=== PATIENT | female | born 1960 | race Caucasian/White ===

== ENCOUNTER 2024-10-21 18:09 | Outpatient (REF) | payer MEDICARE, OTHER, SELFPAY ==
--- OUTSIDE RECORDS SUMMARY | 2024-10-21 19:09 | XMS_ITS | Encounter Summary ---
Author Organization [facility] Address [address] [facility] [address] [place] [address] Phone Care Team Providers Care Combine Driver Name Role Phone Ramirez Wilhelm DO Unavailable Estefany Jackson BUILDING STONECUTTER Unavailable Belen Olvera MD Unavailable [phone] Laurie Lopez BUILDING STONECUTTER Unavailable [phone] Fide Atkinson NP Unavailable Summer Marrufo MD Unavailable [phone] Carlyle Ayon MD Unavailable Camron Richey MD Unavailable [phone] Laura Nicholas RDCS Unavailable [email or web address] Marci Contreras BUILDING STONECUTTER Unavailable [phone] Ramirez Wilhelm DO Primary Care Provider +[phone] Ramirez Wilhelm DO Unavailable Ramirez Wilhelm DO Primary Care Provider + Reason for Referral * MRI/CAT Scan - Closed Specialty Diagnoses / Procedures Referred By Ham donovan Referred To Contact Radiology Diagnoses LLQ pain Procedures MRI Pelvis (GI/) Sheri Ray PA 6 [facility] [place] [address] [place] [address] [facility] Main [address] Referral ID Status Reason Start Date Expiration Date Visits Re quested Visits Authorized [id number] Closed 05/13/2021 05/13/2022 1 1 Encounter Details Date Type Department Care Team (Latest Contact Info) Description 05/13/2021 Transcribe Orders Virtual Department 30 [place] [address] Sheri Ray PA [address] [place] [address] [place] [address] LLQ pain (Primary Dx) Social History Tobacco Use Types Packs/Day Years Used Date Smoking Tobacco: Never Smokeless Tobacco: Never Alcohol Use Standard Drinks/Week Comments Yes 2 (1 standard drink = 0.6 oz pur e alcohol) weekly Sex and Gender Information Value Date Recorded Sex Assigned at Not on file Gender Identity Not on file Sexual Orientation Not on file documented as of this encounter Plan of Treatment Upcoming Encounters Date Type Department Care Team (Late st Contact Info) Description 01/28/2025 1:45 PM EDT Office Visit [facility] [address] [place] [address] Jimy Morales MD [address] [place] [address] [email or web address] documented as of this encounter Results * MRI PELVIS WITH AND WITHOUT CONTRAST (05/26/2021 11:34 AM EDT) Anatomical Region Laterality Modality Pelvis Magnetic Resonan ce 05/26/2021 11:3 8 AM EDT Impressions 05/26/2021 12:05 PM EDT 1.1.5 cm simple right ovarian cyst. 2.Moderate left L5-S1 facet arthropathy and bone marrow edema. Narrative 05/26/2021 12:05 PM EDT COMPARISON: Pelvic ultrasound 03/28/2021. TECHNIQUE: Exam performed on a 1.5 Yenifer high-field MRI scanner. ??Large [id number] axial T1 through the bony pelvis, small field of view axial T2 and STIR, coronal T2 and sagittal T2 sequences were obtained. ??Axial T1 with fat suppression, coronal T1 with fat suppression and T2, followed by post-gadolinium axial, sagittal and coronal T1 with fat suppression sequences were obtained. MRI PELVIS FINDINGS: Vasculature: Normal. Genitourinary: Nondistended bladder. Uterus, endometrium and left ovary are normal. No adnexal masses. Incidental 1.5 cm simple right ovarian cyst. Gastrointestinal tract: Imaged intestinal tract is normal. Peritoneum/retroperitoneum: ??No lymphadenopathy, ascites or fluid collections. Musculoskeletal: No destructive or suspicious bone lesions. Moderate left L5-S1 facet arthropathy and bone marrow edema. Procedure Note Bill Romo MD - 05/26/2021 COMPARISON: Pelvic ultrasound 03/28/2021. TECHNIQUE: Exam performed on a 1.5 Yenifer high-field MRI scanner. [id number] axial T1 through the bony pelvis, small field of view axialT2 and STIR, coronal T2 and sagittal T2 sequences were obtained. Axial T1with fat suppression, coronal T1 with fat suppression and T2, followed bypost-gadolinium axial, sagittal and coronal T1 with fat suppressionsequences were obtained. MRI PELVIS FINDINGS: Vasculature: Normal. Genitourinary: Nondistended bladder. Uterus, endometrium and left ovaryare normal. No adnexal masses. Incidental 1.5 cm simple right ovariancyst. Gastrointestinal tract: Imaged intestinal tract is normal. Peritoneum/retroperitoneum: No lymphadenopathy, ascites or fluidcollections. Musculoskeletal: No destructive or suspicious bone lesions. Moderate leftL5-S1 facet arthropathy and bone marrow edema. IMPRESSION: 1.1.5 cm simple right ovarian cyst. 2.Moderate left L5-S1 facet arthropathy and bone marrow edema. Sheri RODRIGUEZ MR PELVIS documented in this encounter Visit Diagnoses Diagnosis LLQ pain- Primary Abdominal pain, left lower quadrant LLQ pain Abdominal pain, left lower quadrant documented in this encounter Care Teams Combine Driver Relationship Specialty Start Date End Date Ramirez Wilhelm DO PCP - General 05/07/17 10/13/24 Choco Ramirez LeDO 179 [facility] [place] [address] PCP - General Internal Medicine 10/14/24 Ramirez Wilhelm DO Historical LMR Provider 05/07/17 Estefany Jackson NP [address] [place] [address] Historical LMR Provider 05/07/17 2 Belen Olvera MD [address] [address] Historical LMR Provider 05/07/17 Laurie Lopez NP [address] [place] [phone] Historical LMR Provider 05/07/17 2 Fide Atkinson NP 21 [place] [address] [email or web address] Historical LMR Provider 05/07/17 2 Summer Marrufo MD 15 [facility], 2nd [place] [address] Historical LMR Provider 05/07/17 Carlyle Ayon MD [address] [place] [address] 202 [place] [address] Historical LMR Provider 05/07/17 07/30/21 Camron Richey MD [address] [place] [address] [address] [place] [address] Historical LMR Provider 05/07/17 07/30/21 Laura Nicholas, [facility] Historical LMR Provider 05/07/17 07/30/21 Marci Contreras NP [address] [place] [address] Historical LMR Provider 05/07/17 2 Ramirez Wilhelm DO [address] [place] [address] [place] [address] Insurance Assigned Provider 05/29/20 10/28/22 documented as of this encounter Additional Source Comments The information contained in this document represents components of the legal health record. It is not the complete legal health record.[facility]
--- OUTSIDE RECORDS SUMMARY | 2024-10-21 19:09 | XMS_ITS | Encounter Summary ---
Author Organization [facility] Address 399 [facility] [address] [place] [address] Phone Care Team Providers Care Coding Assistant Name Role Phone Heathersharmaine Ramirez Le DO Unavailable Estefany Jackson CLEAN ROOM TECHNICIAN Unavailable Belen Olvera MD Unavailable Laurie Lopez CLEAN ROOM TECHNICIAN Unavailable Fide Atkinson CLEAN ROOM TECHNICIAN Unavailable Summer Marrufo MD Unavailable Carlyle Ayon MD Unavailable Camron Richey MD Unavailable [phone] Laura Nicholas RDCS Unavailable [email or web address] Marci Contreras CLEAN ROOM TECHNICIAN Unavailable [phone] Ramirez Wilhelm DO Primary Care Provider [phone] Ramirez Wilhelm DO Unavailable Ramirez Wilhelm DO Primary Care Provider [phone] Encounter Details Date Type Department Care Team (Latest Contact Info) Description 01/19/2021 Transcribe Orders Virtual Department 30 [place] [address] Sheri Ray PA [address] [place] [address] [place] [address] Ventral hernia without obstruction or gangrene (Primary Dx) Social History Tobacco Use Types [...] Description 01/28/2025 1:45 PM EDT Office Visit [facility] 22 [facility] 301 [place] [address] Jimy Morales MD 22 [facility], [facility] 301 [place] [address] [email or web address] documented as of this encounter Results * US ABDOMINAL WALL (02/03/2021 12:41 PM EDT) Anatomical Region Laterality Modality Abdomen Ultrasound 02/03/2021 1:05 PM EDT Impressions 02/03/2021 1:09 PM EDT Unremarkable targeted ultrasound at the patient's area of concern. Narrative 02/03/2021 1:09 PM EDT PROCEDURE: ??Focused ultrasound of the abdomen was performed to assess the patient's area of concern, in the left lower quadrant. TECHNIQUE: Limited ultrasound evaluation of the abdomen focused on the was performed to assess the left lower quadrant, at the patient's area of concern. COMPARISON: Abdominopelvic CT from 04/14/2020 FINDINGS: Unremarkable targeted ultrasound at the patient's area of concern. No focal lesions or masses identified. Procedure Note Tio Kline MD - 02/03/2021 PROCEDURE: Focused ultrasound of the abdomen was performed to assess thepatient's area of concern, in the left lower quadrant. TECHNIQUE: Limited ultrasound evaluation of the abdomen focused on the wasperformed to assess the left lower quadrant, at the patient's area ofconcern. COMPARISON: Abdominopelvic CT from 04/14/2020 FINDINGS: Unremarkable targeted ultrasound at the patient's area of concern. Nofocal lesions or masses identified. IMPRESSION: Unremarkable targeted ultrasound at the patient's area of concern. Sheri Rayo Flor GALLARDO IMG US ABDOMEN documented in this encounter Visit Diagnoses Diagnosis Ventral hernia without obstruction or gangrene- Primary Unspecified ventral hernia without mention of obstruction or gangrene Ventral hernia without obstruction or gangrene Unspecified ventral hernia without mention of obstruction or gangrene documented in this encounter Additional Health Concerns Infection Onset Date Last Indicated Resolved Time CoV-Risk 02/28/2021 02/28/2021 03/10/2021 1:41 AM EDT documented as of this encounter Care Teams Coding Assistant Relationship Specialty Start Date End Date Ramirez Wilhelm DO PCP - General 05/07/17 10/13/24 Ramirez Wilhelm DO [address] [facility] [place] [address] PCP - General Internal Medicine 10/14/24 Ramirez Wilhelm DO Historical LMR Provider 05/07/17 Estefany Jackson NP [address] [place] [address] [address] [place] [address] Historical LMR Provider 05/07/17 2 Belen Olvera MD [address] [place] [address] [address] [place] [address] Historical LMR Provider 05/07/17 Laurie Lopez CLEAN ROOM TECHNICIAN [address] [facility] [place] [address] Historical LMR Provider 05/07/17 2 Fide Atkinson NP 21 [place] [address] [email or web address] Historical LMR Provider 05/07/17 2 Summer Marrufo MD 15 [facility], 2nd [place] [address] Historical LMR Provider 05/07/17 Carlyle Ayon MD [address] [address] Historical LMR Provider 05/07/17 07/30/21 Camron Richey MD [address] [address] Historical LMR Provider 05/07/17 07/30/21 Laura Nicholas RDCS Historical LMR Provider 05/07/17 07/30/21 Marci Contreras NP [address] [place] [address] Historical LMR Provider 05/07/17 2 Ramirez Wilhelm DO 179 [facility] [place] [address] Insurance Assigned Provider 05/29/20 10/28/22 documented as of this encounter Additional Source Comments The information contained in this document represents components of the legal health record. It is not the complete legal health record.[facility]
--- OUTSIDE RECORDS SUMMARY | 2024-10-21 19:09 | XMS_ITS | Encounter Summary ---
Author Organization [facility] Address [address] [facility] [address] [place] [address] Phone Care Team Providers Care Safety Sealer Name Role Phone Heathersharmaine Ramirez Le DO Unavailable Estefany Jackson FLOW MANAGER Unavailable Belen Olvera MD Unavailable Laurie Lopez FLOW MANAGER Unavailable Fide Atkinson FLOW MANAGER Unavailable Summer Marrufo MD Unavailable Carlyle Ayon MD Unavailable Camron Richey MD Unavailable [phone] Laura Nicholas RDCS Unavailable [email or web address] Marci Contreras FLOW MANAGER Unavailable [phone] Ramirez Wilhelm DO Primary Care Provider [phone] Ramirez Wilhelm DO Unavailable Ramirez Wilhelm DO Primary Care Provider [phone] Encounter Details Date Type Department Care Team (Latest Contact Info) Description 12/17/2020 Transcribe Orders Virtual Department 30 [place] [address] Jorge Quiroz MD 10 [place], [place] [phone] Pre-procedure lab exam (Primary Dx) Social History Tobacco Use Types [...] Description 01/28/2025 1:45 PM EDT Office Visit [facility] [address] [place] [address] 301 [place] [address] Jimy Morales MD [address] [place] [address] [email or web address] documented as of this encounter Results * COVID-19 PCR Order (12/22/2020 2:10 PM EDT) COVID-19 Comment [id number] [facility] COVID Testing Status In-house testing being performed [facility] 12/22/2020 2:10 PM EDT 12/22/2020 3:56 PM EDT Jorge Quiroz MD BODY FLUIDS AND STOO LS ORDERABLES [facility] 30 [place] [address] documented in this encounter Visit Diagnoses Diagnosis Pre-procedure lab exam- Primary Pre-procedural laboratory examination documented in this encounter Additional Health Concerns Infection Onset Date Last Indicated Resolved Time CoV-Risk 02/28/2021 02/28/2021 03/10/2021 1:41 AM EDT documented as of this encounter Care Teams Safety Sealer Relationship Specialty Start Date End Date Ramirez Wilhelm DO PCP - General 05/07/17 10/13/24 Ramirez Wilhelm DO [address] [place] [address] [place] [address] PCP - General Internal Medicine 10/14/24 Ramirez Wilhelm DO Historical LMR Provider 05/07/17 Estefany Jackson NP [address] [place] [address] 340 [place] [address] Historical LMR Provider 05/07/17 2 Beeln Olvera MD [address] [place] [address] 102 [place] [address] Historical LMR Provider 05/07/17 Laurie Lopez NP [address] [place] [address] [place] [address] Historical LMR Provider 05/07/17 2 Fide Atkinson NP 21 [place] [address] [email or web address] Historical LMR Provider 05/07/17 2 Summer Marrufo MD 15 [facility], 2nd [place] [address] Historical LMR Provider 05/07/17 Carlyle Ayon MD [address] [place] [address] 202 [place] [address] Historical LMR Provider 05/07/17 07/30/21 Camron Richey MD 22 [facility] 102 [place] [address] Historical LMR Provider 05/07/17 07/30/21 Laura Nicholas RDCS Historical LMR Provider 05/07/17 07/30/21 Marci Contreras NP [address] [place] [address] Historical LMR Provider 05/07/17 2 Ramirez Wilhelm DO [address] [place] [address] [place] [address] [email or web address] Insurance Assigned Provider 05/29/20 10/28/22 documented as of this encounter Additional Source Comments The information contained in this document represents components of the legal health record. It is not the complete legal health record.[facility]
--- OUTSIDE RECORDS SUMMARY | 2024-10-21 19:09 | XMS_ITS | Encounter Summary ---
Author Organization [facility] Address 399 [facility] [address] [place] [address] Phone Care Team Providers Care Vascular Technologist Sonographer Name Role Phone Choco Ramirez Le DO Unavailable Estefany Jackson CURTAIN MENDER Unavailable [phone] Belen Olvera MD Unavailable [phone] Laurie Lopez CURTAIN MENDER Unavailable [phone] Fide Atkinson NP Unavailable [phone] Summer Marrufo MD Unavailable [phone] Carlyle Ayon MD Unavailable Camron Richey MD Unavailable [phone] Laura Nicholas RDCS Unavailable [email or web address] Marci Contreras CURTAIN MENDER Unavailable [phone] Ramirez Wilhelm DO Primary Care Provider [phone] Bigsharmaine, Ramirez Le DO Unavailable Ramirez Wilhelm DO Unavailable + Bigsharmaine, Ramirez Le DO Primary Care Provider + Reason for Referral * MRI/CAT Scan - Closed Specialty Diagnoses / Procedures Referred By Ham donovan Referred To Contact Radiology Diagnoses Abdominal pain, unspecified abdominal location Procedures CT Abdomen/Pelvis Sheri Ray PA 6 [facility] [place] [address] [facility] Main [place] [address] [place] [address] Referral ID Status Reason Start Date Expiration Date Visits Re quested Visits Authorized [id number] Closed 04/06/2020 05/06/2020 1 1 Encounter Details Date Type Department Care Team (Latest Contact Info) Description 04/07/2020 Transcribe Orders Virtual Department 30 [place] [address] Sheri Ray PA [address] [place] [address] [place] [address] Abdominal pain, unspecified abdominal location (Primary Dx) Social History Tobacco Use Types Packs/Day Years Used Date Smoking Tobacco: Never Assessed Sex and Gender Information Value Date Recorded Sex Assigned at Not on file Gender Identity Not on file Sexual Orientation Not on file documented as of this encounter Plan of Treatment Upcoming Encounters Date Type Department Care Team (Late st Contact Info) Description 01/28/2025 1:45 PM EDT Office Visit [facility] [address] [place] [address] Jimy Morales MD [address] [place] [address] [email or web address] documented as of this encounter Results * CT ABDOMEN/PELVIS WITH CONTRAST (04/14/2020 4:20 PM EDT) Anatomical Region Laterality Modality Abdomen, Pelvis Computed Tomogra phy 04/14/2020 4:33 PM EDT Impressions 04/14/2020 4:40 PM EDT Stable non-obstructing small left intrarenal calculus. No evidence of pyelonephritis, abscess, or other acute intra-abdominal or retroperitoneal pathology. TOTAL CTDIvol: mGy POS - [id number] Narrative 04/14/2020 4:40 PM EDT COMPARISON: 01/18/[address] and 04/19/[address] TECHNIQUE: Helical scanning was performed from the dome of the liver through the inferior pubic rami following intravenous administration of contrast material. ??Sagittal and coronal reformats generated. Automated exposure control utilized. FINDINGS: There is a stable 3 mm calculus in the lower pole of the left kidney. No additional urinary calculi identified. No renal mass, abscess, cyst, hydronephrosis, or perinephric stranding identified. Bladder is collapsed, limiting evaluation. Liver is stable in appearance without focal mass lesions, dominant cysts, bile duct dilatation, or perihepatic ascites having developed in the interim. There are small chronic cysts in the right and left hepatic lobes. Spleen and adrenal glands are unremarkable in appearance. Small chronic splenule. No pancreatic mass, duct dilatation, or peripancreatic inflammatory changes are noted. No evidence of small bowel obstruction. Appendix unremarkable in appearance. No paracolic inflammatory changes are present. No free fluid collections are demonstrated in the dependent portion of the pelvis. No bowel containing abdominal wall hernia. No evidence of aortoiliac aneurysm. No pathologically enlarged mesenteric, para-aortic, iliac chain, or inguinal lymph nodes are identified. 455 no acute airspace infiltrate or pleural effusion demonstrated at the lung bases. No traumatic or destructive skeletal lesions are apparent. Procedure Note Robel Rodney MD - 04/14/2020 COMPARISON: 01/18/[address] and 04/19/[address] TECHNIQUE: Helical scanning was performed from the dome of the liverthrough the inferior pubic rami following intravenous administration ofcontrast material. Sagittal and coronal reformats generated. Automatedexposure control utilized. FINDINGS: There is a stable 3 mm calculus in the lower pole of the left kidney. Noadditional urinary calculi identified. No renal mass, abscess, cyst,hydronephrosis, or perinephric stranding identified. Bladder is collapsed,limiting evaluation. Liver is stable in appearance without focal mass lesions, dominant cysts,bile duct dilatation, or perihepatic ascites having developed in theinterim. There are small chronic cysts in the right and left hepaticlobes. Spleen and adrenal glands are unremarkable in appearance. Small chronicsplenule. No pancreatic mass, duct dilatation, or peripancreaticinflammatory changes are noted. No evidence of small bowel obstruction. Appendix unremarkable inappearance. No paracolic inflammatory changes are present. No free fluidcollections are demonstrated in the dependent portion of the pelvis. Nobowel containing abdominal wall hernia. No evidence of aortoiliac aneurysm. No pathologically enlarged mesenteric,para-aortic, iliac chain, or inguinal lymph nodes are identified. 455 no acute airspace infiltrate or pleural effusion demonstrated at thelung bases. No traumatic or destructive skeletal lesions are apparent. IMPRESSION: Stable non-obstructing small left intrarenal calculus. No evidence ofpyelonephritis, abscess, or other acute intra-abdominal or retroperitonealpathology. TOTAL CTDIvol: mGy POS - [id number] Sheri GALLARDO IMQuinton CT ABD/PELVIS documented in this encounter Visit Diagnoses Diagnosis Abdominal pain, unspecified abdominal location- Primary Abdominal pain, unspecified abdominal location documented in this encounter Additional Health Concerns Infection Onset Date Last Indicated Resolved Time CoV-Risk 02/28/2021 02/28/2021 03/10/2021 1:41 AM EDT documented as of this encounter Care Teams Vascular Technologist Sonographer Relationship Specialty Start Date End Date Ramirez Wilhelm DO [email or web address] PCP - General 05/07/17 10/13/24 Ramirez Wilhelm DO 179 [facility] [address] [email or web address] PCP - General Internal Medicine 10/14/24 Ramirez Wilhelm DO [email or web address] Historical LMR Provider 05/07/17 Estefany Jackson NP [address] [address] Historical LMR Provider 05/07/17 2 Belen Olvera MD [address] [address] Historical LMR Provider 05/07/17 Laurie Lopez NP [address]455 [place] [address] Historical LMR Provider 05/07/17 2 Fide Atkinson NP [address] [place] [address] [email or web address] Historical LMR Provider 05/07/17 2 Summer Marrufo MD 15 [facility], 2nd [place] [address] Historical LMR Provider 05/07/17 Carlyle Ayon MD [address] [place] [address] Historical LMR Provider 05/07/17 07/30/21 Camron Richey MD [address] [address] Historical LMR Provider 05/07/17 07/30/21 Laura Nicholas, [place] Historical LMR Provider 05/07/17 07/30/21 Marci Contreras NP [address] [place] [address] Historical LMR Provider 05/07/17 2 HeatherRamirez schmid DO [address] [place] [address] Insurance Assigned Provider 11/23/18 05/01/20 Ramirez Wilhelm DO 179 [place] [address] Insurance Assigned Provider 05/29/20 10/28/22 documented as of this encounter Additional Source Comments The information contained in this document represents components of the legal health record. It is not the complete legal health record.[facility]
--- OUTSIDE RECORDS SUMMARY | 2024-10-21 19:09 | XMS_ITS | Encounter Summary ---
Author Organization [facility] Address [address] [facility] [address] [place] [phone] Phone Care Team Providers Care City Superintendent Name Role Phone Ramirez Wilhelm DO Unavailable Estefany Jackson SUPERVISOR TYPE BAR AND SEGMENT Unavailable [phone] Belen Olvera MD Unavailable [phone] Laurie Lopez SUPERVISOR TYPE BAR AND SEGMENT Unavailable [phone] Fide Atkinson NP Unavailable [phone] Summer Marrufo MD Unavailable [phone] Carlyle Ayon MD Unavailable Camron Richey MD Unavailable [phone] Laura Nicholas RDCS Unavailable [email or web address] Marci Contreras SUPERVISOR TYPE BAR AND SEGMENT Unavailable [phone] Ramirez Wilhelm DO Primary Care Provider +[phone] Ramirez Wilhelm DO Unavailable Ramirez Wilhelm DO Primary Care Provider [phone] Encounter Details Date Type Department Care Team (Late st Contact Info) Description 04/01/2021 Procedure Pass [facility] - [address] [place] [address] Social History Tobacco Use Types Packs/Day Years [...] Upcoming Encounters Date Type Department Care Team ([facility] Contact Info) Description 01/28/2025 1:45 PM EDT Office Visit [facility] [address] [place] [address] [address] [place] [address] Jimy Morales MD [address] [place] [address] [address] [place] [address] documented as of this encounter Visit Diagnoses Not on filedocumented in this encounter Care Teams City Superintendent Relationship Specialty Start Date End Date Ramirez Wilhelm DO PCP - General 05/07/17 10/13/24 Ramirez Wilhelm DO [address] [place] [address] [place] [address] PCP - General Internal Medicine 10/14/24 Ramirez Wilhelm DO Historical LMR Provider 05/07/17 Estefany Jackson NP [address] [place] [phone] Historical LMR Provider 05/07/17 2 Belen Olvera MD [address] [place] [address] [address] [place] [address] Historical LMR Provider 05/07/17 Laurie Lopez SUPERVISOR TYPE BAR AND SEGMENT [address] [place] [phone] Historical LMR Provider 05/07/17 2 Fide Atkinson NP [address] [place] [address] [email or web address] Historical LMR Provider 05/07/17 2 Summer Marrufo MD [address] [facility], [address]nd [place] [address] Historical LMR Provider 05/07/17 Carlyle Ayon MD [address] [place] [address] Historical LMR Provider 05/07/17 07/30/21 Camron Richey MD [address] [facility] [place] [address] [place] [address] Historical LMR Provider 05/07/17 07/30/21 Laura Nicholas, [place] Historical LMR Provider 05/07/17 07/30/21 Marci Contreras NP [address] [place] [address] Historical LMR Provider 05/07/17 2 Ramirez Wilhelm DO [address] [place] [address] [place] [address] Insurance Assigned Provider 11/7/20 4/8/23 documented as of this encounter Additional Source Comments The information contained in this document represents components of the legal health record. It is not the complete legal health record.[facility]
--- OUTSIDE RECORDS SUMMARY | 2024-10-21 19:09 | XMS_ITS | Data Portability ---
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) MDM MODERATE MUST MEET 2 OUT OF 3 ELEMENTS: PROBLEMS, DATA OR RISK ELEMENT 1: PROBLEMS ADDRESSED 1 OR MORE CHRONIC ILLNESS WITH EXACERBATION OR 2 OR MORE STABLE CHRONIC ILLNESSES OR 1 UNDIAGNOSED NEW PROBLEM OR 1 ACUTE ILLNESS W/SYMPTOMS OR 1 ACUTE COMPLICATED INJURY ELEMENT 2: DATA MUST MEET 1 OF 3 CATEGORIES CATEGORY 1: REVIEW OF PRIOR EXTERNAL NOTES, REVIEW OF RESULTS, ORDERING OF EACH TEST, ASSESSMENT REQUIRING INDEPENDENT HISTORIAN OR CATEGORY 2: INDEPENDENT INTERPRETATION OF TESTS BY ANOTHER PHYSICIAN OR SPECIALIST OR CATEGORY 3: DISCUSSION OF MGT OR TEST INTERPRETATION W/EXTERNAL PHYSICIAN OR SPECIALIST ELEMENT 3: RISK RISK OF COMPLICATIONS AND/OR MORBIDITY OR MORTALITY OF PATIENT MANAGEMENT PROVIDER MUST THOROUGHLY DOCUMENT EACH ELEMENT THAT IS COVERED Not available 04/02/2023 12:31:44 09/03/2023 09/03/2023 Patient agreed and verbally consents to this audio and video Telehealth appt via a secure platform [email or web address] Not available 09/03/2023 10:30:08 Plan of Treatment Reminders Order Date Submit Date Provider Last Modified By Organization Details Last Modified Time Details Appointments FOLLOW UP 15 2024 02:30P M SAMI LUTZ Not available Not available Not available Lab urinalysi s complete, reflex culture 2024 025 [facility], [address] [facility], [place], [address], 10/21/2024 14:43:44 vitamin D, 25-hydrox y, total, serum 2022 023 [facility], [address] [facility], [address], [place], [address], 04/02/2023 12:36:13 lipid panel, blood 2022 023 [facility], [address], [address], [place], [address], 04/02/2023 12:36:13 CMP, serum or plasma 2022 023 [facility], [address] [place] [address], [address], [place], [address], 04/02/2023 12:36:13 CBC w/ auto diff 2022 023 [facility], [address] [facility] [address], [address], [place], [address], 04/02/2023 12:36:[address] referral [address] [facility], [address] [place] [address], [address], 09/05/2023 10:20:49 Procedures None recorded. Surgeries None recorded. Imaging XR, kidney + ureter + bladder 2024 025 [facility] ([place]), [address] [place] [address] Loren Hess, [place], [address], 10/21/2024 15:33:29 XR, elbow, 3 or more view 2024 025 [email or web address] [facility] ([place]oren)[address] [place], [address], 10/21/2024 15:33:29 CT, heart, w/o contrast, w/ coronary calcium score 2022 023 [facility], [address] [place], [address], 04/09/2023 09:34:15 XR, ribs, bilateral 2021 022 [email or web address] Not available 03/13/2022 08:52:51 Medication Orders prednison e 10 mg tablet 2023 024 [facility], [address] [place], [address], 09/03/2023 10:34:08 Cipro 500 mg tablet 2023 024 [facility], [address] [place], [address], 09/03/2023 10:34:18 losartan 25 mg tablet 2022 023 [facility], [address] [place], [address], 04/02/2023 12:35:51 tramadol 50 mg tablet 2021 022 [facility], [address] [place], [address], 02/27/2022 15:23:24 oxycodone 5 mg tablet 2021 022 [facility] [address] [place], [address], 04/02/2023 12:02:19 Patient TargetsNo targets recorded. 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 [facility] [address] [place] [address] Dr, [place] Pimentel, [address], 04/02/2023 12:23:27 06/22/20 23 06/22/2023 CT, heart , w/o contr ast, w/ coron gianluca calci um score No observ ation record ed. [facility] [address] [place], [address], 06/22/2023 13:36:04 Result Notes None recorded. Problems Name Problem SNOMED Code Status Onset Date Resolution Date Notes Provider Name and Address Organization Details Recorded Time Edema of lower extremit y 533689101 Active 2017 Not Available [facility] 2 10:11:50 Epigastr ic pain 76915579 Active 2017 Not Available [facility] 2 10:11:50 Fracture of fourth lumbar vertebra 878625564 Active 2018 Not Available [facility] 2 10:11:50 Rib pain 053010309 Active 2021 SAMI LUTZ [address] [place], [address], [facility] 2 14:50:37 Vitamin D deficien 71646558 Active 2022 Ramirez Wilhelm DO [address] [place], [address], [facility] 3 12:31:54 Chronic cough 68249357 Active 2022 Ramirez Wilhelm DO [address] [place] [address], [address], [facility] 3 12:33:44 COVID-19 263210434 Active 2022 Ramirez Wilhelm DO [address] [place] [address], [address], [facility] 3 13:01:56 Cough 37647041 Active 2022 Ramirez Wilhelm DO [address] [place] [address], [address], [facility] 3 15:15:32 Hearing loss 62279156 Active 2022 Ramirez Wilhelm DO [address] [place] [address], [address], [facility] 3 21:20:45 Pain in throat 499264525 Active 2023 SAMI LUTZ [address] [place] [address], [address], [facility] 4 10:29:39 Acute pharyngi tis 967264100 Active 2023 SAMI LUTZ [address] [place] [address], [address], [facility] 4 10:29:58 Pain of breast 77208623 Active 2023 Ramirez Wilhelm DO [address] [place] [address], [address], [facility] 4 23:00:54 Pain of right breast 1538537455 Active 2023 Ramirez Wilhelm DO [address] [place] [address], [address], [facility] 4 13:37:45 Sleep apnea 42259654 Active 2023 Ramirez Wilhelm DO [address] [place], [address], [facility] 4 21:52:43 Acute urinary tract infectio n 842521891 Active 2023 SAMI LUTZ [address] [place], [address], [facility] 4 12:31:24 Dysuria 85227114 Active 2024 SAMI LUTZ [address] [place], [address], [facility] 5 14:41:17 Cystitis 96092043 Active 2024 SAMI LUTZ [address] [place], [address], [facility] 5 14:45:36 Pain of left elbow joint 04093055095 214238 Active 2024 SAMI LUTZ [address] [place], [address], [facility] 5 14:49:41 Essentia l hyperten thai 31456390 Active 2017 Not Available [facility] 2 10:11:50 Hypercho lesterol emia 35512179 Active 2017 Not Available [facility] 2 10:11:50 Polyp 936873897 Active 2017 Endometri al polyp Not Available [facility] 2 10:11:50 Cyst of ovary 75726567 Active 2017 Not Available [facility] 2 10:11:50 History of calculus of kidney 618225005 Active 2017 Not Available [facility] 2 10:11:50 Family history of malignan t neoplasm 539908012 Active 2017 cancer of the ovaries and breast cancer Not Available [facility] 2 10:11:50 Problem Notes None recorded. Procedures Surgical History None recorded. Imaging Results Imaging Date Name Status LastModified by Organiz ation Details LastModified Time 05/15/2022 MAMMO, screening, digital, bilateral completed [facility] [address] [place], [address], 04/02/2023 12:23:27 06/22/2023 CT, heart, w/o contrast, w/ coronary calcium score completed [facility] [address] [place], [address], 06/22/2023 13:36:04 Procedure Notes None recorded. Medical Equipment None Reported. Allergies Allergen ID Allergen Name Allergen Category Reaction Reaction Severity Criticality Documentation Date Start Date Code Code System Note Provider Name and Address Organization Details Recorded Time 1492 Bactrim medicatio n Not available Not available Not available 12/19/2017 51639 9 RxNorm Susan álvarez [facility] 8 15:04:07 1493 erythromy kelli medicatio n Not available Not available Not available 12/19/2017 4053 RxNorm Susan álvarez [facility] 8 15:04:27 Medications Name Sig Start Date Stop Date Status Note LastModified by Organization Details LastModified Time amoxicillin 500 mg capsule TAKE 1 CAPSULE EVERY 8 HOURS BY ORAL ROUTE FOR 10 DAYS. active Not Available Not Available No t Available Anti-Diarrh eal (loperamide ) 2 mg tablet TAKE 1 TABLET BY MOUTH TWICE A DAY FOR 15 DAYS 09/15 completed Not Available Not Available Not Available atorvastati n 40 mg tablet TAKE 1 TABLET BY MOUTH EVERY DAY 2024 active Not Available Not Available Not Avai lable prednisone 10 mg tablet PLEASE SEE ATTACHED FOR DETAILED DIRECTION S active Not Available Not Available No t Available cefuroxime axetil 250 mg tablet Take 1 tablet every 12 hours by oral route for 10 days. 12/28 completed Not Available Not Available Not Available azithromyci n 250 mg tablet TAKE 2 TABLETS BY MOUTH TODAY, THEN TAKE 1 TABLET DAILY FOR 4 DAYS DIRECTED active Not Available Not Available No t Available metoprolol succinate ER 50 mg tablet,exte nded release 24 hr TAKE 1 TABLET BY MOUTH EVERY DAY active Not Available Not Available No t Available atenolol 100 mg tablet 12/21 completed Not Available Not Available Not Available Patanol 0.1 % eye drops INSTILL 1 DROP INTO AFFECTED EYE(S) BY OPHTHALMI C ROUTE 2 TIMES PER DAY AT AN INTERVAL OF 6 TO 8 HOURS 04/17 completed Not Available Not Available Not Available hydrocodone 5 mg-acetamin ophen 325 mg tablet Take 1 tablet every 6 hours by oral route for 7 days. 02/17 completed Not Available Not Available Not Available fluticasone propionate 0.05 % topical cream APPLY TWICE A DAY TO AFFECTED AREAS FOR TWO WEEKS DIRECTED active Not Available Not Available No t Available fluorouraci l 5 % topical cream PLEASE SEE ATTACHED FOR DETAILED DIRECTION S active Not Available Not Available No t Available ciprofloxac in 250 mg tablet TAKE 1 TABLET BY MOUTH TWICE A DAY FOR 5 DAYS active Not Available Not Available No t Available amlodipine 5 mg tablet take 1 tablet by mouth once a day 01/06 completed Not Available Not Available Not Available tretinoin 0.05 % topical cream APPLY A PEA SIZED AMOUNT TO ENTIRE FACE 2-3 NIGHTS A WEEK active Not Available Not Available No t Available ciprofloxac in 500 mg tablet TAKE 1 TABLET BY MOUTH EVERY 12 HOURS FOR 7 DAYS active Not Available Not Available No t Available tramadol 50 mg tablet Take 1 tablet every 6 hours by oral route as needed for 15 days. 02/27 completed Not Available Not Available Not Available ketorolac 0.5 % eye drops PLACE 1 DROP INTO OPERATIVE EYE 3 TIMES A DAY START 2 DAYS PRIOR TO SURGERY AND TAPER DIRECTED 11/19 completed Not Available Not Available Not Available oxycodone-a cetaminophe n 5 mg-325 mg tablet 12/21 completed Not Available Not Available Not Available lorazepam 0.5 mg tablet TAKE 1 TABLET BY MOUTH THREE TIMES A DAY NEEDED FOR 10 DAYS active Not Available Not Available No t Available oxycodone-a cetaminophe n 10 mg-325 mg tablet active Not Available Not Available No t Available tamsulosin 0.4 mg capsule TAKE 1 CAPSULE BY MOUTH EVERY DAY 09/15 completed Not Available Not Available Not Available losartan 25 mg tablet TAKE 1 TABLET BY MOUTH EVERY DAY active Not Available Not Available No t Available nitrofurant oin macrocrysta l 25 mg capsule 12/21 completed Not Available Not Available Not Available lisinopril 5 mg tablet TAKE 1 TAB BY MOUTH DAILY. CALL OFFICE FOR FURTHER REFILLS active Not Available Not Available No t Available levofloxaci n 500 mg tablet Take 1 tablet every 24 hours by oral route for 7 days. active Not Available Not Available No t Available methylpredn isolone 4 mg tablets in a dose pack Take 1 dose pk by oral route as directed for 6 days. active Not Available Not Available No t Available albuterol sulfate HFA 90 mcg/actuati on aerosol inhaler INHALE 2 PUFFS EVERY 4 HOURS NEEDED FOR SHORTNESS OF BREATH/CO UGH/WHEEZ E. active Not Available Not Available No t Available fluticasone propionate 50 mcg/actuati on nasal spray,suspe nsion SPRAY 1 SPRAY INTO EACH NOSTRIL TWICE A DAY FOR 10 DAYS active Not Available Not Available No t Available doxycycline hyclate 100 mg tablet TAKE 1 TABLET BY MOUTH TWICE A DAY FOR 7 DAYS. active Not Available Not Available No t Available atenolol 50 mg tablet 12/21 completed Not Available Not Available Not Available naproxen 500 mg tablet 03/31 completed Not Available Not Available Not Available amoxicillin 875 mg-potassiu m clavulanate 125 mg tablet Take 1 tablet every 12 hours by oral route for 10 days. active Not Available Not Available No t Available oxycodone 5 mg tablet TAKE 1 TABLET BY MOUTH EVERY 4 HOURS NEEDED FOR 7 DAYS 04/02 completed Not Available Not Available Not Available escitalopra m 20 mg tablet TAKE 1 TABLET BY MOUTH EVERY DAY active Not Available Not Available No t Available nitrofurant oin monohydrate /macrocryst als 100 mg capsule TAKE 1 CAPSULE BY MOUTH EVERY 12 HOURS FOR 7 DAYS active Not Available Not Available No t Available chlorhexidi ne gluconate 0.12 % mouthwash active Not Available Not Available No t Available Aspir-81 take 1 tablet by mouth once a day active Not Available Not Available No t Available Paxlovid 300 mg (150 mg x 2)-100 mg tablets in a dose pack Take 3 tablets twice a day by oral route for 5 days. active Not Available Not Available No t Available Vitals Date Recorded Body weight Heart rate Oxygen saturation Oxygen saturation in Arterial blood by Pulse oximetry Systolic blood pressure Diastolic blood pressure Provider Name and Address Organization Details Last Updated DateTime 3 64231.6 6 g 69 /min 98 % 98 % 122 mm[Hg] 80 mm[Hg] Yuridia Vargas [facility] 3 12:04:54 Date Recorded Body height Body mass index (BMI) Body weight Systolic blood pressure Diastolic blood pressure Provider Name and Address Organization Details Last Updated DateTime 10/21/2024 167.64 cm 27.1 kg/m2 59366.52 g 124 mm[Hg] 80 mm[Hg] Becky Mcclendon [facility] 5 14:36:22 Social History Question Answer Notes LastModified by Organizat ion Details LastModified Time Tobacco Smoking Status Never Smoker Not Available [facility] 05/25/2020 03:36:23 What Was The Date Of Your Most Recent Tobacco Screening? 10/04/2021 [email or web address] Information not available 04/02/2023 Sex: Unknown Functional Status None recorded. Mental Status None recorded. Family History Nothing Reported. Medical History No medical history recorded. Gynecological HistoryNo gynecological history recorded. Obstetrics History GPAL:G 0 P 0 0 0 0 Immunizations Vaccine Type Date Status Note Provider Nam e and Address Organization Details Recorded Time COVID-19, mRNA, LNP-S, PF, 100 mcg/0.5mL dose or 50 mcg/0.25mL dose 07/27/2021 kian álvarez [facility] 07/29/2021 10:12:54 COVID-19, mRNA, LNP-S, PF, 100 mcg/0.5mL dose or 50 mcg/0.25mL dose 08/06/2020 completed Laurita álvarez [facility] 11/19/2020 10:01:47 COVID-19, mRNA, LNP-S, PF, 100 mcg/0.5mL dose or 50 mcg/0.25mL dose 09/08/2020 completed Laurita álvarez [facility] 11/19/2020 10:01:59 Past Encounters Encounter ID Performer Location Encounter Start Date Encounter Closed Date Diagnosis/Indication Diagnosis SNOMED-CT Code Diagnosis ICD10 Code Diagnosis Note [id number] Clarissa Martin NP, S [facility] [address] [facility],[place] [address] 12/21/2017 10:13:21 12/21/2017 10:56:56 Acute pelvic pain 437217758 R10.2 has had endometria l polyp and ovarian cyst in past Essential hypertension 26732384 I10 stable Hypercholesterolemia 136 64925 E78.00 follow History of calculus of kidney 286011088 Z87.442 f/u after results, pt. defers pain medication s Ganglion cyst 63305528 M 67.40 no necessary interventi on [id number] Clarissa Martin NP, [facility] [address] [facility],[place] [address] 12/24/2017 14:09:12 12/24/2017 17:26:36 Sensation of irritation of eye proper 440462915 H57.8 Hypercholesterolemia 136 71237 E78.00 risk ratio, 3.7, increased from 2.8 2014, restart regular exercise program to raise HDL History of calculus of kidney 211622049 Z87.442 f/u after results, pt. defers pain medication s [id number] Ramirez Wilhelm [facility] [address] [facility],[place] [address] 03/29/2018 09:52:46 03/29/2018 11:04:40 Essential hypertension 15438819 I10 bp good and will have to change amlodipine bc of swelling change to lisinopril 5 Edema of l ower extremity 091201143 R60.0 stop amlodipine as discussed Epigastric pain 48459729 R10.13 will need US and if neg will get UGI [id number] [facility] [address] [facility],[place] [address] 04/17/2018 15:25:27 04/17/2018 16:17:34 Left lower quadrant pain 366960713 R10.32 high suspicion of diverticul itis will treat empiricall y while we set up cat scan if sx worsen, spikes fever - go to ED - pt understood Essential hypertension 79664856 I10 stable [id number] Ramirez Wilhelm [facility] [address] [facility],[place] [address] 01/06/2019 15:01:55 01/06/2019 16:04:45 Fracture of transverse process of lumbar vertebra 510246268 S32.009A will need tx with pain medication at this time [id number] Ramirez Wilhelm DO [facility] [address] [facility], [place] [address] 02/17/2019 11:05:45 02/17/2019 11:59:00 Essential hypertension 75835149 I10 bp good and will have to change amlodipine bc of swelling change to lisinopril 5 Fracture o f fourth lumbar vertebra 179705452 S32.049A will be seeing ortho weds she needs a MRI etc as i think she has a second injury [id number] Ramirez Wilhelm DO [facility] [address] [facility], [place] [address] 09/23/2019 15:18:39 09/23/2019 16:04:34 Right upper quadrant pain 956479456 R10.11 consider gall bladder [id number] SAMI LUTZ [facility] [address] [place] [address], [place] [address] 12/29/2019 14:26:22 12/29/2019 16:13:31 Tachycardia 5335996 R00.0 will check her thyroid and see if it's related to that if she continues to have episodes will do holter and stress test again [id number] SAMI LUTZ [facility] [address] [place] [address], [place] [address] 03/31/2020 10:17:50 03/31/2020 11:09:08 Dysuria 86323809 R30.9 urine normal Abdominal pain 22612856 R10.[address] and see if anything is detected that would explain the pain like a kidney stone stuck at the juction of the ureter and bladder [id number] SAMI LUTZ [facility] [address] [facility], [place] [address] 06/14/2020 09:39:26 06/15/2020 08:11:50 Abdominal pain 26548996 R10.9 will start with abdomen US and pelvis may need CT as well Diarrhea 55622843 R19.7 will give script for imodium keep hydrated [id number] SAMI LUTZ [facility] [address] [facility], [address] [facility] [place] [address] 09/15/2020 13:54:05 09/15/2020 16:19:43 Bradycardia 87024042 R00.1 will start with event monitor and if necessary with fu with echo and US carotid for cardiac work up Dizziness 711794645 R42 will start with event monitor and fu with echo and US carotid if needed to see if related to cardiac etiology ie rick arrythmia or CAD Pain in right knee 69881 66036 59206 M25.561 having pain in the right knee will fu with XRs and possible cortisone shot Multiple b enign melanocytic nevi 820909356 D22.9 needs new referral to derm for yearly check up [id number] SAMI LUTZ [facility] [address] [facility], [address] [facility] [place] [address] 11/19/2020 09:51:58 11/19/2020 11:22:36 Pre-surgery evaluation 962101028 Z01.818 The patient was seen in the office today for pre-op evaluation . All medical conditions on patient's problem list were addressed and are currently stable, no interventi on needed at this time. Based on history and physical performed, the patient is cleared for surgery. Essential hypertension 28514739 I10 BP excellent, well controlled by medication [id number] SAMI LUTZ [facility] [address] [facility], [address] [place] [facility] [place] [address] 01/19/2021 10:23:31 01/19/2021 11:09:19 Hernia of anterior abdominal wall 983844036 K43.9 [place] [id number] SAMI LUTZ [facility] [address] [facility],[place] [address] [address] [facility] [place] [address] 04/22/2021 11:43:43 04/22/2021 15:25:37 Cyst of left ovary 2284129681 6831581 N83.292 [place] fu with animal [facility] [place] [id number] Ramirez Wilhelm DO [facility] [address] [facility],[place] [address] 10/04/2021 13:57:59 10/04/2021 14:38:45 Acute tear of medial meniscus of right knee 4594332354 8418265 S83.241A severe pain even 2 month s since injury we will refer to ortho Essential hypertension 70575767 I10 bp good and will have to change amlodipine bc of swelling change to lisinopril 5 [id number] SAMI LUTZ [facility] [address] [facility] [address],[place] [address] 02/27/2022 11:27:40 02/27/2022 15:22:47 Rib pain 237065785 R07.81 will fu with XR ribs and start on tramadol [id number] Ramirez Wilhelm DO [facility] [address] [facility] [address],[place] [address] 04/02/2023 11:49:52 04/02/2023 13:27:07 Essential hypertension 45215130 I10 bp good and will have to change amlodipine bc of swelling change to losart due to cough Hypercholesterolemia 136 58484 E78.00 Vitamin D deficiency 347 50131 E55.9 Chronic cough 58267416 R 05.3 she is on lisinopril will stop and take losartan 50mg [id number] SAMI LUTZ [facility] [address] [facility],[place] [address] 09/03/2023 10:00:42 09/03/2023 11:19:22 Pain in throat 737715337 R07.0 h/x of abscess Acute pharyngitis 487101 003 J02.8 start proactive steroid and abx Hearing loss 42142071 H9 0.6 will set up with new audio [id number] Ramirez Wilhelm DO [facility] [address] [facility],[place] [address] 02/19/2024 08:37:05 02/20/2024 16:29:41 Depression screening 780834180 Z13.31 Pain of breast 07889962 N64.4 given discomfort and VERY strong family hx of breast cancer in 2 siblings we are going to need an mri of the breast [id number] SAMI LUTZ [facility] [address] [facility],[place] [address] 10/21/2024 14:26:59 10/21/2024 15:33:29 Dysuria 14468156 R30.9 elevated leuksrecom mended KUB and send out urine Cystitis 85525809 N30.00 ? infection vs inflammati on Pain of le ft elbow joint 5268076697 3340552 M25.522 having pain for 4 to 5 mos Health Concerns Section Related Observation LastModified by Organization Detai ls LastModified Time None Recorded Concern Status LastModified by Organization Details LastModified Time None Recorded Advance Directives Directive None Recorded Payers Encounter Date Sequence Insurance Name Policy Number Policy Hawkins Covered Member ID Hawkins Member ID Guarantor Name 02/27/2022 1 [employer] IN[employer]ITY [employer]AN (PPO) [id number] Erika A Chalo-Ava y [id number] Joi Grimm 04/02/2023 1 [employer] - [employer] INDEMNITY PLAN (PPO) [id number] 8 Erika A Chalo-Beccale y [id number] Joi Grimm 09/03/2023 1 [employer] INDEMNITY PLAN (PPO) [id number] 8 Erika A Chalo-Dawle y [id number] Joi Grimm 02/18/2024 1 [employer] - [employer]IC INDEMNITY PLAN (PPO) [id number] 8 Erika A Isabel-Dawle y [id number] Joi Grimm 10/21/2024 1 [place] [employer] Joi Madsen [id number] 2 Joi Grimm 10/21/2024 2 [employer] - PHCS (PPO) [id number] 8 Joi De y [id number] Joi Grimm Notes Date Note Type Note Provider Name a nd Address Organization Details Recorded Time 02/27/2022 text/html c/o fall on the ribs tele-med phone callpatient consents to phone the patient reports that she fell walking up a hill, she trippedhill was steep landed on her side, ribs, no head injury or LOCreports that she was taking IBU for the pain without significant relief and the pain continueshaving issues with taking deep breathes as it caused pain would like to r/o any rib fx and/or complication for rib fracturewill start on tramadol for pain, d/c IBU dt stomach issues SAMI LUTZ [address] [place], [address], [facility] 02/27/2022 15:30:28 04/02/2023 text/html here for rechk since episode of dizziness and light headedness relates that the episode has resolvedno assoc cp no sob Ramirez Wilhelm DO [address] [place], [address], [facility] 04/02/2023 12:36:47 09/03/2023 text/html c/o sore throat The patient is participating in this appointment via telemedicine communication with a phone call/video calling service (QBE)The patient consents to use of these platforms in place of an in-person appointment due to either sick symptoms the patient is presenting with or current office closure due to COVID exposure in order to keep our office staff and patients safe the patient has been having enlarged tonsilshas a h/x of peritonsilar abscess the patient reports she has swollen LN's as wellthe patient reports the patient denies fever feels ill, just run down having pain with swallowing and drinkingear pain on left side, most likely radicular pain will start something to prevent worsening infection SAMI LUTZ [address] [place], [address], [facility] 09/03/2023 10:36:25 02/18/2024 text/html here for chk of her left breast pain relates that ir has been painful for several weeks and seems to be worsenote she has 2 sisters with a hx of breast cancer both youngerlast mammo was in april oflasst year and was olkgiven the discomfort this certainly warrants further eval Ramirez Wilhelm DO [address] [place], [address], [facility] 02/19/2024 23:02:47 10/21/2024 text/html c/o dysuria the patient reports that she has noticed ongoing issues with feeling of incomplete voidingthe patient reports that she has some pelvicthe patient reports frequency only leuks on urine recommended f/u with send out urine and KUB having left elbow pain x 4 moswhen she leans on it?bone spur or tendinitis SAMI LUTZ [address] [facility], [place], [address], [facility] 10/21/2024 14:59:09 OBGyn Episode No OBEpisode recorded.
--- OUTSIDE RECORDS SUMMARY | 2024-10-21 19:09 | XMS_ITS | Continuity of Care Document ---
Author Organization [facility] Address [address] [facility] [place] [address] [place] [address] Assessment No assessment recorded. Plan of Treatment Reminders Order Date Submit Date Provider Last Modified By Organization Details Last Modified Time Details Appointments FOLLOW UP 15 2024 02:30P M SAMI LUTZ Not available Not available Not available Lab urinalysi s complete, reflex culture 2024 025 [facility], [address] [place] [address], [place], [address], 10/21/2024 14:43:44 Referral None recorded. Procedures None recorded. Surgeries None recorded. Imaging XR, kidney + ureter + bladder [address] [facility] ([address] [place], [address], 10/21/2024 15:33:29 XR, elbow, 3 or more view [address] [facility] [address] [place], [address], 10/21/2024 15:33:29 Medication Orders None recorded. Patient TargetsNo targets recorded. Patient InstructionsNo instructions recorded. Reason for Referral None Reported. Problems Name Problem SNOMED Code Status Onset Date Resolution Date Notes Provider Name and Address Organization Details Recorded Time Edema of lower extremit y 156470640 Active 2017 Not Available [facility] 10:11:50 Epigastr ic pain 46950808 Active 2017 Not Available [facility] 2 10:11:50 Fracture of fourth lumbar vertebra 199518838 Active 2018 Not Available [facility] 2 10:11:50 Rib pain 779998804 Active 2021 SAMI LUTZ [address] [place] [address], [address], [facility] 2 14:50:37 Vitamin D deficien 57429977 Active 2022 Ramirez Wilhelm, DO [address] [place] [address], [address], [facility] 3 12:31:54 Chronic cough 95673963 Active 2022 Ramirez Wilhelm DO [address] [place] [address], [address], [facility] 3 12:33:44 COVID-19 764739888 Active 2022 Ramirez Wilhelm, DO [address] [place] [address], [address], [facility] 3 13:01:56 Cough 44804003 Active 2022 Ramirez Wilhelm, DO [address] [place] [address], [address], [facility] 3 15:15:32 Hearing loss 76129352 Active 2022 Ramirez Wilhelm DO [address] [place] [address], [address], [facility] 3 21:20:45 Pain in throat 601817142 Active 2023 SAMI LUTZ [address] [place] [address], [address], [facility] 4 10:29:39 Acute pharyngi tis 171340201 Active 2023 SAMI LUTZ [address] [place] [address], [address], [facility] 4 10:29:58 Pain of breast 00160103 Active 2023 Ramirez Wilhelm, DO [address] [place] [address], [address], [facility] 4 23:00:54 Pain of right breast 9057673508 Active 2023 Ramirez Wilhelm DO [address] [place] [address], [address], [facility] 4 13:37:45 Sleep apnea 13093129 Active 2023 Ramirez Wilhelm DO [address] [place] [address], [address], [facility] 4 21:52:43 Acute urinary tract infectio n 178110475 Active 2023 SAMI LUTZ [address] [place] [address], [address], [facility] 4 12:31:24 Dysuria 63968933 Active 2024 SAMI LUTZ [address] [place] [address], [address], [facility] 5 14:41:17 Cystitis 00353151 Active 2024 SAMI LUTZ [address] [place] [address], [address], [facility] 5 14:45:36 Pain of left elbow joint 82571609464 321896 Active 2024 SAMI LUTZ [address] [place] [address], [address], [facility] 5 14:49:41 Essentia l hyperten thai 23136860 Active 2017 Not Available [facility] 2 10:11:50 Hypercho lesterol emia 36017472 Active 2017 Not Available [facility] 2 10:11:50 Polyp 270850913 Active 2017 Endometri al polyp Not Available [facility] 2 10:11:50 Cyst of ovary 50527531 Active 2017 Not Available [facility] 2 10:11:50 History of calculus of kidney 402951492 Active 2017 Not Available [facility] 2 10:11:50 Family history of malignan t neoplasm 807656512 Active 2017 cancer of the ovaries and breast cancer Not Available [facility] 2 10:11:50 Problem Notes None recorded. Medical Equipment None Reported. Allergies Allergen ID Allergen Name Allergen Category Reaction Reaction Severity Criticality Documentation Date Start Date Code Code System Note Provider Name and Address Organization Details Recorded Time 1492 Bactrim medicatio n Not available Not available Not available 12/19/2017 62249 9 RxNorm Susan álvarez [facility] 8 15:04:07 1493 erythromy kelli medicatio n Not available Not available Not available 12/19/2017 4053 RxNorm Susan álvarez [facility] 8 15:04:27 Medications Name Sig [...] No t Available Vitals Date Recorded Body height Body mass index (BMI) Body weight Systolic blood pressure Diastolic blood pressure Provider Name and Address Organization Details Last Updated DateTime 10/21/2024 167.64 cm 27.1 kg/m2 80545.52 g 124 mm[Hg] 80 mm[Hg] Becky Mcclendon [facility] 14:36:22 Social History Question Answer Notes LastModified by Organizat ion Details LastModified Time Tobacco Smoking Status Never Smoker Not Available [facility] 05/25/2020 03:36:23 What Was The Date Of [...] mcg/0.5mL dose or 50 mcg/0.25mL dose 07/27/2021 completed Nancy á[facility]varez [facility] 07/29/2021 10:12:54 COVID-19, mRNA, LNP-S, PF, 100 mcg/0.5mL dose or 50 mcg/0.25mL dose 08/06/2020 completed Laurita álvarez [facility] 11/19/2020 10:01:47 COVID-19, mRNA, LNP-S, PF, 100 mcg/0.5mL dose or 50 mcg/0.25mL dose 09/08/2020 completed Laurita álvarez [facility] 11/19/2020 10:01:59 Past Encounters Encounter ID Performer Location Encounter Start Date Encounter Closed Date Diagnosis/Indication Diagnosis SNOMED-CT Code Diagnosis ICD10 Code Diagnosis Note [id number] SAMI LUTZ [facility] [address] [facility],[place] [address] 10/21/2024 14:26:59 10/21/2024 15:33:29 Dysuria 89183625 R30.9 elevated leuksrecom mended KUB and send out urine Cystitis 24254690 N30.00 ? infection vs inflammati on Pain of le ft elbow joint 4577531224 5347211 M25.522 having pain for 4 to 5 mos Health Concerns Section Related Observation LastModified by Organization Detai ls LastModified Time None Recorded Concern Status LastModified by Organization Details LastModified Time None Recorded Payers Encounter Date Sequence Insurance Name Policy Number Policy Hawkins Covered Member ID Hawkins Member ID Guarantor Name 10/21/2024 1 [place]ARE [place]: [facility] [employer] Joi Madsen [id number] 2 Joi IsabelEllen 10/21/2024 2 [facility] (PPO) [id number] Joi hernandez [id number] Joi Grimm Notes Date Note Type Note Provider Name a nd Address Organization Details Recorded Time 10/21/2024 text/html c/o dysuria the patient reports that she has noticed ongoing issues with feeling of incomplete voidingthe patient reports that she has some pelvicthe patient reports frequency only leuks on urine recommended f/u with send out urine and KUB having left elbow pain x 4 moswhen she leans on it?bone spur or tendinitis SAMI LUTZ [address] [place] [address], [place], [address], [facility] 10/21/2024 14:59:09 OBGyn Episode No OBEpisode recorded.
--- OUTSIDE RECORDS SUMMARY | 2024-10-21 19:09 | XMS_ITS | Encounter Summary ---
Author Organization [facility] Address [address] [facility] [address] [place] [address] Phone Care Team Providers Care Machine Puller And Laster Name Role Phone Ramirez Wilhelm DO Unavailable Estefany Jackson DESKTOP SUPPORT MANAGER Unavailable [phone] Belen Olvera MD Unavailable [phone] Laurie Lopez DESKTOP SUPPORT MANAGER Unavailable [phone] Fide Atkinson NP Unavailable [phone] Summer Marrufo MD Unavailable [phone] Carlyle Ayon MD Unavailable Camron Richey MD Unavailable [phone] Laura Nicholas RDCS Unavailable [email or web address] Marci Contreras DESKTOP SUPPORT MANAGER Unavailable [phone] Ramirez Wilhelm DO Primary Care Provider +[phone] Ramirez Wilhelm DO Unavailable + Ramirez Wilhelm DO Unavailable + Ramirez Wilhelm DO Primary Care Provider + Encounter Details Date Type Department Care Team (Late st Contact Info) Description 03/22/2020 Procedure Pass [facility] - [address] [place] [address] Social History Tobacco Use Types Packs/Day Years Used Date Smoking Tobacco: Never Assessed Sex and Gender Information Value Date Recorded Sex Assigned at Not on file Gender Identity Not on file Sexual Orientation Not on file documented as of this encounter Plan of Treatment Upcoming Encounters Date Type Department Care Team (Late st Contact Info) Description 01/28/2025 1:45 PM EDT Office Visit [facility] [address] [place] [address] [address] [place] [address] Jimy Morales MD [address] [facility], [facility] [address] [place] [address] documented as of this encounter Visit Diagnoses Not on filedocumented in this encounter Additional Health Concerns Infection Onset Date Last Indicated Resolved Time CoV-Risk 02/28/2021 02/28/2021 03/10/2021 1:41 AM EDT documented as of this encounter Care Teams Machine Puller And Laster Relationship Specialty Start Date End Date Ramirez Wilhelm DO PCP - General 05/07/17 10/13/24 Ramirez Wilhelm DO [address] [facility] [place] [address] [place] [address] PCP - General Internal Medicine 10/14/24 Ramirez Wilhelm DO Historical LMR Provider 05/07/17 Estefany Jackson NP [address] [place] [address] [address] [place] [address] Historical LMR Provider 05/07/17 2 Belen Olvera MD [address] [facility], [address] [place] [address] Historical LMR Provider 05/07/17 Laurie Lopez NP [address] [place] [address] Historical LMR Provider 05/07/17 2 Fide Atkinson NP [address] [place] [address] [email or web address] Historical LMR Provider 05/07/17 2 Summer Marrufo MD [address] [facility], [address] [place] [address] Historical LMR Provider 05/07/17 Carlyle Ayon MD [address] [address] Historical LMR Provider 05/07/17 07/30/21 Camron Richey MD [address] [address] Historical LMR Provider 05/07/17 07/30/21 Laura Nicholas, [place] Historical LMR Provider 05/07/17 07/30/21 Marci Contreras NP [address] [place] [address] Historical LMR Provider 05/07/17 2 Ramirez Wilhelm DO [address] [place] [address] [place] [address] Insurance Assigned Provider 11/23/18 05/01/20 Ramirez Wilhelm DO [address] [place] [address] Insurance Assigned Provider 05/29/20 10/28/22 documented as of this encounter Additional Source Comments The information contained in this document represents components of the legal health record. It is not the complete legal health record.[facility]
--- OUTSIDE RECORDS SUMMARY | 2024-10-21 19:09 | XMS_ITS | Encounter Summary ---
Author Organization [facility] Address [address] [facility] [address] [place] [address] Phone Care Team Providers Care Nursing Informatics Analyst Name Role Phone Ramirez Wilhelm DO Unavailable Estefany Jackson RESIDENTIAL BUILDER Unavailable Belen Olvera MD Unavailable Laurie Lopez RESIDENTIAL BUILDER Unavailable Fide Atkinson NP Unavailable Summer Marrufo MD Unavailable Carlyle Ayon MD Unavailable Camron Richey MD Unavailable [phone] Laura Nicholas RDCS Unavailable [email or web address] Marci Contreras RESIDENTIAL BUILDER Unavailable [phone] Ramirez Wilhelm DO Primary Care Provider +[phone] Ramirez Wilhelm DO Unavailable Ramirez Wilhelm DO Unavailable + Ramirez Wilhelm DO Primary Care Provider + Encounter Details Date Type Department Care Team (Late st Contact Info) Description 03/22/2020 Ancillary Orders Virtual Department [address] [place] [address] Ramirez Wilhelm DO [address] [facility] [place] [address] [place] [address] Breast screening Social History Tobacco Use Types Packs/Day Years Used Date Smoking Tobacco: Never Assessed Sex and Gender Information Value Date Recorded Sex Assigned at Not on file Gender Identity Not on file Sexual Orientation Not on file documented as of this encounter Plan of Treatment Upcoming Encounters Date Type Department Care Team (Late st Contact Info) Description 01/28/2025 1:45 PM EDT Office Visit [facility] [address] [place] [address] [address] [place] [address] Jimy Morales MD [address] [facility], [address] [place] [address] [email or web address] documented as of this encounter Results * BI MAMMOGRAM SCREENING WITH TOMOSYNTHESIS WITH CAD (BILATERAL) (05/07/2020 8:55 AM EDT) Anatomical Region Laterality Modality Breast Left, Breast Right, Breast Bilateral Bila teral Mammography 05/07/2020 10:3 1 AM EDT Impressions 05/07/2020 10:36 AM EDT No findings suspicious for malignancy are identified. In the absence of a worrisome palpable abnormality, annual screening mammography is recommended. BI-RADS CATEGORY 1 - NEGATIVE DENSITY: ??The breast tissue is heterogeneously dense, which may obscure small masses Narrative 05/07/2020 10:36 AM EDT COMPARISON: 02/27/2014 through 11/07/2018 Bilateral 3-D tomosynthesis with 2-D reconstructions in the CC and MLO projection. ??Computer-aided detection system also utilized. No new mass, asymmetry, architectural distortion or suspicious calcifications have become apparent on either side. Ramirez Wilhelm DO IMG MG EXAMS documented in this encounter Visit Diagnoses Diagnosis Breast screening Breast screening, unspecified Breast screening Breast screening, unspecified documented in this encounter Additional Health Concerns Infection Onset Date Last Indicated Resolved Time CoV-Risk 02/28/2021 02/28/2021 03/10/2021 1:41 AM EDT documented as of this encounter Care Teams Nursing Informatics Analyst Relationship Specialty Start Date End Date Ramirez Wilhelm DO PCP - General 05/07/17 10/13/24 Ramirez Wilhelm DO [address] [employer] [place] [address] PCP - General Internal Medicine 10/14/24 Ramirez Wilhelm DO Historical LMR Provider 05/07/17 Estefany Jackson NP [address] [address] Historical LMR Provider 05/07/17 2 Belen Olvera MD [address] [address] [email or web address] Historical LMR Provider 05/07/17 Laurie Lopez RESIDENTIAL BUILDER [address] [place] [address] Historical LMR Provider 05/07/17 2 Fide Atkinson NP [address] [place] [address] [email or web address] Historical LMR Provider 05/07/17 2 Summer Marrufo MD [address] [facility], 2nd [place] [address] Historical LMR Provider 05/07/17 Carlyle Ayon MD [address] [place] [address] [address] [place] [address] Historical LMR Provider 05/07/17 07/30/21 Camron Richey MD [address] [place] [address] [address] [place] [address] Historical LMR Provider 05/07/17 07/30/21 Laura Nicholas, [facility] Historical LMR Provider 05/07/17 07/30/21 Marci Contreras NP [address] [place] [address] Historical LMR Provider 05/07/17 2 Ramirez Wilhelm DO [address] [place] [address] Insurance Assigned Provider 11/23/18 05/01/20 Ramirez Wilhelm DO [address] [place] [address] Insurance Assigned Provider 05/29/20 10/28/22 documented as of this encounter Additional Source Comments The information contained in this document represents components of the legal health record. It is not the complete legal health record.[facility]
--- OUTSIDE RECORDS SUMMARY | 2024-10-21 19:09 | XMS_ITS | Encounter Summary ---
Author Organization [facility] Address [address] [facility] [address] [place] [address] Phone Care Team Providers Care Data Processing Mechanic Name Role Phone Ramirez Wilhelm DO Unavailable Estefany Jackson HANDSTITCHING MACHINE ARMHOLE FELLER Unavailable [phone] Belen Olvera MD Unavailable [phone] Laurie Lopez HANDSTITCHING MACHINE ARMHOLE FELLER Unavailable [phone] Fide Atkinson NP Unavailable [phone] Summer Marrufo MD Unavailable [phone] Carlyle Ayon MD Unavailable Camron Richey MD Unavailable [phone] Laura Nicholas RDCS Unavailable [email or web address] Marci Contreras HANDSTITCHING MACHINE ARMHOLE FELLER Unavailable [phone] Ramirez Wilhelm DO Primary Care Provider +[phone] Ramirez Wilhelm DO Unavailable Ramirez Wilhelm DO Unavailable + Ramirez Wilhelm DO Primary Care Provider + Encounter Details Date Type Department Care Team (Late st Contact Info) Description 04/07/2020 Procedure Pass [facility], Ct Scan - [address] [address] Social History Tobacco Use Types Packs/Day Years Used Date Smoking Tobacco: Never Assessed Sex and Gender Information Value Date Recorded Sex Assigned at Not on file Gender Identity Not on file Sexual Orientation Not on file documented as of this encounter Plan of Treatment Upcoming Encounters Date Type Department Care Team (Late st Contact Info) Description 01/28/2025 1:45 PM EDT Office Visit [facility] [address] [place] [address] 301 [place] [address] Jimy Morales MD [address] [facility], [facility] 301 [place] [address] documented as of this encounter Visit Diagnoses Not on filedocumented in this encounter Additional Health Concerns Infection Onset Date Last Indicated Resolved Time CoV-Risk 02/28/2021 02/28/2021 03/10/2021 1:41 AM EDT documented as of this encounter Care Teams Data Processing Mechanic Relationship Specialty Start Date End Date Ramirez Wilhelm DO PCP - General 05/07/17 10/13/24 Ramirez Wilhelm DO 179 [facility] [place] [address] [place] [address] PCP - General Internal Medicine 10/14/24 Ramirez Wilhelm DO Historical LMR Provider 05/07/17 Estefany Jackson NP [address] [place] [address] 340 [place] [address] Historical LMR Provider 05/07/17 2 Belen Olvera MD [address] [facility], [address] [place] [address] Historical LMR Provider 05/07/17 Laurie Lopez NP [address] [place] [address] Historical LMR Provider 05/07/17 2 Fide Atkinson NP 21 [place] [address] [email or web address] Historical LMR Provider 05/07/17 2 Summer Marrufo MD [address] [facility], [address] [place] [address] Historical LMR Provider 05/07/17 Carlyle Ayon MD [address] [address] Historical LMR Provider 05/07/17 07/30/21 Camron Richey MD [address] [address] Historical LMR Provider 05/07/17 07/30/21 Laura Nicholas, [place] Historical LMR Provider 05/07/17 07/30/21 Marci Contreras NP [address] [place] [address] Historical LMR Provider 05/07/17 2 Ramirez Wilhelm DO [address] [place] [address] [place] [address] Insurance Assigned Provider 11/23/18 05/01/20 Ramirez Wilhelm DO [address] [place] [address] Insurance Assigned Provider 05/29/20 10/28/22 documented as of this encounter Additional Source Comments The information contained in this document represents components of the legal health record. It is not the complete legal health record.[facility]
--- OUTSIDE RECORDS SUMMARY | 2024-10-21 19:09 | XMS_ITS | Encounter Summary ---
Author Organization [facility] Address [address] [facility] [address] [place] [address] Phone Care Team Providers Care Panel Instrument Repairer Name Role Phone Choco Ramirez Le DO Unavailable Estefany Jackson PARACHUTE REPAIRER Unavailable Belen Olvera MD Unavailable Laurie Lopez PARACHUTE REPAIRER Unavailable Fide Atkinson NP Unavailable Summer Marrufo MD Unavailable Carlyle Ayon MD Unavailable Camron Richey MD Unavailable [phone] Laura Nicholas RDCS Unavailable [email or web address] Marci Contreras PARACHUTE REPAIRER Unavailable [phone] Ramirez Wilhelm DO Primary Care Provider +[phone] Ramirez Wilhelm DO Unavailable Ramirez Wilhelm DO Primary Care Provider +[phone] Encounter Details Date Type Department Care Team (Latest Contact Info) Description 06/15/2020 Transcribe Orders Virtual Department 30 [place] [address] Sheri Ray PA 6 [facility] [place] [address] [place] [address] Abdominal pain, unspecified abdominal location (Primary Dx) [...] Description 01/28/2025 1:45 PM EDT Office Visit [facility] [address] [place] [address] 301 [place] [address] Jimy Morales MD 22 [facility], [facility] 301 [place] [address] [email or web address] documented as of this encounter Results * US PELVIS TRANSABDOMINAL PLUS TRANSVAGINAL (07/06/2020 9:32 AM EST) Anatomical Region Laterality Modality Pelvis, Uterus/Adnexa Ultrasound 07/06/2020 10:0 5 AM EST Impressions 07/06/2020 10:09 AM EST Mildly thickened endometrium. This could be on the basis of hyperplasia but RETREAD SUPERVISOR follow-up recommended. Small cyst in the right adnexa. Narrative 07/06/2020 10:09 AM EST HISTORY: ??Cramping pain. Patient is postmenopausal. EXAM: ??Transabdominal and transvaginal pelvic ultrasounds. COMPARISON: CT pelvis 04/14/2020. FINDINGS: Uterus: ??Uterus is normal in size and echogenicity. The uterus is anteverted. It measures 7.3 cm x 4.0 cm x 2.0 cm. Endometrial stripe is mildly thickened measuring 6 mm in maximal diameter. Ovaries: ??The left ovary appears normal. It measures 2.0 cm x 1.6 cm x 1.5 cm. Normal blood flow demonstrated to the ovary. The right ovary is not clearly visualized. There is a 1.8 cm x 1.5 cm x 1.3 cm simple appearing cyst in the expected region of the right adnexa. Other: ??No evidence of free fluid. Procedure Note Azam Guzman MD - 07/06/2020 HISTORY: Cramping pain. Patient is postmenopausal. EXAM: Transabdominal and transvaginal pelvic ultrasounds. COMPARISON: CT pelvis 04/14/2020. FINDINGS: Uterus: Uterus is normal in size and echogenicity. The uterus isanteverted. It measures 7.3 cm x 4.0 cm x 2.0 cm. Endometrial stripe ismildly thickened measuring 6 mm in maximal diameter. Ovaries: The left ovary appears normal. It measures 2.0 cm x 1.6 cm x 1.5cm. Normal blood flow demonstrated to the ovary. The right ovary is notclearly visualized. There is a 1.8 cm x 1.5 cm x 1.3 cm simple appearingcyst in the expected region of the right adnexa. Other: No evidence of free fluid. IMPRESSION: Mildly thickened endometrium. This could be on the basis of hyperplasiabut RETREAD SUPERVISOR follow-up recommended. Small cyst in the right adnexa. Sheri GALLARDO IMG US PELVIS * US Abdomen Complete (07/06/2020 9:29 AM EST) Anatomical Region Laterality Modality Abdomen Ultrasound 07/06/2020 10:0 0 AM EST Impressions 07/06/2020 10:05 AM EST Borderline diameter common bile duct which can be correlated with any signs of obstruction. No evidence of cholelithiasis, cholecystitis or biliary ductal dilatation. No other significant abnormalities on abdominal ultrasound. Narrative 07/06/2020 10:05 AM EST HISTORY: ??Cramping pain. COMPARISON: CT pelvis 04/14/2020 FINDINGS: Biliary: The gallbladder appears normal. No pericholecystic fluid or sonographic Clemons's sign. Proximal common duct is borderline 6-7 mm in diameter. Liver: At least 3 sub-centimeter cysts are demonstrated within the liver, 2 in the left lobe and one in the right lobe at the dome. Liver otherwise appears normal. Normal blood flow demonstrated within the vein. Portal vein. Spleen: ??No abnormalities demonstrated. Pancreas: No abnormalities demonstrated. Kidneys: No abnormalities of the right kidney. 3 mm echogenic focus near the cortical medullary junction of the left kidney near the junction of the interpolar region and lower pole. Left kidney otherwise appears normal. Abdominal aorta/IVC: No abnormalities demonstrated. Procedure Note Azam Guzman MD - 07/06/2020 HISTORY: Cramping pain. COMPARISON: CT pelvis 04/14/2020 FINDINGS: Biliary: The gallbladder appears normal. No pericholecystic fluid orsonographic Clemons's sign. Proximal common duct is borderline 6-7 mm indiameter. Liver: At least 3 sub-centimeter cysts are demonstrated within the liver,2 in the left lobe and one in the right lobe at the dome. Liver otherwiseappears normal. Normal blood flow demonstrated within the vein. Portalvein. Spleen: No abnormalities demonstrated. Pancreas: No abnormalities demonstrated. Kidneys: No abnormalities of the right kidney. 3 mm echogenic focus nearthe cortical medullary junction of the left kidney near the junction ofthe interpolar region and lower pole. Left kidney otherwise appearsnormal. Abdominal aorta/IVC: No abnormalities demonstrated. IMPRESSION: Borderline diameter common bile duct which can be correlated with anysigns of obstruction. No evidence of cholelithiasis, cholecystitis orbiliary ductal dilatation. No other significant abnormalities on abdominalultrasound. Sheri RODRIGUEZ US ABDOMEN documented in this encounter Visit Diagnoses Diagnosis Abdominal pain, unspecified abdominal location- Primary Abdominal pain, unspecified abdominal location Abdominal pain, unspecified abdominal location documented in this encounter Additional Health Concerns Infection Onset Date Last Indicated Resolved Time CoV-Risk 02/28/2021 02/28/2021 03/10/2021 1:41 AM EDT documented as of this encounter Care Teams Panel Instrument Repairer Relationship Specialty Start Date End Date Ramirez Wilhelm DO [email or web address] PCP - General 05/07/17 10/13/24 Ramirez Wilhelm DO 179 [place] [address] PCP - General Internal Medicine 10/14/24 Ramirez Wilhelm DO Historical LMR Provider 05/07/17 Estefany Jackson NP [address] [place] [address] Historical LMR Provider 05/07/17 2 Belen Olvera MD [address] [place] [email or web address] Historical LMR Provider 05/07/17 Laurie Lopez NP [address] [place] [phone] Historical LMR Provider 05/07/17 2 Fide Atkinson NP [address] [place] [address] [email or web address] Historical LMR Provider 05/07/17 2 Summer Marrufo MD 15 [facility], 2nd [place] [address] Historical LMR Provider 05/07/17 Carlyle Ayon MD [address] [place] [address] Historical LMR Provider 05/07/17 07/30/21 Camron Richey MD [address] [place], [place] [address], [place] [address] Historical LMR Provider 05/07/17 07/30/21 Laura Nicholas RDCS Historical LMR Provider 05/07/17 07/30/21 Marci Contreras NP [address] [place] [address] Historical LMR Provider 05/07/17 2 Ramirez Wilhelm DO [address] [place] [address] [place] [address] [email or web address] Insurance Assigned Provider 05/29/20 10/28/22 documented as of this encounter Additional Source Comments The information contained in this document represents components of the legal health record. It is not the complete legal health record.[facility]
--- OUTSIDE RECORDS SUMMARY | 2024-10-21 19:09 | XMS_ITS | Encounter Summary ---
Author Organization [facility] Address [address] [facility] [address] [place] [address] Phone Care Team Providers Care Medical Insurance Collector Name Role Phone Ramirez Wilhelm DO Unavailable Estefany Jackson FREELANCE COPYWRITER Unavailable [phone] Belen Olvera MD Unavailable [phone] Laurie Lopez FREELANCE COPYWRITER Unavailable [phone] Fide Atkinson NP Unavailable [phone] Summer Marrufo MD Unavailable [phone] Carlyle Ayon MD Unavailable Camron Richey MD Unavailable [phone] Laura Nicholas RDCS Unavailable [email or web address] Marci Contreras FREELANCE COPYWRITER Unavailable [phone] Ramirez Wilhelm DO Primary Care Provider [phone] Ramirez Wilhelm DO Unavailable Ramirez Wilhelm DO Primary Care Provider +[phone] Encounter Details Date Type Department Care Team (Late st Contact Info) Description 05/13/2021 Procedure Pass [facility], [address] [place] [address] Social History Tobacco Use Types Packs/Day Years [...] Upcoming Encounters Date Type Department Care Team ([facility] st Contact Info) Description 01/28/2025 1:45 PM EDT Office Visit [facility] [address] [place] [address] 301 [place] [address] Jimy Morales MD [address] [place] [address] documented as of this encounter Visit Diagnoses Not on filedocumented in this encounter Care Teams Medical Insurance Collector Relationship Specialty Start Date End Date Ramirez Wilhelm DO PCP - General 05/07/17 10/13/24 Ramirez Wilhelm DO [address] [place] [address] [place] [address] PCP - General Internal Medicine 10/14/24 Ramirez Wilhelm DO Historical LMR Provider 05/07/17 Estefany Jackson NP [address] [place] [address] Historical LMR Provider 05/07/17 2 Belen Olvera MD [address] [place] [address] 102 [place] [address] [email or web address] Historical LMR Provider 05/07/17 Laurie Lopez FREELANCE COPYWRITER [address] [place] [address] Historical LMR Provider 05/07/17 2 Fide Atkinson NP 21 [place] [address] [email or web address] Historical LMR Provider 05/07/17 2 Summer Marrufo MD 15 [facility], 2nd [place] [address] Historical LMR Provider 05/07/17 Carlyle Ayon MD [address] [place] [address] Historical LMR Provider 05/07/17 07/30/21 Camron Richey MD 22 [facility] 102 [place] [address] Historical LMR Provider 05/07/17 07/30/21 Laura Nicholas, [place] Historical LMR Provider 05/07/17 07/30/21 Marci Contreras NP [address] [place] [address] Historical LMR Provider 05/07/17 2 Ramirez Wilhelm DO [address] [place] [address] [place] [address] Insurance Assigned Provider 05/29/20 10/28/22 documented as of this encounter Additional Source Comments The information contained in this document represents components of the legal health record. It is not the complete legal health record.[facility]
--- OUTSIDE RECORDS SUMMARY | 2024-10-21 19:09 | XMS_ITS | Encounter Summary ---
Author Organization [facility] Address [address] [facility] [address] [facility] [address] [place] [address] Phone Care Team Providers Care Scheduling Analyst Name Role Phone HeatherRamirez schmid Unavailable Belen Olvera MD Unavailable [phone] Ramirez Wilhelm DO Primary Care Provider [phone] Ramirez Wilhelm DO Primary Care Provider [phone] Encounter Details Date Type Department Care Team (Late st Contact Info) Description 03/27/2023 Procedure Pass [facility] - [address] [place] [address] Social History Tobacco Use Types Packs/Day Years Used Date Smoking Tobacco: Never Smokeless Tobacco: Never Alcohol Use Standard Drinks/Week Comments Yes 2 (1 standard drink = 0.6 oz pur e alcohol) weekly Education Answer Date Recorded Are you interested in more education? Not on guera e 11/17/2022 Are you concerned about learning? Not on file 11/17/2022 No 11/17/2022 No 11/17/2022 Digital Access Answer Date Recorded No 12/13/2022 No 12/13/2022 Reliable internet access at home? Not on file 12/13/2022 Device with a working camera? Not on file Sex and Gender Information Value Date Recorded Sex Assigned at Not on file Gender Identity Not on file Sexual Orientation Not on file documented as of this encounter Plan of Treatment Upcoming Encounters Date Type Department Care Team (Late st Contact Info) Description 01/28/2025 1:45 PM EDT Office Visit [facility] [address] [facility] 301 [place] [address] Jimy Morales MD 22 [facility], [facility] 301 [place] [address] documented as of this encounter Visit Diagnoses Not on filedocumented in this encounter Care Teams Scheduling Analyst Relationship Specialty Start Date End Date Ramirez Wilhelm DO PCP - General 05/07/17 10/13/24 Ramirez Wilhelm DO [address] [place] [address] [place] [address] PCP - General Internal Medicine 10/14/24 Ramirez Wilhelm DO Historical LMR Provider 05/07/17 Belen Olvera MD [address] [place] [address], [address] [place] [address] Historical LMR Provider 05/07/17 documented as of this encounter Additional Source Comments The information contained in this document represents components of the legal health record. It is not the complete legal health record.[facility]
--- OUTSIDE RECORDS SUMMARY | 2024-10-21 19:09 | XMS_ITS | Encounter Summary ---
Author Organization [facility] Address [address] [facility] [address] [place] [address] Phone Care Team Providers Care Fisher Pound Net Or Trap Name Role Phone Ramirez Wilhelm DO Unavailable Estefany Jackson GATE WATCH Unavailable [phone] Belen Olvera MD Unavailable Laruie Lopez GATE WATCH Unavailable Fide Atkinson GATE WATCH Unavailable Summer Marrufo MD Unavailable Carlyle Ayon MD Unavailable Camron Richey MD Unavailable [phone] Laura Nicholas RDCS Unavailable [email or web address] Marci Contreras GATE WATCH Unavailable [phone] Ramirez Wilhelm DO Primary Care Provider [phone] Ramirez Wilhelm DO Unavailable Ramirez Wilhelm DO Primary Care Provider [phone] Encounter Details Date Type Department Care Team (Late st Contact Info) Description 04/01/2021 Transcribe Orders Virtual Department [address] [place] [address] Ramirez Wilhelm DO 179 [place] [address] Social History Tobacco Use Types Packs/Day Years [...] Description 01/28/2025 1:45 PM EDT Office Visit [facility] [address] [place] [address] 301 [place] [address] Jimy Morales MD 22 [facility] 301 [place] [address] documented as of this encounter Visit Diagnoses Not on filedocumented in this encounter Care Teams Fisher Pound Net Or Trap Relationship Specialty Start Date End Date Ramirez Wilhelm DO PCP - General 05/07/17 10/13/24 Ramirez Wilhelm DO 179 [place] [address] PCP - General Internal Medicine 10/14/24 Ramirez Wilhelm DO Historical LMR Provider 05/07/17 Estefany Jackson NP [address] [place] [address] 340 [place] [address] Historical LMR Provider 05/07/17 2 Belen Olvera MD [address] [place] [address] 102 [place] [address] [email or web address] Historical LMR Provider 05/07/17 Laurie Lopez NP [address] [place] [address] Historical LMR Provider 05/07/17 2 Fide Atkinson NP 21 [place] [address] [email or web address] Historical LMR Provider 05/07/17 2 Summer Marrufo MD 15 [facility], 2nd [place] [address] Historical LMR Provider 05/07/17 Carlyle Ayon MD [address] [place] [address] Historical LMR Provider 05/07/17 07/30/21 Camron Richey MD [address] [address] Historical LMR Provider 05/07/17 07/30/21 Laura Nicholas, [place] Historical LMR Provider 05/07/17 07/30/21 Marci Contreras NP [address] [place] [address] Historical LMR Provider 05/07/17 2 Ramirez Wilhelm DO [address] [place] [address] [place] [address] [email or web address] Insurance Assigned Provider 05/29/20 10/28/22 documented as of this encounter Additional Source Comments The information contained in this document represents components of the legal health record. It is not the complete legal health record.[facility]
--- OUTSIDE RECORDS SUMMARY | 2024-10-21 19:10 | XMS_ITS | Encounter Summary ---
Author Organization [facility] Address [address] [facility] [address] [place] [address] Phone Care Team Providers Care Business Education Teacher Name Role Phone Ramirez Wilhelm DO Unavailable Estefany Jackson SOLAR ENERGY SYSTEMS ENGINEER Unavailable [phone] Belen Olvera MD Unavailable [phone] Laurie Lopez SOLAR ENERGY SYSTEMS ENGINEER Unavailable [phone] Fide Atkinson NP Unavailable [phone] Summer Marrufo MD Unavailable [phone] Carlyle Ayon MD Unavailable Camron Richey MD Unavailable [phone] Laura Nicholas RDCS Unavailable [email or web address] Marci Contreras SOLAR ENERGY SYSTEMS ENGINEER Unavailable [phone] Ramirez Wilhelm DO Primary Care Provider [phone] Ramirez Wilhelm DO Unavailable Ramirez Wilhelm DO Primary Care Provider +[phone] Encounter Details Date Type Department Care Team (Late st Contact Info) Description 11/01/2020 Procedure Pass [facility] 30 [place], [place] [id number] Social History Tobacco Use Types Packs/Day Years [...] Upcoming Encounters Date Type Department Care Team ([facility] st Contact Info) Description 01/28/2025 1:45 PM EDT Office Visit [facility] [address] [place] [address] 301 [place] [address] Jimy Morales MD 22 [facility] 301 [place] [address] documented as of this encounter Visit Diagnoses Not on filedocumented in this encounter Additional Health Concerns Infection Onset Date Last Indicated Resolved Time CoV-Risk 02/28/2021 02/28/2021 03/10/2021 1:41 AM EDT documented as of this encounter Care Teams Business Education Teacher Relationship Specialty Start Date End Date Ramirez Wilhelm DO PCP - General 05/07/17 10/13/24 Ramirez Wilhelm DO 179 [facility] [place] [address] PCP - General Internal Medicine 10/14/24 Ramirez Wilhelm DO Historical LMR Provider 05/07/17 Estefany Jackson NP [address] [place] [address] Historical LMR Provider 05/07/17 2 Belen Olvera MD 22 [facility] 102 [place] [address] Historical LMR Provider 05/07/17 Laurie Lopez NP [address] [place] [address] Historical LMR Provider 05/07/17 2 Fide Atkinson NP 21 [place] [address] [email or web address] Historical LMR Provider 05/07/17 2 Summer Marrufo MD 15 [facility] [address] Historical LMR Provider 05/07/17 Carlyle Ayon MD 40 [facility] 202 [place] [address] Historical LMR Provider 05/07/17 07/30/21 Camron Richey MD 22 [facility] 102 [place] [address] Historical LMR Provider 05/07/17 07/30/21 Laura Nicholas, [place] Historical LMR Provider 05/07/17 07/30/21 Marci Contreras NP [address] [place] [address] Historical LMR Provider 05/07/17 2 Ramirez Wilhelm DO 179 [facility] [place] [address] ([email or web address]) [email or web address] Insurance Assigned Provider 05/29/20 10/28/22 documented as of this encounter Additional Source Comments The information contained in this document represents components of the legal health record. It is not the complete legal health record.[facility]
--- OUTSIDE RECORDS SUMMARY | 2024-10-21 19:10 | XMS_ITS | Data Portability ---
Author Organization [place] [facility], , [facility] Address [address] [place] [address] Assessment Encounter Date Assessment Date Assessment LastModified by Organization Details LastModified Time 05/18/2015 05/18/2015 Pt. will try weaning a little sore so not to increase ankle pain. [email or web address] Not available 05/18/2015 15:19:35 05/21/2015 05/21/2015 Pt. did well in treatment and will follow up next week. slooze Not available 05/23/2015 19:42:35 05/28/2015 05/28/2015 Pt. tolerated treatment well and will follow up next week. slooze Not available 05/28/2015 08:59:42 Plan of Treatment Reminders Order Date Submit Date Provider Last Modified By Organization Details Last Modified Time Details Appointments None record ed. Lab None record ed. Referral None record ed. Procedures None record ed. Surgeries None record ed. Imaging None record ed. Medication Orders None record ed. Patient TargetsNo targets recorded. Patient InstructionsNo instructions recorded. Reason for Referral None Reported. Results Created Date Observation Date Name Description Value Unit Range Abnormal Flag Note LastModifiedBy Organization Detail LastModifiedTime 04/02/2004/03/2023 CBC WBC 9.29 K/? ? ?L 3.98-1 0.04 Not Available [address], [address], 04/03/2023 10:01:20 04/02/20 23 04/03/2023 CBC RBC 5.01 M/? ? ?L 3.93-5 .22 Not Available [address], [address], 04/03/2023 10:01:20 04/02/20 23 04/03/2023 CBC HGB 14.3 g/dL 11.2-1 5.7 Not Available [address], [address], 04/03/2023 10:01:20 04/02/20 23 04/03/2023 CBC HCT 46.7 % 34.1-4 4.9 high Not Available [address], [address], 04/03/2023 10:01:20 04/02/20 23 04/03/2023 CBC MCV 93.2 fL 79.4-9 4.8 Not Available [address], [address], 04/03/2023 10:01:20 04/02/20 23 04/03/2023 CBC MCH 28.5 pg 25.6-3 2.2 Not Available [address], [address], 04/03/2023 10:01:20 04/02/20 23 04/03/2023 CBC MCHC 30.6 g/dL 32.2-3 5.5 low Not Available [address], [address], 04/03/2023 10:01:20 04/02/20 23 04/03/2023 CBC plt 260 K/? ? ?L 182-36 9 Not Available [address], [address], 04/03/2023 10:01:20 04/02/20 23 04/03/2023 CBC MPV 10.9 fL 9.4-12 .3 Not Available [address], [address], 04/03/2023 10:01:20 04/02/20 23 04/03/2023 CBC neut% 60.5 % 34.0-7 1.1 Not Available [address], [address], 04/03/2023 10:01:20 04/02/20 23 04/03/2023 CBC neut# 5.63 1.56-6 .13 Not Available [address], [address], 04/03/2023 10:01:20 04/02/20 23 04/03/2023 CBC lymph % 27.8 % 19.3-5 1.7 Not Available [address], [address], 04/03/2023 10:01:20 04/02/20 23 04/03/2023 CBC lymph # 2.58 K/? ? ?L 1.18-3 .74 Not Available [address], [address], 04/03/2023 10:01:20 04/02/20 23 04/03/2023 CBC mono% 8.3 % 4.7-12 .5 Not Available [address], [address], 04/03/2023 10:01:20 04/02/20 23 04/03/2023 CBC mono# 0.77 0.24-0 .56 high Not Available [address], [address], 04/03/2023 10:01:20 04/02/20 23 04/03/2023 CBC eo% 2.3 % 0.7-5. 8 Not Available [address], [address], 04/03/2023 10:01:20 04/02/20 23 04/03/2023 CBC eo# 0.21 0.04-0 .36 Not Available [address], [address], 04/03/2023 10:01:20 04/02/20 23 04/03/2023 CBC baso% 0.8 % 0.1-1. 2 Not Available [address], [address], 04/03/2023 10:01:20 04/02/20 23 04/03/2023 CBC baso# 0.07 0.00-0 .08 Not Available [address], [address], 04/03/2023 10:01:20 04/02/2004/03/2023 CBC RDW-CV 13.3 % 11.7-1 4.4 Not Available [address], [address], 04/03/2023 10:01:20 04/02/2004/03/2023 CBC Ig% 0.300 % 0.000- 1.500 Ig % >0.5 Indic ates possi ble Left Shift Not Available [address], [address], 04/03/2023 10:01:20 04/02/2004/03/2023 CBC Ig# 0.030 0.000- 0.093 Not Available [address], [address], 04/03/2023 10:01:20 04/02/2004/03/2023 CBC NRBC% 0.0 % 0.0-0. 2 Not Available [address], [address], 04/03/2023 10:01:20 04/02/2004/03/2023 CBC NRBC# 0.000 0.000- 0.012 Not Available [address], [address], 04/03/2023 10:01:20 04/02/2004/03/2023 COMP. METAB OLIC PANEL glucose 88 mg/dL 70-100 Not Available [address], [address], 04/03/2023 14:56:22 04/02/20 23 04/03/2023 COMP. METAB OLIC PANEL BUN 10 mg/dL 7-18 Not Available [address], [address], 04/03/2023 14:56:22 04/02/20 23 04/03/2023 COMP. METAB OLIC PANEL creatinine 0.9 mg/dL 0.8-1. 3 Not Available [address], [address], 04/03/2023 14:56:22 04/02/20 23 04/03/2023 COMP. METAB OLIC PANEL B/C 11.1 ratio Not Available [address], [address], 04/03/2023 14:56:22 04/02/20 23 04/03/2023 COMP. METAB OLIC PANEL GFR >=60ML /MIN mL/mi n normal >=60m L/min - Brigida l or midly reduc ed <60mL /min- Decre ased kidne y funct ion <15mL /min - Kidne y failu re [facility] calcu lates estim ated Glome rular Filtr ation Rate (eGFR ) using the Chron ic Kidne y Disea se Epide miolo gy Colla borat ion (CKD- EPI) Equat ion (Rocío r et. al 2020) as recom miladys d by the Natio nal Kidne y Found ation . eGFR is based on age, serum creat inine , and sex. CKD-E PI does not calcu late eGFR by race, does not apply to child eloise (age <18 years ), and shoul d not be used in pregn neel. Not Available [address], [address], 04/03/2023 14:56:22 04/02/20 23 04/03/2023 COMP. METAB OLIC PANEL sodium 141 mmol/ L 136-14 5 Not Available [address], [address], 04/03/2023 14:56:22 04/02/20 23 04/03/2023 COMP. METAB OLIC PANEL potassium 4.1 mmol/ L 3.5-5. 1 Not Available [address], [address], 04/03/2023 14:56:22 04/02/20 23 04/03/2023 COMP. METAB OLIC PANEL chloride 102 mmol/ L 96-107 Not Available [address], [address], 04/03/2023 14:56:22 04/02/20 23 04/03/2023 COMP. METAB OLIC PANEL anion gap 12.8 5.0-15 .0 Not Available [address], [address], 04/03/2023 14:56:22 04/02/20 23 04/03/2023 COMP. METAB OLIC PANEL CO2 26 mmol/ L 21-32 Not Available [address], [address], 04/03/2023 14:56:22 04/02/20 23 04/03/2023 COMP. METAB OLIC PANEL calcium 9.6 mg/dL 8.5-10 .3 Not Available [address], [address], 04/03/2023 14:56:22 04/02/20 23 04/03/2023 COMP. METAB OLIC PANEL total protein 7.6 g/dL 6.4-8. 2 Not Available [address], [address], 04/03/2023 14:56:22 04/02/2004/03/2023 COMP. METAB OLIC PANEL albumin 4.1 g/dL 3.4-5. 0 Not Available [address], [address], 04/03/2023 14:56:22 04/02/20 23 04/03/2023 COMP. METAB OLIC PANEL globulin 3.5 g/dL Not Available [address], [address], 04/03/2023 14:56:22 04/02/20 23 04/03/2023 COMP. METAB OLIC PANEL A/G 1.2 ratio 0.8-2. 0 Not Available [address], [address], 04/03/2023 14:56:22 04/02/20 23 04/03/2023 COMP. METAB OLIC PANEL total bilirubin 0.60 mg/dL 0.00-1 .00 Not Available [address], [address], 04/03/2023 14:56:22 04/02/20 23 04/03/2023 COMP. METAB OLIC PANEL AST 19 U/L 0-37 Not Available [address], [address], 04/03/2023 14:56:22 04/02/20 23 04/03/2023 COMP. METAB OLIC PANEL ALT 30 U/L 6-63 Not Available [address], [address], 04/03/2023 14:56:22 04/02/20 23 04/03/2023 COMP. METAB OLIC PANEL alk. phos. 68 U/L 50-136 Not Available [address], [address], 04/03/2023 14:56:22 04/02/20 23 04/03/2023 LIPID PANEL cholesterol 254 mg/dL <200 mg/dl Poppy able 200-2 39 mg/dl Borde rline High >240 mg/dl High Not Available [address], [address], 04/03/2023 14:56:23 04/02/20 23 04/03/2023 LIPID PANEL triglyceride s 227 mg/dL <150 mg/dL Brigida l 150-1 99 mg/dL Borde rline High 200-4 99 mg/dL High >500 mg/dL Very High Not Available [address], [address], 04/03/2023 14:56:23 04/02/2004/03/2023 LIPID PANEL direct HDL 61 mg/dL <40 mg/dl - Major Risk for CHD >60 mg/dl - Negat aleksandr Risk for CHD Not Available [address], [address], 04/03/2023 14:56:23 04/02/2004/03/2023 LDL - CALCU LATED LDL - calculated 147.6 RISK CATEG ORY LDL GOAL _ CHD or CHD Risk Equiv alent s <100 mg/dl (10-y ear risk >20%) 2+ Risk Facto rs <130 mg/dl (10-y ear risk <= 20%) 0-1 Risk Facto r? <160 mg/dl ? Almos t all peopl e with 0-1 risk facto r have a 10 year risk <10%, thus 10 year risk asses ment in peopl e with 0-1 risk facto r is not neces dia. Not Available [address], [address], 04/03/2023 14:56:24 04/02/2004/04/2023 VITAM IN D 25-HY DROXY TOTAL vitamin D 25-hydroxy EIA 43.6 NG/mL 20.0-9 9.9 Thera py is based on measu remen t of total 25-OH D, with level s less than 20 ng/mL indic ative of Vitam in D defic iency . Level s betwe en 20ng/ mL and 30 ng/mL sugge st insuf ficie ncy. Optim al Level s are great er than 30 ng/mL . Not Available [address], [address], 04/04/2023 12:33:22 Result Notes None recorded. Problems Name Problem SNOMED Code Status Onset Date Resolution Date Notes Provider Name and Address Organization Details Recorded Time Blood chemistry outside reference range 971225018 Completed 200806/11/2013 Not Available [facility] 3 02:03:30 Amenorrhea 92576869 Active 2008 Not Available [facility] 3 03:15:02 Dysmenorrh ea 951280425 Completed 200806/11/2013 Not Available [facility] 3 02:03:02 Malaise and fatigue 710713098 Completed 200806/11/2013 Not Available [facility] 3 02:00:21 Problem Notes None recorded. Procedures Surgical History Date Name Laterality Status Provider Name and Address Organization Details Recorded Time 1 Richie - EGD completed Jorge Quiroz MD [address] [place] [address], [phone], [facility] 12/24/2020 13:44:52 6 Jillian - Colonoscopy completed Butch Walsh [address] [place] [address], [phone], [facility] 03/31/2016 13:27:13 Imaging Results None recorded. Procedure Notes None recorded. Medical Equipment None Reported. Allergies Allergen ID Allergen Name Allergen Category Reaction Reaction Severity Criticality Documentation Date Start Date Code Code System Note Provider Name and Address Organization Details Recorded Time [id number] erythromy kelli medicatio n Not available Not available Not available 12/23/2020 4053 RxNorm Gregorio Overton RN null, [facility] 15:14:52 713959 Bactrim medicatio n rash Not available Not available 12/23/2020 93412 9 RxDanial Overton RN [facility], [facility] 15:15:08 Medications Name Sig Start Date Stop Date Status Note LastModified by Organization Details LastModified Time aspirin 81 mg chewable tablet Chew 1 tablet every day by oral route. active Not Available Not Available No t Available Lipitor active Not Available Not Avail able Not Available lisinopril active Not Available Not Av ailable Not Available metoprolol succinate active Not Available Not Available No t Available escitalopram oxalate active Not Available Not Available Not Available Vitals None Recorded Social History None recorded. Functional Status None recorded. Mental Status None recorded. Family History Nothing Reported. Medical History No medical history recorded. Gynecological HistoryNo gynecological history recorded. Obstetrics History GPAL:G 0 P 0 0 0 0 Past Encounters Encounter ID Performer Location Encounter Start Date Encounter Closed Date Diagnosis/Indication Diagnosis SNOMED-CT Code Diagnosis ICD10 Code Diagnosis Note [id number] LAB - [address] [address] 10/02/2008 11:37:58 10/02/2008 11:38:04 [id number] [facility], [address] [address] 04/28/2015 08:53:50 04/28/2015 14:19:45 Ankle pain 995950694 M25.144 [id number] [facility], [address] [address] 05/10/2015 14:47:32 05/11/2015 11:26:42 Ankle pain 895850172 M25.535 [id number] [facility], [address] [address] 05/13/2015 14:57:15 05/13/2015 16:53:48 Ankle pain 037120325 M25.514 [id number] [facility], [address] [address] 05/18/2015 14:58:38 05/18/2015 15:59:09 Ankle pain 053699322 M25.273 [id number] Joi Stephenson, PT Physical Therapy, [address] [address] 05/21/2015 09:17:28 05/21/2015 12:22:52 Ankle pain 045562736 M25.147 [id number] [facility], [address] [address] 05/28/2015 08:18:00 05/28/2015 11:26:41 Ankle pain 871429178 M25.248 [id number] Butch Walsh [facility], [address] [place] [address] 03/31/2016 11:56:13 03/31/2016 14:42:54 [id number] Alexa Park RN [facility], [address] [address] 12/24/2020 12:34:49 12/24/2020 15:08:55 Health Concerns Section Related Observation LastModified by Organization Detai ls LastModified Time None Recorded Concern Status LastModified by Organization Details LastModified Time None Recorded Advance Directives Directive None Recorded Payers Encounter Date Sequence Insurance Name Policy Number Policy Hawkins Covered Member ID Hawkins Member ID Guarantor Name 05/18/2015 1 [place] [id number] Joi Dawley [id number] Joi Dawley 05/21/2015 1 [place] [id number] Joi Dawley [id number] Joi Dawley 05/28/2015 1 [place] [id number] Joi Dawley [id number] Joi Dawley 03/31/2016 1 [place] [id number] Joi Dawley [id number] Joi Dawley 12/24/2020 1 [place] [id number] Joi Dawley [id number] Joi Dawley OBGyn Episode No OBEpisode recorded.
--- OUTSIDE RECORDS SUMMARY | 2024-10-21 19:10 | XMS_ITS | Encounter Summary ---
Author Organization [facility] Address [address] [facility] [address] [place] [address] Phone Care Team Providers Care Adjunct Trainer Name Role Phone Ramirez Wilhelm DO Unavailable Estefany Jackson SUPERVISOR RIDES Unavailable [phone] Belen Olvera MD Unavailable [phone] Laurie Lopez SUPERVISOR RIDES Unavailable Fide Atkinson NP Unavailable Summer Marrufo MD Unavailable Carlyle Ayon MD Unavailable Camron Richey MD Unavailable [phone] Laura Nicholas RDCS Unavailable [email or web address] Marci Contreras SUPERVISOR RIDES Unavailable [phone] Ramirez Wilhelm DO Primary Care Provider [phone] Ramirez Wilhelm DO Unavailable Ramirez Wilhelm DO Primary Care Provider + Reason for Referral * Outpatient Procedure - Closed Specialty Diagnoses / Procedures Referred By Ham t Referred To Contact Diagnoses Palpitations Procedures Adult Echo TTE Sheri Ray PA [address] [facility] [place] [address] [place] [address] Referral ID Status Reason Start Date Expiration Date Visits Re quested Visits Authorized Closed 11/01/2020 11/01/2021 1 1 Encounter Details Date Type Department Care Team (Latest Contact Info) Description 11/01/2020 Transcribe Orders Virtual Department [address] [place] [address] Sheri Ray PA [address] [facility] [place] [address] [place] [address] Palpitations (Primary Dx) Social History Tobacco Use Types [...] Description 01/28/2025 1:45 PM EDT Office Visit [facility] [address] [place] [address] Jimy Morales MD [address] [place] [address] [email or web address] documented as of this encounter Results * TTE COMPREHENSIVE (12/02/2020 9:52 AM EDT) Body Surface Area 1.9 m2 Height 166 cm Weight 83 kg Systolic BP 130 mmHg Diastolic BP 80 mmHg Left Atrium Dimension Anterior-Posterior 27 15 - 40 mm Aortic Valve Peak Velocity 191.0 cm/s Aortic Valve Peak Gradient 15 mmHg Aortic Valve Mean Gradient 6 mmHg Aortic Valve Time Velocity Integral 395 mm Aortic Sinus Diameter 31 mm Ascending Aorta Diameter 28 mm Inferior Vena Cava Diameter 12 0.0 - 21 mm Interventricular Septum Thickness 12 mm Left Ventricle Internal Diameter End Diastole 41 37 - 52 mm Left Ventricle Internal Diameter End Systole 27 22 - 35 mm Left Ventricular Outflow Tract Diameter 17.0 mm LVOT VTI REST 243 mm Left Ventricular Outflow Tract Velocity 1.2 m/s Left Ventricular Outflow Tract Gradient at Rest 6 mmHg Left Ventricular Posterior Wall Thickness 10 mm Ejection Fraction 64 50 - 75 Percent Mitral Valve A Wave Speed 79.3 cm/s Mitral Valve E Wave Speed 83.1 cm/s Right Ventricle Basal Diameter 28.7 25 - 41 mm Tricuspid Valve Peak Velocity 2.1 m/s Raw LV EF% 57 % Left Atrial Volume 40 mL Left Atrial Volume Index 21.05 mL/m2 Right Ventricle Peak Systolic Pressure 21 mmHg Right Ventricle TAPSE 14.0 mm Right Atrium Pressure Estimated 3 mmHg Right Ventricle to Right Atrium Pressure Gradient 18 mmHg Right Ventricle Pulse Doppler S Wave 10.7 cm/s Aortic Valve Sinus Index 1 16 19 - 27 mm Ascending Aorta Diameter 15 mm Aortic Sinus Index 16 mm Ascending Aorta Index 15 mm Anatomical Region Laterality Modality Heart Ultrasound Narrative 12/02/2020 10:11 AM EDT Image quality for the study was limited. ??The patient was imaged during normal sinus rhythm the left ventricular ejection fraction 65% with no regional wall motion abnormalities. ??There is no evidence of aortic valve disease. ??The PA pressure is normal there is trace mitral regurgitation there is no evidence of pericardial effusion there is no prior echo available for comparison. Left Ventricle The left ventricular cavity size and wall thickness are normal. Left ventricular systolic function is normal. There are no segmental left ventricular wall motion abnormalities noted. The estimated ejection fraction is 64% (Normal 50-75%). The left ventricular ejection fraction was measured by the single dimension method. Left ventricular diastolic function appears within normal limits for age. There is no evidence of left ventricular thrombus. Right Ventricle The right ventricular size is normal. The right ventricular systolic function is normal. Left Atrium The left atrium is normal in size. The left atrial anterior-posterior dimension measures 27 mm (normal 15-40 mm). The LA volume is 40 mL. The LA volume index is 21.05 mL/m2 (normal indexed value is 16-34 mL/m2). The pulmonary venous flow profiles are normal. Right Atrium The right atrium is normal in size. The IVC is normal in size (2.1cm or less). The IVC measures 12 mm (normal <=21 mm). The IVC demonstrates normal collapse with inspiration which is consistent with normal RA pressure. Mitral Valve The mitral valve appears normal. The E/A ratio is 1.0. The Med E' Nazario is 6.4 cm/s and the Lat E' Nazario is 7 cm/s. The E/E' AVG is 12.4. There is no evidence of mitral stenosis. There is trace mitral regurgitation detected by spectral and color Doppler. Tricuspid Valve The tricuspid valve appears normal. There is no evidence of tricuspid stenosis. There is evidence of trace to mild tricuspid regurgitation by color and spectral Doppler. Normal pulmonary pressure. The RV systolic pressure was estimated from the peak TV regurgitant velocity. The estimated RV systolic pressure is 21 mmHg assuming a right atrial pressure of 3 mmHg. The calculated peak RV-RA pressure gradient is 18 mmHg. Aortic Valve The aortic valve appears normal. The aortic valve is tricuspid. There is no evidence of valvular aortic stenosis. The peak aortic valve gradient is 15 mmHg. The mean aortic gradient is 6 mmHg. There is evidence of mild to moderate aortic regurgitation by color and spectral Doppler. The visualized portions of the thoracic aorta appear normal. Pulmonic Valve Pulmonary valve was not well visualized. The pulmonary valve appears normal. There is no evidence of pulmonic stenosis. There is evidence of trace pulmonary regurgitation by color and spectral Doppler. Pericardium There is no evidence of pericardial effusion. Interatrial Septum The interatrial septum appears normal. General Findings The image quality was fair (3). Technique(s) used in the evaluation: Color flow Doppler and Spectral Doppler. The predominant rhythm during the study was sinus. Comparison Findings No prior studies for comparison. Sheri GALLARDO CV ECHO ORDERABLES documented in this encounter Visit Diagnoses Diagnosis Palpitations- Primary Palpitations documented in this encounter Additional Health Concerns Infection Onset Date Last Indicated Resolved Time CoV-Risk 02/28/2021 02/28/2021 03/10/2021 1:41 AM EDT documented as of this encounter Care Teams Adjunct Trainer Relationship Specialty Start Date End Date Ramirez Wilhelm DO PCP - General 05/07/17 10/13/24 Ramirez Wilhelm DO [address] [place] [address] PCP - General Internal Medicine 10/14/24 Ramirez Wilhelm DO Historical LMR Provider 05/07/17 Estefany Jackson NP [address] [facility] [address] [place] [address] Historical LMR Provider 05/07/17 2 Belen Olvera MD [address] [address] Historical LMR Provider 05/07/17 aLurie Lopez NP [address] [place] [phone] Historical LMR Provider 05/07/17 2 Fide Atkinson NP [address] [place] [address] [email or web address] Historical LMR Provider 05/07/17 2 Summer Marrufo MD 15 [facility], 2nd [place] [address] Historical LMR Provider 05/07/17 Carlyle Ayon MD [address] [place] [address] Historical LMR Provider 05/07/17 07/30/21 Camron Richey MD [address] [place] [address] Historical LMR Provider 05/07/17 07/30/21 Laura Nicholas RDCS [email or web address] Historical LMR Provider 05/07/17 07/30/21 Marci Contreras NP [address] [place] [address] Historical LMR Provider 05/07/17 2 Ramirez Wilhelm DO [address] [place] [address] [email or web address] Insurance Assigned Provider 05/29/20 10/28/22 documented as of this encounter Additional Source Comments The information contained in this document represents components of the legal health record. It is not the complete legal health record.[facility]
--- OUTSIDE RECORDS SUMMARY | 2024-10-21 19:10 | XMS_ITS | Encounter Summary ---
Author Organization [facility] Address [address] [facility] [address] [place] [address] Phone Care Team Providers Care Gang Leader Name Role Phone Ramirez Wilhelm DO Unavailable Belen Olvera MD Unavailable [phone] Ramirez Wilhelm DO Primary Care Provider Ramirez Wilhelm DO Primary Care Provider [phone] Encounter Details Date Type Department Care Team (Late st Contact Info) Description 04/14/2024 Transcribe Orders Virtual Department [address] [place] [address] Ramirez Wilhelm DO [address] [facility] [address] [place] [address] [email or web address] Encounter for screening mammogram for malignant neoplasm of breast (Primary Dx) Social History Tobacco Use Types [...] Description 01/28/2025 1:45 PM EDT Office Visit [facility] [address] [place] [address] [address] [place] [address] Jimy Morales MD 22 [facility] [address] [place] [address] documented as of this encounter Visit Diagnoses Diagnosis Encounter for screening mammogram for malignant neoplasm of breast- Primary documented in this encounter Care Teams Gang Leader Relationship Specialty Start Date End Date Ramirez Wilhelm DO PCP - General 05/07/17 10/13/24 Ramirez Wilhelm DO [address] [facility] [address] [place] [address] PCP - General Internal Medicine 10/14/24 Ramirez Wilhelm DO Historical LMR Provider 05/07/17 Belen Olvera MD [address] [facility] [address] [place] [address] Historical LMR Provider 05/07/17 documented as of this encounter Additional Source Comments The information contained in this document represents components of the legal health record. It is not the complete legal health record.[facility]
--- OUTSIDE RECORDS SUMMARY | 2024-10-21 19:10 | XMS_ITS | Encounter Summary ---
Author Organization [facility] Address [address] [facility] [address] [place] [address] Phone Care Team Providers Care Live Truck Operator Name Role Phone Choco Ramirez Le DO Unavailable Belen Olvera MD Unavailable [phone] Ramirez Wilhelm DO Primary Care Provider [phone] Ramirez Wilhelm DO Primary Care Provider [phone] Encounter Details Date Type Department Care Team (Late st Contact Info) Description 03/27/2023 Transcribe Orders Virtual Department [address] [place] [address] Ramirez Wilhelm DO 179 [facility] [address] [place] [address] [email or web address] Breast screening (Primary Dx) Social History Tobacco Use Types [...] with a working camera? Not on file 05 / Sex and Gender Information Value Date Recorded Sex Assigned at Not on file Gender Identity Not on file Sexual Orientation Not on file documented as of this encounter Plan of Treatment Upcoming Encounters Date Type Department Care Team (Late st Contact Info) Description 01/28/2025 1:45 PM EDT Office Visit [facility] [address] [place] [address] 301 [place] [address] Jimy Morales MD 22 [facility], [address] [place] [address] [email or web address] documented as of this encounter Results * BI MAMMOGRAM SCREENING WITH TOMOSYNTHESIS WITH CAD (BILATERAL) (05/16/2023 8:55 AM EDT) Anatomical Region Laterality Modality Breast Left, Breast Right, Breast Bilateral Bila teral Mammography 05/17/2023 12:1 3 PM EDT Impressions 05/17/2023 12:22 PM EDT No specific mammographic evidence of malignancy in either breast. Annual screening mammography is recommended. BI-RADS CATEGORY: ??2 - Benign finding. The patient will be notified of the results and recommendations. Narrative 05/17/2023 12:22 PM EDT BI MAMMOGRAM SCREENING WITH TOMOSYNTHESIS WITH CAD (BILATERAL) Additional patient information: Screening. COMPARISON: Comparison is made with relevant prior imaging. Breast composition: The breast tissue is heterogeneously dense, which could obscure a lesion on mammography. FINDINGS: Previous surgical biopsy in both breasts. There is no change mammographically from previous exams. No abnormal masses, suspicious calcifications, or other significant findings are identified mammographically in either breast. Procedure Note Mireya Guerrero MD, PhD - 05/17/2023 BI MAMMOGRAM SCREENING WITH TOMOSYNTHESIS WITH CAD (BILATERAL) Additional patient information: Screening. COMPARISON: Comparison is made with relevant prior imaging. Breast composition: The breast tissue is heterogeneously dense, whichcould obscure a lesion on mammography. FINDINGS: Previous surgical biopsy in both breasts. There is no changemammographically from previous exams. No abnormal masses, suspicious calcifications, or other significantfindings are identified mammographically in either breast. IMPRESSION: No specific mammographic evidence of malignancy in either breast. Annual screening mammography is recommended. BI-RADS CATEGORY: 2 - Benign finding. The patient will be notified of the results and recommendations. Ramirez Wilhelm DO IMG MG EXAMS documented in this encounter Visit Diagnoses Diagnosis Breast screening- Primary Breast screening, unspecified Breast screening Breast screening, unspecified documented in this encounter Care Teams Live Truck Operator Relationship Specialty Start Date End Date Ramirez Wilhelm DO PCP - General 05/07/17 10/13/24 Ramirez Wilhelm DO 179 [facility] [place] [address] PCP - General Internal Medicine 10/14/24 Ramirez Wilhelm DO Historical LMR Provider 05/07/17 Belen Olvera MD [address] [place] [address] 102 [place] [address] Historical LMR Provider 05/07/17 documented as of this encounter Additional Source Comments The information contained in this document represents components of the legal health record. It is not the complete legal health record.[facility]
--- OUTSIDE RECORDS SUMMARY | 2024-10-21 19:10 | XMS_ITS | Encounter Summary ---
Author Organization [facility] Address [address] [facility] [address] [place] [address] Phone Care Team Providers Care Metal Mover Name Role Phone Ramirez Wilhelm DO Unavailable Estefany Jackson SPECIAL AGENT IN CHARGE Unavailable [phone] Belen Olvera MD Unavailable [phone] Laurie Lopez SPECIAL AGENT IN CHARGE Unavailable [phone] Fide Atkinson NP Unavailable [phone] Summer Marrufo MD Unavailable [phone] Carlyle Ayon MD Unavailable Camron Richey MD Unavailable [phone] Laura Nicholas RDCS Unavailable [email or web address] Marci Contreras SPECIAL AGENT IN CHARGE Unavailable [phone] Ramirez Wilhelm DO Primary Care Provider [phone] Ramirez Wilhelm DO Unavailable Ramirez Wilhelm DO Primary Care Provider [phone] Encounter Details Date Type Department Care Team (Late st Contact Info) Description 09/22/2020 Procedure Pass [facility], [address] [place] [address] Social History Tobacco Use Types Packs/Day Years [...] Upcoming Encounters Date Type Department Care Team ([facility] st Contact Info) Description 01/28/2025 1:45 PM EDT Office Visit [facility] [address] [place] [address] [address] [place] [address] Jimy Morales MD 22 [facility] 301 [place] [address] documented as of this encounter Visit Diagnoses Not on filedocumented in this encounter Additional Health Concerns Infection Onset Date Last Indicated Resolved Time CoV-Risk 02/28/2021 02/28/2021 03/10/2021 1:41 AM EDT documented as of this encounter Care Teams Metal Mover Relationship Specialty Start Date End Date Ramirez Wilhelm DO PCP - General 05/07/17 10/13/24 Ramirez Wilhelm DO 179 [facility] [place] [address] PCP - General Internal Medicine 10/14/24 Ramirez Wilhelm DO Historical LMR Provider 05/07/17 Estefany Jackson NP [address] [place] [address] Historical LMR Provider 05/07/17 2 Belen Olvera MD [address] [place] [address] 102 [place] [address] Historical LMR Provider 05/07/17 Laurie Lopez NP [address] [place] [address] Historical LMR Provider 05/07/17 2 Fide Atkinson NP 21 [place] [address] [email or web address] Historical LMR Provider 05/07/17 2 Summer Marrufo MD 15 [facility], 2nd [place] [address] Historical LMR Provider 05/07/17 Carlyle Ayon MD [address] [place] [address] Historical LMR Provider 05/07/17 07/30/21 Camron Richey MD [address] [address] Historical LMR Provider 05/07/17 07/30/21 Laura Nicholas, [place] Historical LMR Provider 05/07/17 07/30/21 Marci Contreras NP [address] [place] [address] Historical LMR Provider 05/07/17 2 Ramirez Wilhelm DO [address] [place] [address] [place] [address] [email or web address] Insurance Assigned Provider 05/29/20 10/28/22 documented as of this encounter Additional Source Comments The information contained in this document represents components of the legal health record. It is not the complete legal health record.[facility]
--- OUTSIDE RECORDS SUMMARY | 2024-10-21 19:10 | XMS_ITS | Encounter Summary ---
Author Organization [facility] Address [address] [facility] [address] [place] [address] Phone Care Team Providers Care Staff Research Associate Name Role Phone Ramirez Wilhelm DO Unavailable Estefany Jackson ELECTROTYPE MOLDER Unavailable [phone] Belen Olvera MD Unavailable [phone] Laurie Lopez ELECTROTYPE MOLDER Unavailable [phone] Fide Atkinson NP Unavailable [phone] Summer Marrufo MD Unavailable [phone] Carlyle Ayon MD Unavailable Camron Richey MD Unavailable [phone] Laura Nicholas RDCS Unavailable [email or web address] Marci Contreras ELECTROTYPE MOLDER Unavailable [phone] Ramirez Wilhelm DO Primary Care Provider [phone] Ramirez Wilhelm DO Unavailable Ramirez Wilhelm DO Primary Care Provider [phone] Encounter Details Date Type Department Care Team (Late st Contact Info) Description 09/17/2020 Procedure Pass [facility], [address] [place] [address] Social History Tobacco Use Types Packs/Day Years [...] Upcoming Encounters Date Type Department Care Team ([facility] st Contact Info) Description 01/28/2025 1:45 PM EDT Office Visit [facility] [address] [place] [address] 301 [place] [address] Jimy Morales MD 22 [facility] 301 [place] [address] documented as of this encounter Visit Diagnoses Not on filedocumented in this encounter Additional Health Concerns Infection Onset Date Last Indicated Resolved Time CoV-Risk 02/28/2021 02/28/2021 03/10/2021 1:41 AM EDT documented as of this encounter Care Teams Staff Research Associate Relationship Specialty Start Date End Date Ramirez Wilhelm DO PCP - General 05/07/17 10/13/24 Ramirez Wilhelm DO 179 [facility] [place] [address] PCP - General Internal Medicine 10/14/24 Ramirez Wilhelm DO Historical LMR Provider 05/07/17 Estefany Jackson NP [address] [place] [address] Historical LMR Provider 05/07/17 2 Belen Olvera MD [address] [place] [address] 102 [place] [address] Historical LMR Provider 05/07/17 Laurie Lopez NP [address] [place] [address] Historical LMR Provider 05/07/17 2 Fide Atkinson NP 21 [place] [address] [email or web address] Historical LMR Provider 05/07/17 2 Summer Marrufo MD 15 [facility], 2nd [place] [address] Historical LMR Provider 05/07/17 Carlyle Ayon MD [address] [place] [address] Historical LMR Provider 05/07/17 07/30/21 Camron Richey MD [address] [address] Historical LMR Provider 05/07/17 07/30/21 Laura Nicholas, [place] Historical LMR Provider 05/07/17 07/30/21 Marci Contreras NP [address] [place] [address] Historical LMR Provider 05/07/17 2 Ramirez Wilhelm DO [address] [place] [address] [place] [address] [email or web address] Insurance Assigned Provider 05/29/20 10/28/22 documented as of this encounter Additional Source Comments The information contained in this document represents components of the legal health record. It is not the complete legal health record.[facility]
--- OUTSIDE RECORDS SUMMARY | 2024-10-21 19:10 | XMS_ITS | Encounter Summary ---
Author Organization [facility] Address [address] [facility] [address] [place] [address] Phone Care Team Providers Care Lacquer Pin Press Operator Name Role Phone Ramirez Wilhelm DO Unavailable Belen Olvera MD Unavailable [phone] Bigda, Ramirez Rey DO Primary Care Provider [phone] Ramirez Wilhelm Rey DO Unavailable Bigda, Ramirez Rey DO Primary Care Provider [phone] Encounter Details Date Type Department Care Team (Late st Contact Info) Description 10/11/2021 Transcribe Orders Virtual Department [address] [place] [address] HeatherRamirez schmid, DO 179 [facility] [address] [place] [address] [email or web address] Other tear of medial meniscus, current injury, right knee, initial encounter (Primary Dx) Social History Tobacco Use Types [...] Encounters Date Type Department Care Team (Late Contact Info) Description 01/28/2025 1:45 PM EDT Office Visit [facility] [address] [place] [address] [address] [place] [address] Jimy Morales MD 22 [facility], [address] [place] [address] documented as of this encounter Visit Diagnoses Diagnosis Other tear of medial meniscus, current injury, right knee, initial encounter- Primary documented in this encounter Care Teams Lacquer Pin Press Operator Relationship Specialty Start Date End Date Ramirez Wilhelm DO PCP - General 05/07/17 10/13/24 Ramirez Wilhelm DO 179 [place] [address] PCP - General Internal Medicine 10/14/24 Ramirez Wilhelm DO Historical LMR Provider 05/07/17 Belen Olvera MD [address] [place] [address], [facility] 102 [place] [address] Historical LMR Provider 05/07/17 Ramirez Wilhelm DO 179 [facility] [place] [address] Insurance Assigned Provider 05/29/20 10/28/22 documented as of this encounter Additional Source Comments The information contained in this document represents components of the legal health record. It is not the complete legal health record.[facility]
--- OUTSIDE RECORDS SUMMARY | 2024-10-21 19:10 | XMS_ITS | Encounter Summary ---
Author Organization [facility] Address [address] [facility] [address] [place] [address] Phone Care Team Providers Care Continuous Improvement Coach Name Role Phone Ramirez Wilhelm DO Unavailable Belen Olvera MD Unavailable [phone] Bigda, Raimrez Rey DO Primary Care Provider [phone] Ramirez Wilhelm Rey DO Unavailable Bigda, Ramirez Rey DO Primary Care Provider [phone] Encounter Details Date Type Department Care Team (Late st Contact Info) Description 10/07/2021 Transcribe Orders Virtual Department [address] [place] [address] Ramirez Wilhelm Rey, DO 179 [facility] [place] [address] [email or web address] Other tear of medial meniscus, current injury, [...] Description 01/28/2025 1:45 PM EDT Office Visit [facility] [address] [place] [address] [address] [place] [address] Jimy Morales MD 22 [facility], [address] [place] [address] documented as of this encounter Visit Diagnoses Diagnosis Other tear of medial meniscus, current injury, right knee, initial encounter- Primary documented in this encounter Care Teams Continuous Improvement Coach Relationship Specialty Start Date End Date Ramirez Wilhelm DO PCP - General 05/07/17 10/13/24 Ramirez Wilhelm DO 179 [place] [address] PCP - General Internal Medicine 10/14/24 Ramirez Wilhelm DO Historical LMR Provider 05/07/17 Belen Olvera MD [address] [place] [address], [facility] 102 [place] [address] Historical LMR Provider 05/07/17 Ramirez Wilhelm DO 179 [facility] [place] [address] Insurance Assigned Provider 05/29/20 10/28/22 documented as of this encounter Additional Source Comments The information contained in this document represents components of the legal health record. It is not the complete legal health record.[facility]
--- OUTSIDE RECORDS SUMMARY | 2024-10-21 19:10 | XMS_ITS | Encounter Summary ---
Author Organization [facility] Address [address] [facility] [address] [place] [address] Phone Care Team Providers Care Brake Mechanic Name Role Phone Ramirez Wilhelm DO Unavailable Belen Olvera MD Unavailable [phone] Bigda, Ramirez A DO Primary Care Provider [phone] Bigda, Ramirez Le DO Unavailable Bigda, Ramirez A DO Primary Care Provider [phone] Encounter Details Date Type Department Care Team (Late st Contact Info) Description 03/30/2022 Procedure Pass [facility] - [address] [place] [address] Social History Tobacco Use Types Packs/Day Years [...] Description 01/28/2025 1:45 PM EDT Office Visit [facility] [address] [place] [address] 301 [place] [address] Jimy Morales MD 22 [facility], [address] [place], [place] [address] documented as of this encounter Visit Diagnoses Not on filedocumented in this encounter Care Teams Brake Mechanic Relationship Specialty Start Date End Date Ramirez Wilhelm DO PCP - General 05/07/17 10/13/24 Ramirez Wilhelm DO 179 [place] [address] PCP - General Internal Medicine 10/14/24 Ramirez Wilhelm DO Historical LMR Provider 05/07/17 Belen Olvera MD [address] [place] [address] 102 [place] [address] Historical LMR Provider 05/07/17 Ramirez Wilhelm DO 179 [place] [address] Insurance Assigned Provider 05/29/20 10/28/22 documented as of this encounter Additional Source Comments The information contained in this document represents components of the legal health record. It is not the complete legal health record.[facility]
--- OUTSIDE RECORDS SUMMARY | 2024-10-21 19:11 | XMS_ITS | Encounter Summary ---
Author Organization [facility] Address [address] [facility] [address] [place] [address] Phone Care Team Providers Care Assayer Name Role Phone Ramirez Wilhelm DO Unavailable Estefany Jackson SEWING LINE BALER Unavailable Belen Olvera MD Unavailable [phone] Laurie Lopez SEWING [employer] BALER Unavailable [phone] Fide Atkinson NP Unavailable Summer Marrufo MD Unavailable Carlyle Ayon MD Unavailable Camron Richey MD Unavailable [phone] Laura Nicholas RDCS Unavailable [email or web address] Marci Contreras SEWING LINE BALER Unavailable [phone] Ramirez Wilhelm DO Primary Care Provider [phone] Ramirez Wilhelm DO Unavailable Ramirez Wilhelm DO Unavailable Ramirez Wilhelm DO Primary Care Provider + Reason for Referral * MRI/CAT Scan - Closed Specialty Diagnoses / Procedures Referred By Ham donovan Referred To Contact Radiology Diagnoses Right upper quadrant pain Procedures CT Abdomen Only (No Pelvis) Ramirez Wilhelm DO [address] [facility] [place] [address] Email: [facility] Main [place] [address] [place] [address] Referral ID Status Reason Start Date Expiration Date Visits Re quested Visits Authorized [id number] Closed 01/12/2020 02/11/2020 1 1 Encounter Details Date Type Department Care Team (Late Contact Info) Description 10/01/2019 Transcribe Orders Virtual Department 30 [place] [address] Ramirez Wilhelm DO [address] [facility] [place] [address] [place] [address] Right upper quadrant pain (Primary Dx) Social History Tobacco Use [...] Description 01/28/2025 1:45 PM EDT Office Visit [facility] [address] [place] [address] Jimy Morales MD [address] [place] [address] documented as of this encounter Results * CT ABDOMEN WITH CONTRAST (01/19/2020 3:35 PM EDT) Anatomical Region Laterality Modality Abdomen, Abdominal Vasculature C omputed Tomography 01/19/2020 4:33 PM EDT Impressions 01/19/2020 4:47 PM EDT No explanation for right upper quadrant pain. No evidence of acute pathology in the abdomen. TOTAL CTDIvol: 7.40 mGy POS - [id number] Narrative 01/19/2020 4:47 PM EDT HISTORY: Right upper quadrant pain. COMPARISON: Abdominal ultrasound 09/30/2019, CT abdomen/pelvis 04/19/2018. TECHNIQUE: After the administration of oral and intravenous contrast, scanning is obtained from dome of the liver to the iliac crests. ??Sagittal and coronal reformats generated. ??Automated exposure control utilized. FINDINGS: Lower hemithoraces: No significant abnormalities. Musculoskeletal: ??No significant changes. Biliary: No evidence of biliary ductal dilatation. Liver: Few scattered sub-centimeter hypodense masses within the liver are stable and likely cysts. Liver otherwise appears normal. Spleen: ??No abnormalities demonstrated. Pancreas: ??No abnormalities demonstrated. Adrenals: No abnormalities demonstrated. : ??2-3 mm calculus in the left kidney near junction of the interpolar region lower pole is stable. Kidneys otherwise appear normal. Ureters normal in caliber.. Lymph nodes/lymphatics: ??No measurable lymphadenopathy. GI: ??No marked bowel distention or evidence of bowel wall thickening. No free air.. Cardiovascular: ??No significant abnormalities. Procedure Note Azam Guzman MD - 01/19/2020 HISTORY: Right upper quadrant pain. COMPARISON: Abdominal ultrasound 09/30/2019, CT abdomen/pelvis 04/19/2018. TECHNIQUE: After the administration of oral and intravenous contrast,scanning is obtained from dome of the liver to the iliac crests. [place] coronal reformats generated. Automated exposure control utilized. FINDINGS: Lower hemithoraces: No significant abnormalities. Musculoskeletal: No significant changes. Biliary: No evidence of biliary ductal dilatation. Liver: Few scattered sub-centimeter hypodense masses within the liver arestable and likely cysts. Liver otherwise appears normal. Spleen: No abnormalities demonstrated. Pancreas: No abnormalities demonstrated. Adrenals: No abnormalities demonstrated. : 2-3 mm calculus in the left kidney near junction of the interpolarregion lower pole is stable. Kidneys otherwise appear normal. Uretersnormal in caliber.. Lymph nodes/lymphatics: No measurable lymphadenopathy. GI: No marked bowel distention or evidence of bowel wall thickening. Nofree air.. Cardiovascular: No significant abnormalities. IMPRESSION: No explanation for right upper quadrant pain. No evidence of acutepathology in the abdomen. TOTAL CTDIvol: 7.40 mGy POS - [id number] Ramirez Wilhelm DO IMG CT XSPECIALTY OR DERABLES documented in this encounter Visit Diagnoses Diagnosis Right upper quadrant pain- Primary Abdominal pain, right upper quadrant Right upper quadrant pain Abdominal pain, right upper quadrant documented in this encounter Additional Health Concerns Infection Onset Date Last Indicated Resolved Time CoV-Risk 02/28/2021 02/28/2021 03/10/2021 1:41 AM EDT documented as of this encounter Care Teams Assayer Relationship Specialty Start Date End Date Ramirez Wilhelm DO PCP - General 05/07/17 10/13/24 Ramirez Wilhelm DO [address] [facility] [place] [address] PCP - General Internal Medicine 10/14/24 Ramirez Wilhelm DO Historical LMR Provider 05/07/17 Estefany Jackson NP [address] [place] [address] 340 [place] [address] Historical LMR Provider 05/07/17 2 Belen Olvera MD [address] [place] [address] 102 [place] [address] Historical LMR Provider 05/07/17 Laurie Lopez NP [address] [place] [address] Historical LMR Provider 05/07/17 2 Fide Atkinson NP 21 [place] [address] [email or web address] Historical LMR Provider 05/07/17 2 Summer Marrufo MD 15 [facility], 2nd [place] [address] Historical LMR Provider 05/07/17 Carlyle Ayon MD [address] [place] [address] Historical LMR Provider 05/07/17 07/30/21 Camron Richey MD [address] [address] Historical LMR Provider 05/07/17 07/30/21 Laura Nicholas, [place] Historical LMR Provider 05/07/17 07/30/21 Marci Contreras NP [address] [place] [address] Historical LMR Provider 05/07/17 2 Ramirez Wilhelm DO [address] [facility] [place] [address] [place] [address] Insurance Assigned Provider 11/23/18 05/01/20 Ramirez Wilhelm DO [address] [facility] [employer] [place] [address] Insurance Assigned Provider 05/29/20 10/28/22 documented as of this encounter Additional Source Comments The information contained in this document represents components of the legal health record. It is not the complete legal health record.[facility]
--- OUTSIDE RECORDS SUMMARY | 2024-10-21 19:11 | XMS_ITS | Encounter Summary ---
Author Organization [facility] Address [address] [facility] [address] [place] [address] Phone Care Team Providers Care Print Project Manager Name Role Phone HeatherRamirez schmid Rey OLIVA Unavailable Belen Olvera MD Unavailable [phone] Ramirez Wilhelm DO Primary Care Provider [phone] Encounter Details Date Type Department Care Team (Late st Contact Info) Description 10/21/2024 1:58 PM EDT Hospital Encounter [facility] [address] [place] [address] Jimy Morales MD [address] [facility], [address] [place] [address] [email or web address] Social History Tobacco Use Types Packs/Day Years [...] Description 01/28/2025 1:45 PM EDT Office Visit [facility] [address] [place] [address] [address] [place] [address] Jimy Morales MD [address] [facility], [address] [place] [address] [email or web address] documented as of this encounter Procedures Procedure Name Priority Date/Time Associated Diagnosis Comments IRON AND IRON BINDING CAPACITY Routine 10/21/2024 2:09 PM EDT RLS (restless legs syndrome) FERRITIN Routine 10/21/2024 2:09 PM EDT RLS (restless legs syndrome) documented in this encounter Results * (ABNORMAL) Ferritin (10/21/2024 2:09 PM EDT) FERRITIN 297(H) 13 - 150 ug/L [facility] Blood 10/21/2024 2:09 PM EDT 10/21/2024 2:11 PM EDT Jimy Morales MD LAB BLOOD ORDERABLES Performing Organization Address City/[facility]/ZIP Co de Phone Number [address] [address] * Iron and iron binding capacity (10/21/2024 2:09 PM EDT) IRON 99 30 - 160 ug/dL [facility] IRON BINDING CAPACITY 334 228 - 428 ug/dL [facility] TRANSFERRIN SATURAT. 30 15 - 50 % [facility] Blood 10/21/2024 2:09 PM EDT 10/21/2024 2:11 PM EDT Jimy Morales MD LAB BLOOD ORDERABLES [address] [address] documented in this encounter Visit Diagnoses Diagnosis RLS (restless legs syndrome) Restless legs syndrome (RLS) documented in this encounter Care Teams Print Project Manager Relationship Specialty Start Date End Date Ramirez Wilhelm DO [address] [place] [address] [place] [address] PCP - General Internal Medicine 10/14/24 Ramirez Wilhelm DO Historical LMR Provider 05/07/17 Belen Olvera MD [address] [place] [address] Historical LMR Provider 05/07/17 documented as of this encounter Additional Source Comments The information contained in this document represents components of the legal health record. It is not the complete legal health record.[facility]
--- OUTSIDE RECORDS SUMMARY | 2024-10-21 19:11 | XMS_ITS | Encounter Summary ---
Author Organization [facility] Address [address] [facility] [address] [place] [address] Phone Care Team Providers Care Quality Assurance/R&D Lab Technician Name Role Phone Ramirez Wilhelm DO Unavailable Belen Olvera MD Unavailable [phone] Ramirez Wilhelm DO Primary Care Provider [phone] Reason for Referral * Sleep Center - New Request Specialty Diagnoses / Procedures Referred By Contac t Referred To Contact Sleep Medicine Diagnoses DORIS (obstructive sleep apnea) Procedures Polysomnography Jimy Morales MD 22 [facility], [address] [place] [address] Email: [email or web address] Referral ID Status Reason Start Date Expiration Date V isits Requested Visits Authorized [id number] New Request 10/21/2024 1 1 Reason for Visit * Consultation (Elective) - Pending Review Specialty Diagnoses / Procedures Referred By Contac t Referred To Contact Diagnoses Sleep apnea, unspecified type Ramirez Wilhelm DO [address] [facility] [place] [address] Email: [email or web address] [facility] Parent [address] [place] [address] Referral ID Status Reason Start Date Expiration Date V isits Requested Visits Authorized [id number] Pending Review 04/23/2024 04/23/2025 1 1 Encounter Details Date Type Department Care Team (Latest Contact Info) Description 10/21/2024 1:00 PM EDT Office Visit [facility] [address] [place] [address] [address] [place] [address] Jimy Morales MD 22 [facility], [address] [place] [address] [email or web address] DORIS (obstructive sleep apnea) (Primary Dx); RLS (restless legs syndrome) Social History Tobacco Use Types Packs/Day Years Used Date Smoking Tobacco: Never Smokeless Tobacco: Never Tobacco Cessation:Counseling Given: Not Answered Alcohol Use Standard Drinks/Week Comments Yes 2 [...] on file documented as of this encounter Last Filed Vital Signs Vital Sign Reading Time Taken Comments Blood Pressure 124/80 10/21/2024 1:00 PM EDT Pulse 66 10/21/2024 1:00 PM EDT Temperature - - Respiratory Rate - - Oxygen Saturation 98% 10/21/2024 1:00 PM EDT Inhaled Oxygen Concentration - - Weight 79.4 kg (175 lb) 10/21/2024 1:00 PM EDT Height 167.6 cm (5' 5.98 ) 10/21/2024 1:00 PM ED T Body Mass Index 28.26 10/21/2024 1:00 PM EDT documented in this encounter Progress Notes * Jimy Morales MD - 10/21/2024 1:00 PM EDT Joi Madsen [id number] 10/21/2024 Sleep Apnea: She presents for a sleep evaluation. She complains of snoring, periods of not breathing, excessive daytime sleepiness. does have drowsiness driving She goes to sleep at 8-10 does Fall Asleep Easily Falls asleep in 5 minutes. awakens 6 does not sleep through the night awakens 1 time a night ? Reason 2-3 AM and it may take 1./2 hour to fall back to sleep Previous evaluation and treatment has included none. Narcolepsy: Patient Reports None Restless Legs: disturbs sleep onset a few times a week Medical Issues: Disrupting sleep: Pain No Heartburn No Sinus Problems No Nocturia 1 Sleep Hygeine: Caffeine does cups 1 in the am drink alcohol before bed does 3 times a week OTC sleeping meds no Prescription sleeping meds: no Past Medical History: Diagnosis Date Adverse effect of anesthetic vomitting Arthritis back BCC (basal cell carcinoma) nose Breast cyst Carcinoma in situ skin Depressive disorder Dysmenorrhea Febrile seizures as child - no issues since HTN (hypertension) Hyperlipidemia Shingles Past Surgical History: Procedure Laterality Date ABSCESS DRAINAGE BREAST CYST ASPIRATION past hx cyst aspir. unsure details BREAST CYST EXCISION BREAST EXCISIONAL BIOPSY Right RT 2000 elaine. BREAST EXCISIONAL BIOPSY Left Lt 1969 elaine. BREAST NEEDLE BIOPSY CATARACT EXTRACTION Right COLONOSCOPY polyps, submucosal rectal mass ?fibroid COLONOSCOPY N/A 06/07/2021 Performed by Jorge Quiroz MD at [facility] ENDOSCOPY DILATION AND CURETTAGE OF UTERUS D&C/removal of Hyperplastic endometrial polyp HYSTEROSCOPY 08/13/2020 w/polypectomy HYSTEROSCOPY and polypectomy thickened endometrium N/A 08/13/2020 Performed by Estrellita Vivas MD at [facility] OR MYOMECTOMY NECK SURGERY Current Outpatient Medications: amLODIPine (NORVASC) 5 MG tablet, amlodipine 5 mg tablet take 1 tablet by mouth once a day, Disp: ,Rfl: , Last Dispense: Unknown (patient-reported) aspirin 81 MG EC tablet, Take 81 mg by mouth daily., Disp: , Rfl: , Last Dispense: Unknown (patient-reported) atorvastatin (LIPITOR) 40 MG tablet, Take 1 tablet by mouth daily., Disp: , Rfl: , Last Dispense: Unknown (patient-reported) escitalopram oxalate (LEXAPRO) 20 MG tablet, Take 1 tablet by mouth daily., Disp: , Rfl: , Last Dispense: Unknown (patient-reported) losartan (COZAAR) 25 MG tablet, Take 25 mg by mouth daily., Disp: , Rfl: , Last Dispense: Unknown (patient-reported) metoprolol succinate (TOPROL-XL) 50 MG 24 hr tablet, Take 50 mg by mouth daily., Disp: , Rfl: , Last Dispense: Unknown (patient-reported) lisinopril (PRINIVIL,ZESTRIL) 5 MG tablet, Take 5 mg by mouth daily. (Patient not taking: Reported on 10/21/2024), Disp: , Rfl: , Last Dispense: Unknown (patient-reported) Bactrim [sulfamethoxazole-trimethoprim] and Erythromycin Social History Social History Narrative Not on file Family History Problem Relation Age of Onset Breast cancer Sister 36 Breast cancer Sister Ovarian cancer Paternal Aunt 45 Breast cancer Cousin Review of Systems All other systems reviewed and are negative. BP 124/80 Pulse 66 Ht 167.6 cm (5' 5.98 ) Wt 79.4 kg (175 lb) LMP (LMP Unknown) SpO2 98% BMI 28.26 kg/m?? Physical Exam Constitutional: Appearance: Normal appearance. Eyes: General: Left eye: No discharge. Extraocular Movements: Extraocular movements intact. Pupils: Pupils are equal, round, and reactive to light. Cardiovascular: Rate and Rhythm: Normal rate and regular rhythm. Pulses: Normal pulses. Heart sounds: Normal heart sounds. Pulmonary: Effort: Pulmonary effort is normal. Breath sounds: Normal breath sounds. Abdominal: General: Abdomen is flat. Palpations: Abdomen is soft. Musculoskeletal: General: Normal range of motion. Cervical back: Normal range of motion. Lymphadenopathy: Cervical: No cervical adenopathy. Skin: General: Skin is warm. Neurological: Mental Status: She is alert. ESS+ 13 ASSESSMENT: She likely has very symptomatic DORIS RLS PLAN: The physiology of sleep apnea was discussed with the patient. This included a discussion of the increased risk of from automobile accidents, heart attacks, and strokes. We also discussed the various alternative therapies available for sleep apnea, including the pros and cons of CPAP therapy, surgery, and the use of an oral appliance. HSS Iron studies She defers rx. documented in this encounter Plan of Treatment Upcoming Encounters Date Type Department Care Team (Becka Contact Info) Description 01/28/2025 1:45 PM EDT Office Visit [facility] [address] [place] [address] [address] [place] [address] Jimy Morales MD [address] [facility], [address] [place] [address] [email or web address] Scheduled Orders Name Type Priority Associated Diagnoses Orde r Schedule Polysomnography Sleep Center Routine DORIS (obstructive sleep apnea) Expected: 10/28/2024, Expires: 01/20/2025 documented as of this encounter Results * (ABNORMAL) Ferritin (10/21/2024 2:09 PM EDT) FERRITIN 297(H) 13 - 150 ug/L [facility] Blood 10/21/2024 2:09 PM EDT 10/21/2024 2:11 PM EDT Jimy Morales MD LAB BLOOD ORDERABLES Performing Organization Address City/[facility]/ZIP Co de Phone Number [address] [address] * Iron and iron binding capacity (10/21/2024 2:09 PM EDT) IRON 99 30 - 160 ug/dL [facility] IRON BINDING CAPACITY 334 228 - 428 ug/dL [facility] TRANSFERRIN SATURAT. 30 15 - 50 % [facility] Blood 10/21/2024 2:09 PM EDT 10/21/2024 2:11 PM EDT Jimy Morales MD LAB BLOOD ORDERABLES Performing Organization Address City/[facility]/ZIP Co de Phone Number [address] [address] documented in this encounter Visit Diagnoses Diagnosis DORIS (obstructive sleep apnea)- Primary Obstructive sleep apnea (adult) (pediatric) RLS (restless legs syndrome) Restless legs syndrome (RLS) documented in this encounter Care Teams Quality Assurance/R&D Lab Technician Relationship Specialty Start Date End Date Ramirez Wilhelm DO [address] [facility] [place] [address] [email or web address] PCP - General Internal Medicine 10/14/24 Ramirez Wilhelm DO Historical LMR Provider 05/07/17 Belen Olvera MD [address] [place] [address] [address] [place] [address] [email or web address] Historical LMR Provider 05/07/17 documented as of this encounter Additional Source Comments The information contained in this document represents components of the legal health record. It is not the complete legal health record.[facility]
--- OUTSIDE RECORDS SUMMARY | 2024-10-21 19:11 | XMS_ITS | Encounter Summary ---
Author Organization [facility] Address [address] [place] [address] Phone Care Team Providers Care Drapery Cutter Machine Name Role Phone Choco Ramirez Le DO Unavailable Belen Olvera MD Unavailable [phone] Ramirez Wilhelm DO Primary Care Provider [phone] Encounter Details Date Type Department Care Team (Late st Contact Info) Description 10/21/2024 3:38 PM EDT Hospital Encounter [facility], X-Ray - [address] [place] [address] Sheri Ray PA [address] [place] [address] [place] [address] Arrived Social History Tobacco Use Types Packs/Day Years [...] Description 01/28/2025 1:45 PM EDT Office Visit [facility] [address] [place] [address] [address] [place] [address] Jimy Morales MD 22 [facility] [address] [place] [address] Pending Results Name Type Priority Associated Diagnoses Date /Time XR Elbow (Left) Imaging Routine Left elbow pain 10/21/2024 3:59 PM EDT Scheduled Orders Name Type Priority Associated Diagnoses Orde r Schedule XR Elbow (Left) Imaging Routine Left elbow pain As Needed for 1 Occurrences starting 10/21/2024 until 10/21/2024 documented as of this encounter Visit Diagnoses Diagnosis Left elbow pain Pain in joint, upper arm documented in this encounter Care Teams Drapery Cutter Machine Relationship Specialty Start Date End Date Ramirez Wilhelm DO [address] [facility] [place] [address] PCP - General Internal Medicine 10/14/24 Ramirez Wilhelm DO Historical LMR Provider 05/07/17 Belen Olvera MD 22 [facility] 102 [place] [address] Historical LMR Provider 05/07/17 documented as of this encounter Additional Source Comments The information contained in this document represents components of the legal health record. It is not the complete legal health record.[facility]
--- OUTSIDE RECORDS SUMMARY | 2024-10-21 19:11 | XMS_ITS | Encounter Summary ---
Author Organization [facility] Address [address] [facility] [address] [place] [address] Phone Care Team Providers Care Funeral Assistant Name Role Phone Ramirez Wilhelm DO Unavailable Estefany [place] HOGSHEAD PRESS OPERATOR Unavailable [phone] Belen Olvera MD Unavailable [phone] Laurie Lopez HOGSHEAD PRESS OPERATOR Unavailable [phone] Fide Atkinson NP Unavailable Summer Marrufo MD Unavailable [phone] Carlyle Ayon MD Unavailable Camron Richey MD Unavailable [phone] Laura Nicholas RDCS Unavailable [email or web address] Marci Contreras HOGSHEAD PRESS OPERATOR Unavailable [phone] Ramirez Wilhelm DO Primary Care Provider [phone] Ramirez Wilhelm DO Unavailable Ramirez Wilhelm DO Primary Care Provider [phone] Encounter Details Date Type Department Care Team (Late st Contact Info) Description 06/07/2021 Procedure Pass [facility] Endoscopy Admitting Dept Virtual Department [address] [place] [address] Social History Tobacco Use Types Packs/Day Years [...] Upcoming Encounters Date Type Department Care Team ([facility] st Contact Info) Description 01/28/2025 1:45 PM EDT Office Visit [facility] [address] [place] [address] [address] [place] [address] Jimy Morales MD [address] [place] [address] documented as of this encounter Visit Diagnoses Not on filedocumented in this encounter Care Teams Funeral Assistant Relationship Specialty Start Date End Date Ramirez Wilhelm DO PCP - General 05/07/17 10/13/24 Ramirez Wilhelm DO [address] [place] [address] [place] [address] PCP - General Internal Medicine 10/14/24 Ramirez Wilhelm DO Historical LMR Provider 05/07/17 Estefany [place] NP [address] [place] [address] Historical LMR Provider 05/07/17 2 Belen Olvera MD [address] [place] [address] 102 [place] [address] Historical LMR Provider 05/07/17 Laurie Lopez HOGSHEAD PRESS OPERATOR [address] [place] [phone] Historical LMR Provider 05/07/17 2 Fide Atkinson NP [address] [place] [address] [email or web address] Historical LMR Provider 05/07/17 2 Summer Marrufo MD [address] [facility], 2nd [place] [address] Historical LMR Provider 05/07/17 Carlyle Ayon MD [address] [place] [address] Historical LMR Provider 05/07/17 07/30/21 Camron Richey MD [address] [facility] 102 [place] [address] Historical LMR Provider 05/07/17 07/30/21 Laura Nicholas, [place] Historical LMR Provider 05/07/17 07/30/21 Marci Contreras NP [address] [place] [address] Historical LMR Provider 05/07/17 2 Ramirez Wilhelm DO [address] [place] [address] [place] [address] Insurance Assigned Provider 05/29/20 10/28/22 documented as of this encounter Additional Source Comments The information contained in this document represents components of the legal health record. It is not the complete legal health record.[facility]
--- OUTSIDE RECORDS SUMMARY | 2024-10-21 19:11 | XMS_ITS | Encounter Summary ---
Author Organization [facility] Address [address] [facility] [address] [place] [address] Phone Care Team Providers Care Pulp And Paper Tester Name Role Phone Ramirez Wilhelm DO Unavailable Estefany [place] NP Unavailable [phone] Belen Olvera MD Unavailable [phone] Laurie Lopez NP Unavailable Fide Atkinson NP Unavailable Summer Marrufo MD Unavailable Carlyle Ayon MD Unavailable Camron Richey MD Unavailable [phone] Laura Nicholas RDCS Unavailable [email or web address] Marci Contreras PROGRAMMER A[employer] Unavailable [phone] Ramirez Wilhelm DO Primary Care Provider [phone] Ramirez Wilhelm DO Unavailable Ramirez Wilhelm DO Primary Care Provider [phone] Reason for Referral * MRI/CAT Scan - Closed Specialty Diagnoses / Procedures Referred By Ham donovan Referred To Contact Radiology Diagnoses Gastroesophageal reflux disease with esophagitis, unspecified whether hemorrhage RUQ abdominal pain Liver lesion Procedures MRI Cholangiopancreatography (MRCP) Sheri Flowers NP 10 [place] [address] Referral ID Status Reason Start Date Expiration Date Visits Re quested Visits Authorized [id number] Closed 09/17/2020 09/17/2021 1 1 Encounter Details Date Type Department Care Team (Latest Contact Info) Description 09/17/2020 Transcribe Orders Virtual Department 30 [place] [address] Sheri Flowers NP [address] [place] [address] [email or web address] Gastroesophageal reflux disease with esophagitis, unspecified whether hemorrhage (Primary Dx); RUQ abdominal pain; Liver lesion Social History Tobacco Use Types Packs/Day Years [...] Description 01/28/2025 1:45 PM EDT Office Visit [facility] [address] [place] [address] Jimy Morales MD [address] [place] [address], [address] [address] [email or web address] documented as of this encounter Results * MRI CHOLANGIOPANCREATOGRAPHY (MRCP) WITHOUT CONTRAST (10/02/2020 3:25 PM EST) Anatomical Region Laterality Modality Pancreas, Biliary Magnetic Reson ance 10/03/2020 4:02 PM EDT Impressions 10/03/2020 4:08 PM EDT The study is mildly limited in resolution but no significant biliary or other upper abdominal pathology is apparent. POS [id number] Narrative 10/03/2020 4:08 PM EDT TECHNIQUE: ??1.5 Yenifer scanner. Nonenhanced exam with MRCP technique. Compare to ultrasound 07/06/[address] 04/14/2020. Resolution is limited by motion artifact, particularly the 3-D MIPS reconstructions of the biliary tree. FINDINGS: Common duct is borderline dilated at 6 mm but tapers gently within the pancreatic head. No intrahepatic dilatation. No filling defects at any level. No extrinsic compression. No irregularity in the biliary tree to suggest biliary cirrhosis or cholangitis. No gallstones, gallbladder wall thickening or pericholecystic fluid. Several tiny simple hepatic cysts. No solid liver lesions. No evidence of steatosis or hemosiderosis. No pancreatic masses, inflammatory changes or duct dilatation. No splenomegaly or masses. No adrenal lesions. No renal masses or hydronephrosis. No adenopathy, ascites or pleural effusion. Procedure Note Iraj Ott MD - 10/03/2020 TECHNIQUE: 1.5 Yenifer scanner. Nonenhanced exam with MRCP technique. Compare to ultrasound 07/06/[address] 04/14/2020. Resolution is limited by motion artifact, particularly the 3-D MIPSreconstructions of the biliary tree. FINDINGS: Common duct is borderline dilated at 6 mm but tapers gently within thepancreatic head. No intrahepatic dilatation. No filling defects at anylevel. No extrinsic compression. No irregularity in the biliary tree to suggest biliary cirrhosis orcholangitis. No gallstones, gallbladder wall thickening or pericholecystic fluid. Several tiny simple hepatic cysts. No solid liver lesions. No evidence ofsteatosis or hemosiderosis. No pancreatic masses, inflammatory changes or duct dilatation. No splenomegaly or masses. No adrenal lesions. No renal masses or hydronephrosis. No adenopathy, ascites or pleural effusion. IMPRESSION: The study is mildly limited in resolution but no significant biliary orother upper abdominal pathology is apparent. POS [id number] Sherikayode Gordon Lionel CURTIS IMG MR ABDOMEN documented in this encounter Visit Diagnoses Diagnosis Gastroesophageal reflux disease with esophagitis, unspecified whether hemorrhage- Primary RUQ abdominal pain Abdominal pain, right upper quadrant Liver lesion Other specified disorders of liver Gastroesophageal reflux disease with esophagitis, unspecified whether hemorrhage RUQ abdominal pain Abdominal pain, right upper quadrant Liver lesion Other specified disorders of liver documented in this encounter Additional Health Concerns Infection Onset Date Last Indicated Resolved Time CoV-Risk 02/28/2021 02/28/2021 03/10/2021 1:41 AM EDT documented as of this encounter Care Teams Pulp And Paper Tester Relationship Specialty Start Date End Date Ramirez Wilhelm DO PCP - General 05/07/17 10/13/24 Ramirez Wilhelm DO [address] [facility] [place] [address] PCP - General Internal Medicine 10/14/24 Ramirez Wilhelm DO Historical LMR Provider 05/07/17 Estefany [place] NP [address] [address] Historical LMR Provider 05/07/17 2 Belen Olvera MD [address] [place] [address] 102 [place] [address] Historical LMR Provider 05/07/17 Laurie Lopez NP [address] [place] [address] [place] [address] Historical LMR Provider 05/07/17 2 Fide Atkinson NP 21 [place] [address] [email or web address] Historical LMR Provider 05/07/17 2 Summer Marrufo MD [address] [facility], 2nd [place] [address] Historical LMR Provider 05/07/17 Carlyle Ayon MD [address] [place] [address] [address] [place] [address] Historical LMR Provider 05/07/17 07/30/21 Camron Richey MD 22 [facility] 102 [place] [address] Historical LMR Provider 05/07/17 07/30/21 Laura Nicholas, JAMAICACS Historical LMR Provider 05/07/17 07/30/21 Marci Contreras NP [address] [place] [address] Historical LMR Provider 05/07/17 2 Ramirez Wilhelm DO [address] [place] [address] [place] [address] Insurance Assigned Provider 05/29/20 10/28/22 documented as of this encounter Additional Source Comments The information contained in this document represents components of the legal health record. It is not the complete legal health record.[facility]
--- OUTSIDE RECORDS SUMMARY | 2024-10-21 19:11 | XMS_ITS | Encounter Summary ---
Author Organization [facility] Address [address] [facility] [address] [place] [address] Phone Care Team Providers Care Director Health Name Role Phone Ramirez Wilhelm DO Unavailable Estefany Jackson SUPERVISOR COOLER SERVICE Unavailable [phone] Belen Olvera MD Unavailable [phone] Laurie Lopez SUPERVISOR COOLER SERVICE Unavailable [phone] Fide Atkinson NP Unavailable [phone] Summer Marrufo MD Unavailable [phone] Carlyle Ayon MD Unavailable Camron Richey MD Unavailable [phone] Laura Nicholas RDCS Unavailable [email or web address] Marci Contreras SUPERVISOR COOLER SERVICE Unavailable [phone] Ramirez Wilhelm DO Primary Care Provider [phone] Ramirez Wilhelm DO Unavailable Ramirez Wilhelm DO Primary Care Provider [phone] Encounter Details Date Type Department Care Team (Late st Contact Info) Description 08/13/2020 Procedure Pass OR Admitting Dept - Virtual Department [address] [place] [id number] Social History Tobacco Use Types Packs/Day [...] Upcoming Encounters Date Type Department Care Team ([facility] st Contact Info) Description 01/28/2025 1:45 PM EDT Office Visit [facility] [address] [place] [address] [address] [place] [address] Jimy Morales MD [address] [facility] [address] [place] [address] documented as of this encounter Visit Diagnoses Not on filedocumented in this encounter Additional Health Concerns Infection Onset Date Last Indicated Resolved Time CoV-Risk 02/28/2021 02/28/2021 03/10/2021 1:41 AM EDT documented as of this encounter Care Teams Director Health Relationship Specialty Start Date End Date Ramirez Wilhelm DO PCP - General 05/07/17 10/13/24 Ramirez Wilhelm DO [address] [facility] [place] [address] PCP - General Internal Medicine 10/14/24 Ramirez Wilhelm DO Historical LMR Provider 05/07/17 Estefany Jackson NP [address] [place] [address] Historical LMR Provider 05/07/17 2 Belen Olvera MD [address] [place] [address] [address] [place] [address] [email or web address] Historical LMR Provider 05/07/17 Laurie Lopez NP [address] [place] [address] Historical LMR Provider 05/07/17 2 Fide Atkinson NP [address] [place] [address] [email or web address] Historical LMR Provider 05/07/17 2 Summer Marrufo MD 15 [facility], 2nd [place] [address] Historical LMR Provider 05/07/17 Carlyle Ayon MD [address] [place] [address] Historical LMR Provider 05/07/17 07/30/21 Camron Richey MD [address] [address] Historical LMR Provider 05/07/17 07/30/21 Laura Nicholas, [place] Historical LMR Provider 05/07/17 07/30/21 Marci Contreras NP [address] [place] [address] Historical LMR Provider 05/07/17 2 Ramirez Wilhelm DO [address] [place] [address] [place] [address] [email or web address] Insurance Assigned Provider 05/29/20 10/28/22 documented as of this encounter Additional Source Comments The information contained in this document represents components of the legal health record. It is not the complete legal health record.[facility]
--- OUTSIDE RECORDS SUMMARY | 2024-10-21 19:11 | XMS_ITS | Clinical Summary ---
Author Organization [facility] Address [address] [facility] [address] [place] [address] Phone Care Team Providers Care Hand Binder Stripper Name Role Phone Ana Maria Nichole DO Unavailable Belen Olvera MD Unavailable [phone] Ana Maria Nichole DO Primary Care Provider [phone] Allergies Active Allergy Reactions Criticality Noted Date Comments Sulfamethoxazole-Trimethoprim Rash Low 2019 Erythromycin Rash Low 07/09/2020 Medications Medication Sig Dispensed Refills Start Date End Date Status atorvastatin (LIPITOR) 40 MG tablet Take 1 tablet by mouth daily. Active escitalopram oxalate (LEXAPRO) 20 MG tablet Take 1 tablet by mouth daily. Active lisinopril (PRINIVIL,ZESTRIL) 5 MG tablet Take 5 mg by mouth daily. Active aspirin 81 MG EC tablet Take 81 mg by mouth daily. Active metoprolol succinate (TOPROL-XL) 50 MG 24 hr tablet Take 50 mg by mouth daily. Active amLODIPine (NORVASC) 5 MG tablet amlodipine 5 mg tablet take 1 tablet by mouth once a day Active losartan (COZAAR) 25 MG tablet Take 25 mg by mouth daily. Active Active Problems Problem Noted Date Diagnosed Date Chronic left lower quadrant pain 05/26/2022 Overview (05/26/2022): Since 2019, moderate aching pain Normal pelvic US and MRI Assessment & Plan (05/26/2022 11:46 AM EDT): With normal imaging in 2020 of US and MRI, there is unlikely an ovarian origin to the pain Discussed my recommendation to meet with PCP about pain Could consider GI referral Could consider physical therapy From THERAPIST RRT standpoint - if these are not helpful, we can repeat the pelvic US. We could remove the left ovary, but as I think this is unlikely cause of pain, I would defer until further eval in other sheriff Complex tear of medial menis cus of right knee as current injury 10/25/2020 Post-traumatic osteoarthritis of right knee 11/2020 Acute internal derangement of left knee 10/26/19 21 Right ovarian cyst 07/09/2020 Overview (07/09/2020): 1.5cm simple right ovarian cyst, stable over multiple ultrasounds over many years No f/u indicated Thickened endometrium 07/09/2020 Overview (07/09/2020): 07/06/20 Pelvic US done for abdominal pain, shows 6mm endometrial stripe 2017 US showed 4mm endometrium 2019 CT scan without abnormalities of pelvis Assessment & Plan (07/09/2020 3:04 PM EST): Pt has had no postmenopausal bleeding. Reviewed that there is low probability of cancer with this finding. She would like to proceed anyhow with EMB. This is done with significant discomfort today. If results are benign, no further testing indicated for this Lower abdominal pain 07/09/2020 Overview (07/09/2020): Upper abd pain began Sept, then later lower abd pain began - diffuse cramping all the time, has not been seen for this but had pelvic US/abd US and telemed visit with PCP - plans to see GI as well. Unclear diagnosis. Very unlikely to be of THERAPIST RRT etiology based on US report. Encounter for preoperative s creening laboratory testing for COVID-19 virus Encounters Date Type Department Care Team Description 10/21/2024 3:38 PM EDT Hospital Encounter [facility], X-Ray - [address] [place], [place] [address] Sheri Ray PA Arrived 10/21/2024 3:38 PM EDT Hospital Encounter [facility], X-[address] [place] [address] Sheri Ray PA Arrived 10/21/2024 1:58 PM EDT Hospital Encounter [facility] [address] [place] [address] Jimy Morales MD 10/21/2024 1:00 PM EDT Office Visit [facility] [address] [place] [address] Jimy Morales MD DORIS (obstructive sleep apnea) (Primary Dx); RLS (restless legs syndrome) 10/21/2024 Ancillary Orders [facility], X-Ray - [address] [place] [address] Sheri Ray PA Left elbow pain (Primary Dx); Painful urination from Last 3 Months Immunizations Name Administration Dates Next Due COVID-19 (Pre-05/14) Moderna Vaccine, mRNA, PF 07/27/2021,09/08/2020,08/06/2020 Family History Medical History Relation Comments Breast cancer Cousin Ovarian cancer Paternal Aunt Breast cancer Sister 1 Breast cancer Sister 2 Relation Status Comments Cousin Paternal Aunt Sister 1 Sister 2 Alive Social History Tobacco Use Types Packs/Day Years [...] on file Sexual Orientation Not on file Last Filed Vital Signs Vital Sign Reading Time Taken Comments Blood Pressure 124/80 10/21/2024 1:00 PM EDT Pulse 66 10/21/2024 1:00 PM EDT Temperature 36.1 ??C (97 ??F) 06/07/2021 12:40 PM EST Respiratory Rate 14 06/07/2021 12:52 PM EST Oxygen Saturation 98% 10/21/2024 1:00 PM EDT Inhaled Oxygen Concentration - - Weight 79.4 kg (175 lb) 10/21/2024 1:00 PM EDT Height 167.6 cm (5' 5.98 ) 10/21/2024 1:00 PM ED T Body Mass Index 28.26 10/21/2024 1:00 PM EDT Plan of Treatment Upcoming Encounters Date Type Department Care Team (Late st Contact Info) Description 01/28/2025 1:45 PM EDT Office Visit [facility] [address] [place] [address] [address] [place] [address] Jimy Morales MD 22 [facility], [address] [place], [place] [id number] [email or web address] Health Maintenance Due Date Last Done Comments Adult Td,Tdap Booster 1960 DEPRESSION SCREENING 1971 HIV ONE-TIME SCREENING (18-65 YEARS) 1977 COLOGUARD 01/31/2004 FIT TEST 01/31/2004 FOBT 01/31/2004 SIGMOIDOSCOPY 01/31/2004 VIRTUAL COLONOSCOPY 01/31/2004 PNEUMOCOCCAL VACCINES (50+ years) (1 of 1 - PCV) 2009 ZOSTER VACCINES (1 of 2) 2009 OSTEOPOROSIS SCREENING INITIAL (ONE-TIME) 01/31/2024 INFLUENZA VACCINE (#1) 2024 05/19/2022 COVID-19 VACCINE ( season) 2024 05/19/2022, 12/13/2021, 07/27/2021, Additional history exists BLOOD PRESSURE 04/22/2025 10/21/2024 CREATININE LEVEL 04/22/2025 04/22/2024, 03/2022, 08/17/2020, Additional history exists POTASSIUM LEVEL 04/22/2025 04/22/2024, 09/0 03/2022, 08/17/2020, Additional history exists MAMMOGRAM 06/12/2026 06/12/2024, 04/23, 05/15/2022, Additional history exists SCREENING FOR DIABETES 04/22/2027 04/22/2024 LIPID PANEL 04/22/2029 04/22/2024, 09/0 03/2022, 12/21/2017 COLONOSCOPY 06/07/2031 06/07/2021 COLORECTAL CANCER SCREENING 06/07/2031 RSV VACCINE (1 - 1-dose 75+ series) 2034 HEPATITIS C SCREENING Completed 11/01/2018 SMOKING STATUS SCREENING (Once After 26 Yrs) Completed 10/21/2024 HEPATITIS A VACCINES Aged Out No long er eligible based on patient's age to complete this topic HIB VACCINES Aged Out No longer eligi ble based on patient's age to complete this topic MENINGOCOCCAL VACCINES (ACWY) Aged Out No longer eligible based on patient's age to complete this topic Medical Devices Not on file Procedures Procedure Name Priority Date/Time Associated Diagnosis Comments XR ABDOMEN 1 VIEW Routine 10/21/2024 3:5 9 PM EDT Painful urination FERRITIN Routine 10/21/2024 2:09 PM EDT RLS (restless legs syndrome) IRON AND IRON BINDING CAPACITY Routine 10/21/2024 2:09 PM EDT RLS (restless legs syndrome) BI MAMMOGRAM DIAGNOSTIC WITH TOMOSYNTHESIS WITH CAD (BILATERAL) Routine 06/12/2024 8:26 AM EST Mastodynia LIPID PANEL Routine 04/22/2024 11:26 AM EDT Family history of malignant neoplasm of breast Benign hypertension COMPREHENSIVE METABOLIC PANEL Routine 04/22/2024 11:26 AM EDT Family history of malignant neoplasm of breast Benign hypertension ENDOSCOPY, COLON 06/07/2021 12:2 2 PM EST HEPATITIS C VIRAL LOAD (PCR) Routine 11/01/2018 2:36 PM EDT Oral lichen planus from Last 3 Months or Most Recently Relevant to Health Maintenance Results * XR ABDOMEN 1 VIEW (10/21/2024 3:59 PM EDT) Anatomical Region Laterality Modality Abdomen Computed Radiogr aphy 10/21/2024 4:42 PM EDT Impressions 10/21/2024 4:42 PM EDT Nonobstructive bowel gas pattern. Narrative 10/21/2024 4:42 PM EDT XR ABDOMEN 1 VIEW Referring clinician's provided indication for this examination in [facility]: Pain COMPARISON: CT ABDOMEN/PELVIS WITH CONTRAST FINDINGS: Tubes/Lines: None Visualized lower chest: Unremarkable. Abdomen: No dilated loops of bowel. ??Mild colonic stool. Bones/Soft Tissues: No acute osseous finding. Procedure Note Laurita Urrutia MD - 10/21/2024 XR ABDOMEN 1 VIEW Referring clinician's provided indication for this examination in [facility]:Pain COMPARISON: CT ABDOMEN/PELVIS WITH CONTRAST FINDINGS: Tubes/Lines: None Visualized lower chest: Unremarkable. Abdomen: No dilated loops of bowel. Mild colonic stool. Bones/Soft Tissues: No acute osseous finding. IMPRESSION: Nonobstructive bowel gas pattern. Sheri GALLARDO IMG XR ABDOMEN * Iron and iron binding capacity (10/21/2024 2:09 PM EDT) IRON 99 30 - 160 ug/dL [facility] IRON BINDING CAPACITY 334 228 - 428 ug/dL [facility] TRANSFERRIN SATURAT. 30 15 - 50 % [facility] Blood 10/21/2024 2:09 PM EDT 10/21/2024 2:11 PM EDT Jimy Morales MD LAB BLOOD ORDERABLES [facility] [address] [place] [address] * (ABNORMAL) Ferritin (10/21/2024 2:09 PM EDT) FERRITIN 297(H) 13 - 150 ug/L [facility] Blood 10/21/2024 2:09 PM EDT 10/21/2024 2:11 PM EDT Jimy Morales MD LAB BLOOD ORDERABLES Performing Organization Address City/State/[facility] Co de Phone Number [address] [address] * BI MAMMOGRAM DIAGNOSTIC WITH TOMOSYNTHESIS WITH CAD (BILATERAL) (06/12/2024 8:26 AM EST) Anatomical Region Laterality Modality Breast Left, Breast Right, Breast Bilateral Bila teral Mammography 06/12/2024 9:35 AM EST Impressions 06/12/2024 9:37 AM EST 1. ??No mammographic evidence of malignancy in the right breast. 2. ??No imaging findings to account for the clinical symptoms of left breast pain. Management of breast pain should be based on the level of clinical concern. Negative imaging findings should not preclude biopsy of any clinically suspicious finding. BI-RADS 1 NEGATIVE Results and recommendations were communicated to the patient at time of examination. Narrative 06/12/2024 9:37 AM EST BI MAMMOGRAM DIAGNOSTIC WITH TOMOSYNTHESIS WITH CAD (BILATERAL), BI US BREAST LIMITED (LEFT) Additional patient information: Focal pain in the subareolar left breast. ??Pain was intermittent for months, however has improved. ?? COMPARISON: Comparison is made with relevant prior imaging. Breast composition: The breast tissue is extremely dense which lowers the sensitivity of mammography. FINDINGS: Right Mammogram: No abnormal masses, suspicious calcifications, or other significant findings are identified mammographically in the right breast. There is no change since previous examination. Left Mammogram: There is no focal or suspicious mammographic correlate for the area of clinical concern. A suspected asymmetry in the lateral breast on the CC projection does not persist on spot compression views. There are scattered punctate and lucent centered calcifications present. No abnormal masses, suspicious calcifications, or other significant findings are identified mammographically in the left breast. Left Ultrasound: Targeted ultrasound was performed in the area of clinical concern as indicated by the patient. No sonographic abnormality is seen. Procedure Note Cheyanne Jeffries MD - 06/12/2024 BI MAMMOGRAM DIAGNOSTIC WITH TOMOSYNTHESIS WITH CAD (BILATERAL), BI USBREAST LIMITED (LEFT) Additional patient information: Focal pain in the subareolar left breast.Pain was intermittent for months, however has improved. COMPARISON: Comparison is made with relevant prior imaging. Breast composition: The breast tissue is extremely dense which lowers thesensitivity of mammography. FINDINGS: Right Mammogram: No abnormal masses, suspicious calcifications, or other significantfindings are identified mammographically in the right breast. There is nochange since previous examination. Left Mammogram: There is no focal or suspicious mammographic correlate for the area ofclinical concern. A suspected asymmetry in the lateral breast on the CCprojection does not persist on spot compression views. There are scatteredpunctate and lucent centered calcifications present. No abnormal masses,suspicious calcifications, or other significant findings are identifiedmammographically in the left breast. Left Ultrasound: Targeted ultrasound was performed in the area of clinicalconcern as indicated by the patient. No sonographic abnormality is seen. IMPRESSION: 1. No mammographic evidence of malignancy in the right breast. 2. No imaging findings to account for the clinical symptoms of leftbreast pain. Management of breast pain should be based on the level ofclinical concern. Negative imaging findings should not preclude biopsy ofany clinically suspicious finding. BI-RADS 1 NEGATIVE Results and recommendations were communicated to the patient at time ofexamination. Ana Maria A Bigda DO IMG MG EXAMS * Comprehensive metabolic panel (04/22/2024 11:26 AM EDT) SODIUM 141 133 - 146 mmol/L [facility] POTASSIUM 4.3 3.3 - 5.1 mmol/L [facility] CHLORIDE 104 96 - 108 mmol/L [facility] CO2 23 21 - 35 mmol/L [facility] BUN 15 6 - 19 mg/dL [facility] CREATININE 0.60 0.5 - 1.5 mg/dL [facility] GLUCOSE 89 70 - 99 mg/dL [facility] ALBUMIN 4.2 3.9 - 4.8 g/dL [facility] TOTAL PROTEIN 7.7 6.5 - 8.0 g/dL [facility] CALCIUM 10.0 8.4 - 10.3 mg/dL [facility] ALKALINE PHOSPHATASE 66 39 - 117 U/L [facility] TOTAL BILIRUBIN 0.4 0.0 - 1.2 mg/dL [facility] AST 19 0 - 37 U/L [facility] ALT 24 0 - 40 U/L [facility] GLOBULIN 3.5 1 - 4.8 g/dL [facility] EGFR 100 >59 mL/min/1.7 3m2 [facility] Comment:Estimated glomerular filtration rate calculated using the CKD-EPI refit equation. ANION GAP 18 10 - 20 mmol/L [facility] Blood 04/22/2024 11:2 6 AM EDT 04/22/2024 11:33 AM EDT Ana Maria Nichole DO LAB BLOOD ORDERABLES [facility] [address] [place] [address] * (ABNORMAL) Lipid panel (04/22/2024 11:26 AM EDT) HDL 73 mg/dL [facility] Comment: ? Interpretation <40 mg/dL: Low HDL cholesterol (major risk factor for CHD) Greater than or equal to 60 mg/dL: High HDL cholesterol ( negative risk factor for CHD) HDL - cholesterol is affected by a number of factors, e.g. smoking, excerise, hormones, sex and age. CHOLESTEROL 237 0 - 240 mg/dL [facility] TRIGLYCERIDES 201(H) 30 - 160 mg/dL [facility] LDL 124 50 - 129 mg/dL [facility] Comment: LDL levels in terms of risk for coronary heart disease: <100 mg/dL: Optimal 100-129 mg/dL: Near or above optimal 130-159 mg/dL: Borderline high 160-189 mg/dL: High >190 mg/dL: Very High CARDIAC RISK RATIO 3.2(L) 3.3 - 4.4 [facility] Blood 04/22/2024 11:2 6 AM EDT 04/22/2024 11:35 AM EDT Ana Maria Nichole DO LAB BLOOD ORDERABLES [facility] [address] [place] [address] * ENDOSCOPY, COLON (06/07/2021 12:22 PM EST) Narrative Transcriptions Jorge Chang MD - 06/07/2021 12:22 PM EST Patient Name: Joi Tena Attending MD:: JORGE CHANG MD, Procedure Date: 06/07/2021 12:22PM Date of : 1960 Age: 61 Admit Type: Outpatient Gender: Female Room: [place] [address] Referring MD: ANA MARIA NICHOLE DO Exam Type: Colonoscopy Indications: High risk colon cancer surveillance: Personalhistory of colonic polyps Medications: Monitored Anesthesia Care Procedure: Informed consent was obtained from the patient after discussion of the indications, limitations, alternatives, benefits, and risks of the procedure. Risks specifically discussed include but are not limited to medication reactions, missed lesions, bleeding, perforation, or the need for emergentsurgery. Throughout the procedure, the patient's bloodpressure, pulse, end-tidal CO2, and oxygen saturations were monitored continuously. The Olympus pediatric variable colonoscopePCF-[id number] #4 was introduced through the anus and advanced tothe cecum, identified by appendiceal orifice andileocecal valve. The colonoscopy was performed without difficulty. The patient tolerated the procedurewell. The quality of the bowel preparation was excellent.The quality of the bowel preparation was evaluated using the BBPS (Mikana Bowel Preparation Scale) withscores of: Right Colon = 3, Transverse Colon = 3 and Left Colon = 3 (entire mucosa seen well with no residual staining, small fragments of stool or opaqueliquid). The total BBPS score equals 9. Complications: No immediate complications. Estimated blood loss:None. Findings: The perianal and digital rectal examinations were normal. Internal hemorrhoids were found during retroflexion. The hemorrhoids were mild. The exam was otherwise normal throughout theexamined colon. Impression: - Internal hemorrhoids. - No specimens collected. Recommendation: - Discharge patient to home. - Repeat colonoscopy in 10 years for screeningpurposes. JORGE CHANG MD, 06/07/2021 12:41:21 PM This report has been signed electronically. Number of Addenda: 0 Note Initiated On: 06/07/2021 12:22 PM Procedure Code(s): --- Professional --- 31050, Colonoscopy, flexible; diagnostic, including collection of specimen(s) by brushing or washing, when performed (separateprocedure) --- Technical --- 94520, Colonoscopy, flexible; diagnostic, including collection of specimen(s) by brushing or washing, when performed (separateprocedure) Diagnosis Code(s): --- Professional --- Z86.010, Personal history of colonic polyps K64.8, Other hemorrhoids --- Technical --- Z86.010, Personal history of colonic polyps K64.8, Other hemorrhoids CPT copyright 2018 [employer]. All rights reserved. The codes documented in this report are preliminary and upon [employer] group leader reviewmay be revised to meet current compliance requirements. Procedure Date: 06/07/2021 12:22:35 PM [address] [place] [address] Ana Maria A Bigda DO GI PROCEDURE ORDERAB LES * Hepatitis C viral load (PCR) (11/01/2018 2:36 PM EDT) HCV RNA DETECT/QNT Undetected Undetected IU/mL [facility] Comment: (NOTE) Result in log IU/mL is Undetected. ADDITIONAL INFORMATION The quantification range of this assay is 15 to 100,000,000 IU/mL (1.18 log to 8.00 log IU/mL). Testing was performed using the adrian HCV test ([employer] with the adrian 6800 System. Blood (Blood) 11/01/2018 2:3 6 PM EDT 11/01/2018 2:39 PM EDT Aimee Martinez MD NON CULTURE [facility] [address] [place] [address] from Last 3 Months or Most Recently Relevant to Health Maintenance Care Teams Hand Binder Stripper Relationship Specialty Start Date End Date Ana Maria Nichole DO [address] [facility] [place] [address] [email or web address] PCP - General Internal Medicine 10/14/24 Ana Maria Nichole DO Historical LMR Provider 05/07/17 Belen Olvera MD [address] [place] [address] [address] [place] [address] @[email or web address] Historical LMR Provider 05/07/17 Additional Source Comments The information contained in this document represents components of the legal health record. It is not the complete legal health record.[facility]
--- OUTSIDE RECORDS SUMMARY | 2024-10-21 19:11 | XMS_ITS | Encounter Summary ---
Author Organization [facility] Address [address] [facility] [address] [place] [address] Phone Care Team Providers Care Ed Educational Aide Name Role Phone Ramirez Wilhelm DO Unavailable Estefany Jackson JUNIOR HIGH MATH TEACHER Unavailable [phone] Belen Olvera MD Unavailable [phone] Laurie Lopez JUNIOR HIGH MATH TEACHER Unavailable [phone] Fide Atkinson NP Unavailable [phone] Summer Marrufo MD Unavailable [phone] Carlyle Ayon MD Unavailable Camron Richey MD Unavailable [phone] Laura Nicholas RDCS Unavailable [email or web address] Marci Contreras JUNIOR HIGH MATH TEACHER Unavailable [phone] Ramirez Wilhelm DO Primary Care Provider +[phone] Ramirez Wilhelm DO Unavailable Ramirez Wilhelm DO Unavailable + Ramirez Wilhelm DO Primary Care Provider + Encounter Details Date Type Department Care Team (Late st Contact Info) Description 12/24/2019 Procedure Pass [facility], Ct Scan - [address] [address] Social History Tobacco Use Types Packs/Day Years Used Date Smoking Tobacco: Never Assessed Sex and Gender Information Value Date Recorded Sex Assigned at Not on file Gender Identity Not on file Sexual Orientation Not on file documented as of this encounter Plan of Treatment Upcoming Encounters Date Type Department Care Team (Late st Contact Info) Description 01/28/2025 1:45 PM EDT Office Visit [facility] [address] [place] [address] [address] [place] [address] Jimy Morales MD 22 [facility], [facility] 301 [place] [address] documented as of this encounter Visit Diagnoses Not on filedocumented in this encounter Additional Health Concerns Infection Onset Date Last Indicated Resolved Time CoV-Risk 02/28/2021 02/28/2021 03/10/2021 1:41 AM EDT documented as of this encounter Care Teams Ed Educational Aide Relationship Specialty Start Date End Date Ramirez Wilhelm DO PCP - General 05/07/17 10/13/24 Ramirez Wilhelm DO [address] [facility] [address] [place] [address] PCP - General Internal Medicine 10/14/24 Ramirez Wilhelm DO Historical LMR Provider 05/07/17 Estefany Jackson NP [address] [place] [address] 340 [place] [address] Historical LMR Provider 05/07/17 2 Belen Olvera MD 22 [facility], [address] [place] [address] Historical LMR Provider 05/07/17 Laurie Lopez NP [address] [place] [address] Historical LMR Provider 05/07/17 2 Fide Atkinson NP 21 [place] [address] [email or web address] Historical LMR Provider 05/07/17 2 Summer Marrufo MD 15 [facility], [address] [place] [address] Historical LMR Provider 05/07/17 Carlyle Ayon MD [address] [address] Historical LMR Provider 05/07/17 07/30/21 Camron Richey MD [address] [address] Historical LMR Provider 05/07/17 07/30/21 Laura Nicholas, [place] Historical LMR Provider 05/07/17 07/30/21 Marci Contreras NP [address] [place] [address] Historical LMR Provider 05/07/17 2 Ramirez Wilhelm DO [address] [place] [address] [address] [place] [address] Insurance Assigned Provider 11/23/18 05/01/20 Ramirez Wilhelm DO [address] [place] [address] Insurance Assigned Provider 05/29/20 10/28/22 documented as of this encounter Additional Source Comments The information contained in this document represents components of the legal health record. It is not the complete legal health record.[facility]
--- OUTSIDE RECORDS SUMMARY | 2024-10-21 19:11 | XMS_ITS | Encounter Summary ---
Author Organization [facility] Address [address] [facility] [address] [place] [address] Phone Care Team Providers Care Desk Maker Name Role Phone Ramirez Wilhelm DO Unavailable Estefany Jackson OB GYN Unavailable Belen Olvera MD Unavailable Laurie Lopez OB GYN Unavailable Fide Atkinson NP Unavailable Summer Marrufo MD Unavailable Carlyle Ayon MD Unavailable Camron Richey MD Unavailable [phone] Laura Nicholas RDCS Unavailable [email or web address] Marci Contreras OB GYN Unavailable [phone] Ramirez Wilhelm DO Primary Care Provider +[phone] Ramirez Wilhelm DO Unavailable Ramirez Wilhelm DO Unavailable BigRamirez schmid DO Primary Care Provider [phone] Encounter Details Date Type Department Care Team (Late st Contact Info) Description 12/28/2017 Ancillary Orders [facility] Department [address] [place], [place] [id number] Clarissa Martin, MANAGER NEONATAL 12 [place], [place] [id number] Pelvic and perineal pain Social History Tobacco Use Types Packs/Day Years Used Date Smoking Tobacco: Never Assessed Sex and Gender Information Value Date Recorded Sex Assigned at Not on file Gender Identity Not on file Sexual Orientation Not on file documented as of this encounter Plan of Treatment Upcoming Encounters Date Type Department Care Team (Late st Contact Info) Description 01/28/2025 1:45 PM EDT Office Visit [facility] [address] [place] [address] 301 [place] [address] Jimy Morales MD 22 [facility], [facility] 301 [place], [place] [id number] [email or web address] documented as of this encounter Results * US PELVIS TRANSABDOMINAL PLUS TRANSVAGINAL (01/04/2018 1:27 PM EDT) Anatomical Region Laterality Modality Pelvis, Uterus/Adnexa Ultrasound 01/04/2018 1:29 PM EDT Impressions 01/04/2018 1:32 PM EDT Chronic small benign-appearing right adnexal cyst. Unremarkable uterus and left ovary. No source of pelvic and perineal pain is apparent. POS [id number] Narrative 01/04/2018 1:32 PM EDT Transabdominal and transvaginal exam Compare 03/21/2013. Uterus remains normal in appearance. 7.2 x 2.4 x 4.8 cm. No myometrial masses. No endometrial thickening or fluid collections. Combined thickness 4 mm. Left ovary unremarkable. 2.3 cc. Normal blood flow flow. In the right adnexa there is a unilocular 17 x 15 x 13 mm cyst which is unchanged from 2012. Blood flow is seen along its edge. There is no significant additional surrounding right ovarian tissue. No free fluid in the cul-de-sac. Procedure Note Iraj Ott MD - 01/04/2018 Transabdominal and transvaginal exam Compare 03/21/2013. Uterus remains normal in appearance. 7.2 x 2.4 x 4.8 cm. No myometrial masses. No endometrial thickening or fluid collections. Combined thickness 4 mm. Left ovary unremarkable. 2.3 cc. Normal blood flow flow. In the right adnexa there is a unilocular 17 x 15 x 13 mm cyst which isunchanged from 2012. Blood flow is seen along its edge. There is nosignificant additional surrounding right ovarian tissue. No free fluid in the cul-de-sac. IMPRESSION: Chronic small benign-appearing right adnexal cyst. Unremarkable uterus andleft ovary. No source of pelvic and perineal pain is apparent. POS [id number] Clarissa RODRIGUEZ US PELVIS documented in this encounter Visit Diagnoses Diagnosis Pelvic and perineal pain Pelvic and perineal pain documented in this encounter Additional Health Concerns Infection Onset Date Last Indicated Resolved Time CoV-Risk 02/28/2021 02/28/2021 03/10/2021 1:41 AM EDT documented as of this encounter Care Teams Desk Maker Relationship Specialty Start Date End Date Ramirez Wilhelm DO PCP - General 05/07/17 10/13/24 Ramirez Wilhelm DO 179 [place] [address] PCP - General Internal Medicine 10/14/24 Ramirez Wilhelm DO Historical LMR Provider 05/07/17 Estefany Jackson NP [address] [place] [address] Historical LMR Provider 05/07/17 2 Belen Olvera MD [address] [address] Historical LMR Provider 05/07/17 Laurie Lopez NP [address] [place] [address] Historical LMR Provider 05/07/17 2 Fide Atkinson NP [address] [place] [address] [email or web address] Historical LMR Provider 05/07/17 2 Summer Marrufo MD 15 [facility], [address] [place] [address] Historical LMR Provider 05/07/17 Carlyle Ayon MD [address] [place] [address] Historical LMR Provider 05/07/17 07/30/21 Camron Richey MD [address] [address] Historical LMR Provider 05/07/17 07/30/21 Laura Nicholas, [place] Historical LMR Provider 05/07/17 07/30/21 Marci Contreras NP [address] [place] [address] Historical LMR Provider 05/07/17 2 HeatherRamirez schmidDO 179 [place] [address] Insurance Assigned Provider 11/23/18 05/01/20 Ramirez Wilhelm DO 179 [place] [address] Insurance Assigned Provider 05/29/20 10/28/22 documented as of this encounter Additional Source Comments The information contained in this document represents components of the legal health record. It is not the complete legal health record.[facility]
--- OUTSIDE RECORDS SUMMARY | 2024-10-21 19:11 | XMS_ITS | Encounter Summary ---
Author Organization [facility] Address [address] [facility] [address] [place] [address] Phone Care Team Providers Care Director Medical Economics Name Role Phone Choco Ramirez Le DO Unavailable Estefany Jackson PIGMENT SUPPLIER Unavailable [phone] Belen Olvera MD Unavailable [phone] Laurie Lopez PIGMENT SUPPLIER Unavailable [phone] Fide Atkinson NP Unavailable [phone] Summer Marrufo MD Unavailable [phone] Carlyle Ayon MD Unavailable Camron Richey MD Unavailable [phone] Laura Nicholas RDCS Unavailable [email or web address] Marci Contreras PIGMENT SUPPLIER Unavailable [phone] Ramirez Wilhelm DO Primary Care Provider +[phone] BigRamirez schmid DO Unavailable + Ramirez Wilhelm DO Unavailable + Bigsharmaine, Ramirez Le DO Primary Care Provider + Encounter Details Date Type Department Care Team (Latest Contact Info) Description 05/21/2017 Transcribe Orders [facility], X-Ray - [address] [place] [address] Clarissa Martin, ASSEMBLER BONDING [address] [place] [address] [email or web address] Flank pain (Primary Dx) Social History Tobacco Use [...] Description 01/28/2025 1:45 PM EDT Office Visit [facility] [address] [place] [address] 301 [place] [address] Jimy Morales MD 22 [facility], [address] [place] [address] [email or web address] documented as of this encounter Results * XR ABDOMEN 1 VIEW (05/21/2017 3:54 PM EDT) Anatomical Region Laterality Modality Abdomen Radiographic Adriana ging 05/21/2017 3:50 PM EDT Impressions 05/21/2017 3:53 PM EDT Probable migration of 3 x 7 mm stone into the distal right ureter a few cm from the UVJ. POS [id number] Narrative 05/21/2017 3:53 PM EDT Three supine views. Compared to CT 03/14/2016 There is now an oval 3 x 7 mm calcification overlying the right hemipelvis along the expected course of the ureter several cm from the expected location of the UPJ. ??This was not apparent on 03/14/2016 and is very likely a ureteral stone. The non-obstructing stone seen in the mid right kidney on the prior CT is no longer apparent further supporting that that calculus has migrated out into the ureter. No stones are seen over either kidney today. ??Round calcification in the left hemipelvis are almost certainly phleboliths. ??No suspicious calcifications over the course of the left collecting system. Bowel gas pattern is unremarkable. ??Minimal volume of stool. Procedure Note Iraj Ott MD - 05/21/2017 Three supine views. Compared to CT 03/14/2016 There is now an oval 3 x 7 mm calcification overlying the right hemipelvisalong the expected course of the ureter several cm from the expectedlocation of the UPJ. This was not apparent on 03/14/2016 and is verylikely a ureteral stone. The non-obstructing stone seen in the mid right kidney on the prior CT isno longer apparent further supporting that that calculus has migrated outinto the ureter. No stones are seen over either kidney today. Round calcification in theleft hemipelvis are almost certainly phleboliths. No suspiciouscalcifications over the course of the left collecting system. Bowel gas pattern is unremarkable. Minimal volume of stool. IMPRESSION: Probable migration of 3 x 7 mm stone into the distal right ureter a few cmfrom the UVJ. POS [id number] Clarissa Martin ASSEMBLER BONDING IMG XR ABDOMEN documented in this encounter Visit Diagnoses Diagnosis Flank pain- Primary Abdominal pain, unspecified site Flank pain Abdominal pain, unspecified site documented in this encounter Additional Health Concerns Infection Onset Date Last Indicated Resolved Time CoV-Risk 02/28/2021 02/28/2021 03/10/2021 1:41 AM EDT documented as of this encounter Care Teams Director Medical Economics Relationship Specialty Start Date End Date Ramirez Wilhelm DO PCP - General 05/07/17 10/13/24 Ramirez Wilhelm DO 179 [facility] [place] [address] PCP - General Internal Medicine 10/14/24 Ramirez Wilhelm DO Historical LMR Provider 05/07/17 Estefany Jackson NP 100 [facility] 340 [place] [address] Historical LMR Provider 05/07/17 2 Belen Olvera MD [address] [address] Historical LMR Provider 05/07/17 Laurie Lopez PIGMENT SUPPLIER [address] [place] [address] C [address] Historical LMR Provider 05/07/17 2 Fide Atkinson NP 21 [place] [address] [email or web address] Historical LMR Provider 05/07/17 2 Summer Marrufo MD 15 [facility], 2nd [place] [address] Historical LMR Provider 05/07/17 Carlyle Ayon MD [address] [place] [address] 202 [place] [address] Historical LMR Provider 05/07/17 07/30/21 Camron Richey MD [address] [address] Historical LMR Provider 05/07/17 07/30/21 Laura Nicholas, JAMAICACS Historical LMR Provider 05/07/17 07/30/21 Ben Marci KIRSTEN Wiggins [address] [place] [address] Historical LMR Provider 05/07/17 2 Ramirez Wilhelm DO 179 [place] [address] Insurance Assigned Provider 11/23/18 05/01/20 Ramirez Wilhelm DO 179 [place] [address] Insurance Assigned Provider 05/29/20 10/28/22 documented as of this encounter Additional Source Comments The information contained in this document represents components of the legal health record. It is not the complete legal health record.[facility]
--- OUTSIDE RECORDS SUMMARY | 2024-10-21 19:11 | XMS_ITS | Encounter Summary ---
Author Organization [facility] Address [address] [facility] [address] [place] [address] Phone Care Team Providers Care Last Pattern Grader Name Role Phone Ramirez Wilhelm DO Unavailable Estefany Jackson ORDAINED MINISTER Unavailable Belen Olvera MD Unavailable Laurie Lopez ORDAINED MINISTER Unavailable Fide Atkinson NP Unavailable Summer Marrufo MD Unavailable Carlyle Ayon MD Unavailable Camron Richey MD Unavailable [phone] Laura Nicholas RDCS Unavailable [email or web address] Marci Contreras ORDAINED MINISTER Unavailable [phone] Ramirez Wilhelm DO Primary Care Provider +-[phone] Ramirez Wilhelm DO Unavailable Ramirez Wilhelm DO Unavailable + Ramirez Wilhelm DO Primary Care Provider +[phone] Encounter Details Date Type Department Care Team (Late st Contact Info) Description 11/05/2018 Ancillary Orders Virtual Department 30 [place] [address] Ramirez Wilhelm DO 179 [facility] [place] [address] [place] [address] Breast screening Social History Tobacco Use Types [...] Description 01/28/2025 1:45 PM EDT Office Visit [facility] [address] [place] [address] 301 [place] [address] Jimy Morales MD 22 [facility], [address] [place] [address] [email or web address] documented as of this encounter Results * BI MAMMOGRAM SCREENING WITH TOMOSYNTHESIS WITH CAD (BILATERAL) (11/07/2018 2:27 PM EDT) Anatomical Region Laterality Modality Breast Left, Breast Right, Breast Bilateral Bila teral Mammography 11/07/2018 2:59 PM EDT Impressions 11/07/2018 3:01 PM EDT No mammographic evidence of malignancy. BI-RADS CATEGORY: 1 - Negative. DENSITY: ??The breast tissue is heterogeneously dense, an appearance which lowers the sensitivity of mammography. ?? POS - CDHMAMA Narrative 11/07/2018 3:01 PM EDT Standard digital full-field 2-D C view and two-plane tomographic imaging was performed and compared with multiple prior studies, most recently 08/20/2017, with utilization of computer-aided detection. The breast parenchyma is heterogeneously dense, somewhat limiting mammographic sensitivity. The stromal markings are essentially unchanged in overall appearance and distribution. No dominant spiculated mass, suspicious clustered microcalcifications, or focal zone of pathologic skin thickening or retraction are noted to have arisen in the interim. ? Procedure Note Zita Maier MD - 11/07/2018 Standard digital full-field 2-D C view and two-plane tomographic imagingwas performed and compared with multiple prior studies, most [id number]/29/2018, with utilization of computer-aided detection. The breast parenchyma is heterogeneously dense, somewhat limitingmammographic sensitivity. The stromal markings are essentially unchangedin overall appearance and distribution. No dominant spiculated mass,suspicious clustered microcalcifications, or focal zone of pathologic skinthickening or retraction are noted to have arisen in the interim. IMPRESSION: No mammographic evidence of malignancy. BI-RADS CATEGORY: 1 - Negative. DENSITY: The breast tissue is heterogeneously dense, an appearance whichlowers the sensitivity of mammography. POS - CDHMAMA Ramirez Wilhelm DO IMG MG EXAMS documented in this encounter Visit Diagnoses Diagnosis Breast screening Breast screening, unspecified Breast screening Breast screening, unspecified documented in this encounter Additional Health Concerns Infection Onset Date Last Indicated Resolved Time CoV-Risk 02/28/2021 02/28/2021 03/10/2021 1:41 AM EDT documented as of this encounter Care Teams Last Pattern Grader Relationship Specialty Start Date End Date Ramirez Wilhelm DO PCP - General 05/07/17 10/13/24 Ramirez Wilhelm DO 179 [facility] [place] [address] PCP - General Internal Medicine 10/14/24 Ramirez Wilhelm DO Historical LMR Provider 05/07/17 Estefany Jackson NP [address] [place] [address] Historical LMR Provider 05/07/17 2 Belen Olvera MD [address] [place] [address] Historical LMR Provider 05/07/17 Laurie Lopez NP [address] [place] [address] Historical LMR Provider 05/07/17 2 Fide Atkinson NP 21 [place] [address] [email or web address] Historical LMR Provider 05/07/17 2 Summer Marrufo MD [address] [facility], 2nd [place] [address] Historical LMR Provider 05/07/17 Carlyle Ayon MD [address] [place] [address] Historical LMR Provider 05/07/17 07/30/21 Camron Richey MD [address] [address] Historical LMR Provider 05/07/17 07/30/21 Laura Nicholas, [place] Historical LMR Provider 05/07/17 07/30/21 Marci Contreras NP [address] [place] [address] Historical LMR Provider 05/07/17 2 Ramirez Wilhelm DO 179 [place] [address] [email or web address] Insurance Assigned Provider 11/23/18 05/01/20 Ramirez Wilhelm DO 179 [place] [address] [email or web address] Insurance Assigned Provider 05/29/20 10/28/22 documented as of this encounter Additional Source Comments The information contained in this document represents components of the legal health record. It is not the complete legal health record.[facility]
--- OUTSIDE RECORDS SUMMARY | 2024-10-21 19:11 | XMS_ITS | Encounter Summary ---
Author Organization [facility] Address [address] [facility] [address] [place] [address] Phone Care Team Providers Care Oem Sales Manager Name Role Phone Choco Ramirez Le DO Unavailable Estefany Jackson ARMHOLE BASTER HAND Unavailable [phone] Belen Olvera MD Unavailable [phone] Laurie Lopez ARMHOLE BASTER HAND Unavailable [phone] Fide Atkinson NP Unavailable Summer Marrufo MD Unavailable [phone] Carlyle Ayon MD Unavailable Camron Richey MD Unavailable [phone] Laura Nicholas RDCS Unavailable [email or web address] Marci Contreras ARMHOLE BASTER HAND Unavailable [phone] Ramirez Wilhelm DO Primary Care Provider +[phone] Ramirez Wilhelm DO Unavailable + Ramirez Wilhelm DO Unavailable + Ramirez Wilhelm DO Primary Care Provider + Reason for Referral * MRI/CAT Scan - Closed Specialty Diagnoses / Procedures Referred By Ham donovan Referred To Contact Radiology Diagnoses LLQ pain Procedures CT Abdomen/Pelvis Angie October, ABENA Beth. [address] [place] [address] Referral ID Status Reason Start Date Expiration Date Visits Re quested Visits Authorized [id number] Closed 04/17/2018 06/15/2018 1 1 Encounter Details Date Type Department Care Team (Late st Contact Info) Description 04/19/2018 Ancillary Orders Virtual Department 30 [place] [address] Alfreda Adams PA-C [address] [place] [address] LLQ pain Social History Tobacco Use Types Packs/Day Years Used Date Smoking Tobacco: Never Assessed Sex and Gender Information Value Date Recorded Sex Assigned at Not on file Gender Identity Not on file Sexual Orientation Not on file documented as of this encounter Plan of Treatment Upcoming Encounters Date Type Department Care Team (Late Contact Info) Description 01/28/2025 1:45 PM EDT Office Visit [facility] [address] [place] [address] Jimy Morales MD [address] [facility], [address] [place] [address] [email or web address] documented as of this encounter Results * CT ABDOMEN/PELVIS WITH CONTRAST (04/19/2018 3:11 PM EDT) Anatomical Region Laterality Modality Abdomen, Pelvis Computed Tomogra phy 04/19/2018 3:23 PM EDT Impressions 04/19/2018 3:34 PM EDT 1. Epiploic appendagitis lateral to distal descending colon without abscess formation. 2. Otherwise essentially normal CT abdomen and pelvis. TOTAL CTDIvol: 8.7 mGy POS - [id number] Narrative 04/19/2018 3:34 PM EDT Automated Exposure Control. Multiplanar reconstructions. Oral and IV contrast. Compare 03/14/2016 FINDINGS: The colon is well opacified and there is no evidence of diverticulosis/diverticulitis. Instead, in the left lower quadrant at about the level of the iliac crest, there is a focal ovoid area of fat density surrounded by mild filtration lying along the lateral border of the distal descending colon. The appearance is classic for epiploic appendagitis. No other bowel pathology is apparent; no evidence of inflammatory bowel disease, bowel mass or obstruction. Normal appendix well-visualized. Small bowel and stomach are unremarkable. Tiny hepatic cysts are unchanged. No solid liver lesions or enlargement. Gallbladder, biliary tree, pancreas, spleen and adrenals unremarkable. No kidney stones, hydronephrosis or renal masses. No signs of pyelonephritis. Ureters and bladder unremarkable. No gynecologic pathology. Few scattered mesenteric lymph nodes but no worrisome adenopathy. No ascites. Lung bases and pleural spaces clear. No acute or worrisome bony abnormalities. Procedure Note Iraj Ott MD - 04/19/2018 Automated Exposure Control. Multiplanar reconstructions. Oral and IV contrast. Compare 03/14/2016 FINDINGS: The colon is well opacified and there is no evidence ofdiverticulosis/diverticulitis. Instead, in the left lower quadrant at about the level of the iliac crest,there is a focal ovoid area of fat density surrounded by mild filtrationlying along the lateral border of the distal descending colon. Theappearance is classic for epiploic appendagitis. No other bowel pathology is apparent; no evidence of inflammatory boweldisease, bowel mass or obstruction. Normal appendix well-visualized. Small bowel and stomach are unremarkable. Tiny hepatic cysts are unchanged. No solid liver lesions or enlargement. Gallbladder, biliary tree, pancreas, spleen and adrenals unremarkable. No kidney stones, hydronephrosis or renal masses. No signs ofpyelonephritis. Ureters and bladder unremarkable. No gynecologic pathology. Few scattered mesenteric lymph nodes but no worrisome adenopathy. No ascites. Lung bases and pleural spaces clear. No acute or worrisome bony abnormalities. IMPRESSION: 1. Epiploic appendagitis lateral to distal descending colon withoutabscess formation. 2. Otherwise essentially normal CT abdomen and pelvis. TOTAL CTDIvol: 8.7 mGy POS - [id number] October Angie PA-C IMG CT ABD/PELVIS documented in this encounter Visit Diagnoses Diagnosis LLQ pain Abdominal pain, left lower quadrant LLQ pain Abdominal pain, left lower quadrant documented in this encounter Additional Health Concerns Infection Onset Date Last Indicated Resolved Time CoV-Risk 02/28/2021 02/28/2021 03/10/2021 1:41 AM EDT documented as of this encounter Care Teams Oem Sales Manager Relationship Specialty Start Date End Date Ramirez Wilhelm DO PCP - General 05/07/17 10/13/24 Ramirez Wilhelm DO [address] [place] [address] PCP - General Internal Medicine 10/14/24 Ramirez Wilhelm DO Historical LMR Provider 05/07/17 Estefany Jackson NP [address] [place] [address] Historical LMR Provider 05/07/17 2 Belen Olvera MD [address] [place] [address] [address] [place] [address] Historical LMR Provider 05/07/17 Laurie Lopez NP [address] [place] [phone] Historical LMR Provider 05/07/17 2 Fide Atkinson NP 21 [place] [address] [email or web address] Historical LMR Provider 05/07/17 2 Summer Marrufo MD [address] [facility], 2nd [place] [address] Historical LMR Provider 05/07/17 Carlyle Ayon MD [address] [place] [address] Historical LMR Provider 05/07/17 07/30/21 Camron Richey MD [address] [address] Historical LMR Provider 05/07/17 07/30/21 Laura Nicholas, RDCS Historical LMR Provider 05/07/17 07/30/21 Marci Contreras NP [address] [place] [address] Historical LMR Provider 05/07/17 2 Ramirez Wilhelm DO [address] [place] [address] Insurance Assigned Provider 11/23/18 05/01/20 Ramirez Wilhelm DO [address] [place] [address] Insurance Assigned Provider 05/29/20 10/28/22 documented as of this encounter Additional Source Comments The information contained in this document represents components of the legal health record. It is not the complete legal health record.[facility]
--- OUTSIDE RECORDS SUMMARY | 2024-10-21 19:11 | XMS_ITS | Encounter Summary ---
Author Organization [facility] Address [address] [facility] [address] [place] [address] Phone Care Team Providers Care Stator Connector Name Role Phone Choco Ramirez Le DO Unavailable Estefany Jackson MACHINE SHOP WORKER Unavailable [phone] Belen Olvera MD Unavailable [phone] Laurie Lopez MACHINE SHOP WORKER Unavailable [phone] Fide Atkinson NP Unavailable [phone] Summer Marrufo MD Unavailable [phone] Carlyle Ayon MD Unavailable Camron Richey MD Unavailable [phone] Laura Nicholas RDCS Unavailable [email or web address] Marci Contreras MACHINE SHOP WORKER Unavailable [phone] Ramirez Wilhelm DO Primary Care Provider +[phone] Ramirez Wilhelm DO Unavailable + Ramirez Wilhelm DO Unavailable + Ramirez Wilhelm DO Primary Care Provider + Encounter Details Date Type Department Care Team (Late st Contact Info) Description 04/19/2018 Procedure Pass [facility], Ct Scan - [address] [address] Social History Tobacco Use Types Packs/Day Years Used Date Smoking Tobacco: Never Assessed Sex and Gender Information Value Date Recorded Sex Assigned at Not on file Gender Identity Not on file Sexual Orientation Not on file documented as of this encounter Plan of Treatment Upcoming Encounters Date Type Department Care Team (Late st Contact Info) Description 01/28/2025 1:45 PM EDT Office Visit [facility] [address] [place] [address] [address] [place] [address] Jimy Morales MD 22 [facility], [facility] 301 [place] [address] documented as of this encounter Visit Diagnoses Not on filedocumented in this encounter Additional Health Concerns Infection Onset Date Last Indicated Resolved Time CoV-Risk 02/28/2021 02/28/2021 03/10/2021 1:41 AM EDT documented as of this encounter Care Teams Stator Connector Relationship Specialty Start Date End Date Ramirez Wilhelm DO PCP - General 05/07/17 10/13/24 Ramirez Wilhelm DO [address] [facility] [place] [address] [place] [address] PCP - General Internal Medicine 10/14/24 Ramirez Wilhelm DO Historical LMR Provider 05/07/17 Estefany Jackson NP [address] [place] [address] 340 [place] [address] Historical LMR Provider 05/07/17 2 Belen Olvera MD [address] [facility], [address] [place] [address] [email or web address] Historical LMR Provider 05/07/17 Laurie Lopez NP [address] [place] [address] Historical LMR Provider 05/07/17 2 Fide Atkinson NP 21 [place] [address] [email or web address] Historical LMR Provider 05/07/17 2 Summer Marrufo MD 15 [facility], [address] [place] [address] Historical LMR Provider 05/07/17 Carlyle Ayon MD [address] [address] Historical LMR Provider 05/07/17 07/30/21 Camron Richey MD [address] [address] Historical LMR Provider 05/07/17 07/30/21 Laura Nicholas, [place] Historical LMR Provider 05/07/17 07/30/21 Marci Contreras NP [address] [place] [address] Historical LMR Provider 05/07/17 2 Ramirez Wilhelm DO [address] [place] [address] [place] [address] Insurance Assigned Provider 11/23/18 05/01/20 Ramirez Wilhelm DO [address] [place] [address] Insurance Assigned Provider 05/29/20 10/28/22 documented as of this encounter Additional Source Comments The information contained in this document represents components of the legal health record. It is not the complete legal health record.[facility]
--- OUTSIDE RECORDS SUMMARY | 2024-10-21 19:11 | XMS_ITS | Encounter Summary ---
Author Organization [facility] Address [address] [facility] [address] [place] [address] Phone Care Team Providers Care Dirt Bike Mechanic Name Role Phone Choco Ramirez Le DO Unavailable Estefany Jackson LIQUOR BRIDGE OPERATOR HELPER Unavailable Belen Olvera MD Unavailable Laurie Lopez LIQUOR BRIDGE OPERATOR HELPER Unavailable Fide Atkinson NP Unavailable Summer Marrufo MD Unavailable Carlyle Ayon MD Unavailable Camron Richey MD Unavailable [phone] Laura Nicholas RDCS Unavailable [email or web address] Marci Contreras LIQUOR BRIDGE OPERATOR HELPER Unavailable [phone] Ramirez Wilhelm DO Primary Care Provider +[phone] Ramirez Wilhelm DO Unavailable Ramirez Wihlelm DO Primary Care Provider +[phone] Encounter Details Date Type Department Care Team (Latest Contact Info) Description 09/15/2020 Transcribe Orders [facility] 30 [place] [address] Sheri Ray PA [address] [place] [address] [place] [address] Right knee pain, unspecified chronicity (Primary Dx) Social History Tobacco Use Types [...] Description 01/28/2025 1:45 PM EDT Office Visit [facility] [address] [place] [address] [address] [place] [address] Jimy Morales MD 22 [facility], [facility] 301 [place] [address] [email or web address] documented as of this encounter Results * XR KNEE 4 OR MORE VIEWS (RIGHT) (09/21/2020 10:05 AM EST) Anatomical Region Laterality Modality Knee Right Computed Radiogr aphy 09/21/2020 10:0 7 AM EST Impressions 09/21/2020 10:09 AM EST No findings to account for the patient's pain. Narrative 09/21/2020 10:09 AM EST HISTORY: ??As above. COMPARISON: 07/29/2014. RIGHT KNEE RADIOGRAPH FINDINGS: 4 images obtained with weightbearing. No acute fracture or malalignment. Joint spaces are preserved. No destructive or suspicious bone lesions. No joint effusion. No soft tissue swelling. Procedure Note Bill Romo MD - 09/21/2020 HISTORY: As above. COMPARISON: 07/29/2014. RIGHT KNEE RADIOGRAPH FINDINGS: 4 images obtained with weightbearing. No acute fracture or malalignment. Joint spaces are preserved. Nodestructive or suspicious bone lesions. No joint effusion. No soft tissueswelling. IMPRESSION: No findings to account for the patient's pain. Sheri GALLARDO IMG XR LOWER EXTREM ITY documented in this encounter Visit Diagnoses Diagnosis Right knee pain, unspecified chronicity- Primary Right knee pain, unspecified chronicity documented in this encounter Additional Health Concerns Infection Onset Date Last Indicated Resolved Time CoV-Risk 02/28/2021 02/28/2021 03/10/2021 1:41 AM EDT documented as of this encounter Care Teams Dirt Bike Mechanic Relationship Specialty Start Date End Date Ramirez Wilhelm DO PCP - General 05/07/17 10/13/24 Ramirez Wilhelm DO 179 [place] [address] PCP - General Internal Medicine 10/14/24 Ramirez Wilhelm DO Historical LMR Provider 05/07/17 Estefany Jackson NP [address] [place] [address] Historical LMR Provider 05/07/17 2 Belen Olvera MD [address] [place] [address] [address] [place] [address] Historical LMR Provider 05/07/17 Laurie Lopez NP [address] [place] [phone] Historical LMR Provider 05/07/17 2 Fide Atkinson NP 21 [place] [address] [email or web address] Historical LMR Provider 05/07/17 2 Summer Marrufo MD [address] [facility], 2nd [place] [address] Historical LMR Provider 05/07/17 Carlyle Ayon MD [address] [place] [address] Historical LMR Provider 05/07/17 07/30/21 Camron Richey MD [address] [address] Historical LMR Provider 05/07/17 07/30/21 Laura Nicholas, [place] Historical LMR Provider 05/07/17 07/30/21 Marci Contreras NP [address] [place] [address] Historical LMR Provider 05/07/17 2 Ramirez Wilhelm DO [address] [place] [address] [place] [address] Insurance Assigned Provider 05/29/20 10/28/22 documented as of this encounter Additional Source Comments The information contained in this document represents components of the legal health record. It is not the complete legal health record.[facility]
--- OUTSIDE RECORDS SUMMARY | 2024-10-21 19:11 | XMS_ITS | Encounter Summary ---
Author Organization [facility] Address [address] [place] [address] Phone Care Team Providers Care Solutions Operator Name Role Phone HeatherRamirez schmid Unavailable Belen Olvera MD Unavailable [phone] Ramirez Wilhelm DO Primary Care Provider [phone] Ramirez Wilhelm DO Primary Care Provider [phone] Encounter Details Date Type Department Care Team (Late st Contact Info) Description 04/30/2024 Procedure [facility] - [address] [place] [address] Social History Tobacco Use Types Packs/Day Years [...] Description 01/28/2025 1:45 PM EDT Office Visit [facility] 22 [facility] 301 [place] [address] Jimy Morales MD 22 [facility], [facility] 301 [place] [address] documented as of this encounter Visit Diagnoses Not on filedocumented in this encounter Care Teams Solutions Operator Relationship Specialty Start Date End Date Ramirez Wilhelm DO PCP - General 05/07/17 10/13/24 Ramirez Wilhelm DO [address] [place] [address] [place] [address] PCP - General Internal Medicine 10/14/24 Ramirez Wilhelm DO Historical LMR Provider 05/07/17 Belen Olvera MD [address] [place] [address], [address] [place] [address] Historical LMR Provider 05/07/17 documented as of this encounter Additional Source Comments The information contained in this document represents components of the legal health record. It is not the complete legal health record.[facility]
--- OUTSIDE RECORDS SUMMARY | 2024-10-21 19:11 | XMS_ITS | Encounter Summary ---
Author Organization [facility] Address [address] [place] [address] Phone Care Team Providers Care Camera Repair Technician Name Role Phone Ramirez Wilhelm DO Unavailable Belen Olvera MD Unavailable [phone] Bigda, Ramriez A DO Primary Care Provider [phone] Bigda, Ramirez A DO Unavailable Bigda, Ramirez A DO Primary Care Provider [phone] Encounter Details Date Type Department Care Team (Latest Contact Info) Description 02/27/2022 Transcribe Orders Virtual Department 30 [place] [address] Sheri Ray PA [address] [place] [address] [place] [address] Pleuritic chest pain (Primary Dx); Pleurodynia Social History Tobacco Use Types Packs/Day Years [...] 01/28/2025 1:45 PM EDT Office Visit [facility] [address] [place] [address] Dr Foss [address] [place] [address] Jimy Morales MD 22 [facility], [address] [place] [address] [email or web address] documented as of this encounter Results * XR RIBS 4 OR MORE VIEWS WITH PA CHEST (BILATERAL) (03/02/2022 9:51 AM EDT) Anatomical Region Laterality Modality Chest Computed Radiogr aphy 03/03/2022 3:34 PM EDT Impressions 03/03/2022 3:35 PM EDT No displaced rib fracture. Narrative 03/03/2022 3:35 PM EDT XR RIBS 4 OR MORE VIEWS WITH PA CHEST (BILATERAL) COMPARISON: November 12, 2015 FINDINGS: No displaced rib fracture. PA evaluation of the chest demonstrates no focal consolidation, pleural effusion, pulmonary edema, or pneumothorax. Cardiomediastinal silhouette is normal. Procedure Note Yovany Smith MD, LIZBETH - 03/03/2022 XR RIBS 4 OR MORE VIEWS WITH PA CHEST (BILATERAL) COMPARISON: November 12, 2015 FINDINGS: No displaced rib fracture. PA evaluation of the chest demonstrates no focal consolidation, pleuraleffusion, pulmonary edema, or pneumothorax. Cardiomediastinal silhouetteis normal. IMPRESSION: No displaced rib fracture. Sheri Ray PA IMG XR CHEST documented in this encounter Visit Diagnoses Diagnosis Pleuritic chest pain- Primary Painful respiration Pleurodynia Painful respiration Pleurodynia Painful respiration documented in this encounter Care Teams Camera Repair Technician Relationship Specialty Start Date End Date Ramirez Wilhelm DO [email or web address] PCP - General 05/07/17 10/13/24 Ramirez Wilhelm DO [address] [place] [address] [place] [address] PCP - General Internal Medicine 10/14/24 Ramirez Wilhelm DO Historical LMR Provider 05/07/17 Belen Olvera MD [address] [place] [address] [address] [place] [address] [email or web address] Historical LMR Provider 05/07/17 Ramirez Wilhelm DO [address] [place] [address] [place] [address] Insurance Assigned Provider 05/29/20 10/28/22 documented as of this encounter Additional Source Comments The information contained in this document represents components of the legal health record. It is not the complete legal health record.[facility]
--- OUTSIDE RECORDS SUMMARY | 2024-10-21 19:11 | XMS_ITS | Encounter Summary ---
Author Organization [facility] Address [address] [place] [address] Phone Care Team Providers Care Aviation Support Equipment Repairer Name Role Phone HeatherRamirez schmid Unavailable Belen Olvera MD Unavailable [phone] Ramirez Wilhelm DO Primary Care Provider [phone] Ramirez Wilhelm DO Primary Care Provider [phone] Encounter Details Date Type Department Care Team (Late st Contact Info) Description 04/30/2024 Procedure Pass [facility] - [address] [place] [address] Social History Tobacco Use Types Packs/Day Years [...] Description 01/28/2025 1:45 PM EDT Office Visit [facility] 22 [facility] 301 [place] [address] Jimy Morales MD 22 [facility], [facility] 301 [place] [address] documented as of this encounter Visit Diagnoses Not on filedocumented in this encounter Care Teams Aviation Support Equipment Repairer Relationship Specialty Start Date End Date Ramirez Wilhelm DO PCP - General 05/07/17 10/13/24 Ramirez Wilhelm DO [address] [place] [address] [place] [address] PCP - General Internal Medicine 10/14/24 Ramirez Wilhelm DO Historical LMR Provider 05/07/17 Belen Olvera MD [address] [place] [address], [address] [place] [address] [email or web address] Historical LMR Provider 05/07/17 documented as of this encounter Additional Source Comments The information contained in this document represents components of the legal health record. It is not the complete legal health record.[facility]
--- OUTSIDE RECORDS SUMMARY | 2024-10-21 19:11 | XMS_ITS | Encounter Summary ---
Author Organization [facility] Address [address] [facility] [address] [place] [address] Phone Care Team Providers Care Hair Specialist Name Role Phone Choco Ramirez Le DO Unavailable Estefany Jackson UNDERGROUND SUPERVISOR Unavailable [phone] Belen Olvera MD Unavailable [phone] Laurie Lopez UNDERGROUND SUPERVISOR Unavailable Fide Atkinson UNDERGROUND SUPERVISOR Unavailable Summer Marrufo MD Unavailable Carlyle Ayon MD Unavailable Camron Richey MD Unavailable [phone] Laura Nicholas RDCS Unavailable [email or web address] Marci Contreras UNDERGROUND SUPERVISOR Unavailable [phone] Ramirez Wilhelm DO Primary Care Provider +[phone] Bigda, Ramirez Le DO Unavailable Bigsharmaine, Ramirez Rey DO Unavailable Bigda, Ramirez Le DO Primary Care Provider [phone] Encounter Details Date Type Department Care Team (Late st Contact Info) Description 11/01/2018 Transcribe Orders [facility] Laboratory 30 [place], [place] [id number] Aimee Martinez MD [address] [place], [place] [phone] Oral lichen planus (Primary Dx) Social History Tobacco Use Types [...] Description 01/28/2025 1:45 PM EDT Office Visit [facility] [address] [place] [address] 301 [place] [address] Jimy Morales MD 22 [facility], [address] [place], [place] [id number] [email or web address] documented as of this encounter Results * Hepatitis C viral load (PCR) (11/01/2018 2:36 PM EDT) HCV RNA DETECT/QNT Undetected Undetected IU/mL [facility] Comment: (NOTE) Result in log IU/mL is Undetected. ADDITIONAL INFORMATION The quantification range of this assay is 15 to 100,000,000 IU/mL (1.18 log to 8.00 log IU/mL). Testing was performed using the adrian HCV test ([employer] with the adrian 6800 System. Blood (Blood) 11/01/2018 2:3 6 PM EDT 11/01/2018 2:39 PM EDT Aimee Martinez MD NON CULTURE MICROBI OLOGY [facility] [address] [place] [address] documented in this encounter Visit Diagnoses Diagnosis Oral lichen planus- Primary documented in this encounter Additional Health Concerns Infection Onset Date Last Indicated Resolved Time CoV-Risk 02/28/2021 02/28/2021 03/10/2021 1:41 AM EDT documented as of this encounter Care Teams Hair Specialist Relationship Specialty Start Date End Date ChocoRamirezDO PCP - General 05/07/17 10/13/24 Ramirez Wilhelm ReyDO 179 [place] [address] PCP - General Internal Medicine 10/14/24 Ramirez Wilhelm DO Historical LMR Provider 05/07/17 Estefany Jackson, KIRSTEN [address] [address] Historical LMR Provider 05/07/17 2 Belen Olvera MD [address] [address] Historical LMR Provider 05/07/17 Laurie Lopez UNDERGROUND SUPERVISOR [address] [place] [address] Historical LMR Provider 05/07/17 2 Fide Atkinson NP 21 [place] [address] [email or web address] Historical LMR Provider 05/07/17 2 Summer Marrufo MD 15 [facility], 2nd [place] [address] Historical LMR Provider 05/07/17 Carlyle Ayon MD [address] [place] [address] 202 [place] [address] Historical LMR Provider 05/07/17 07/30/21 Camron Richey MD [address] [place] [address] 102 [place] [address] Historical LMR Provider 05/07/17 07/30/21 Laura Nicholas, CS Historical LMR Provider 05/07/17 07/30/21 Marci Contreras NP [address] [place] [address] Historical LMR Provider 05/07/17 2 Ramirez Wilhelm DO 179 [place] [address] Insurance Assigned Provider 11/23/18 05/01/20 Ramirez Wilhelm DO 179 [place] [address] Insurance Assigned Provider 05/29/20 10/28/22 documented as of this encounter Additional Source Comments The information contained in this document represents components of the legal health record. It is not the complete legal health record.[facility]
--- OUTSIDE RECORDS SUMMARY | 2024-10-21 19:11 | XMS_ITS | Encounter Summary ---
Author Organization [facility] Address [address] [facility] [address] [place] [address] Phone Care Team Providers Care Flatcar Whacker Name Role Phone HeatherRamirez schmid Rey DO Unavailable Estefany Jackson COGNOS BI ADMINISTRATOR Unavailable Belen Olvera MD Unavailable [phone] Laurie Lopez COGNOS BI ADMINISTRATOR Unavailable Fide Atkinson NP Unavailable Summer Marrufo MD Unavailable Carlyle Ayon MD Unavailable Camron Richey MD Unavailable [phone] Laura Nicholas RDCS Unavailable [email or web address] Marci Contreras COGNOS BI ADMINISTRATOR Unavailable [phone] Ramirez Wilhelm DO Primary Care Provider +[phone] Bigda, Ramirez Le DO Unavailable Bigsharmaine, Ramirez Rey DO Unavailable + Bigda, Ramirez Le DO Primary Care Provider + Encounter Details Date Type Department Care Team (Latest Contact Info) Description 04/19/2018 Transcribe Orders [facility] Laboratory 30 [place] [address] Alfreda Adams PA-C [address] [place] [address] Abdominal pain, left lower quadrant (Primary Dx) Social History Tobacco Use Types [...] Description 01/28/2025 1:45 PM EDT Office Visit [facility] [address] [place] [address] 301 [place] [address] Jimy Morales MD 22 [facility], [address] [place], [place] [phone] [email or web address] documented as of this encounter Results * (ABNORMAL) Comprehensive metabolic panel (04/19/2018 11:34 AM EDT) SODIUM 139 133 - 146 mmol/L [facility] POTASSIUM 3.9 3.3 - 5.1 mmol/L [facility] CHLORIDE 100 96 - 108 mmol/L [facility] CO2 27 21 - 35 mmol/L [facility] BUN 13 6 - 19 mg/dL [facility] CREATININE 0.70 0.5 - 1.5 mg/dL [facility] GLUCOSE 104(H) 70 - 99 mg/dL [facility] ALBUMIN 4.1 3.9 - 4.8 g/dL [facility] TOTAL PROTEIN 7.6 6.5 - 8.0 g/dL [facility] CALCIUM 9.7 8.4 - 10.3 mg/dL [facility] ALKALINE PHOSPHATASE 70 39 - 117 U/L [facility] TOTAL BILIRUBIN 0.4 0.0 - 1.2 mg/dL [facility] AST 16 0 - 37 U/L [facility] ALT 19 0 - 40 U/L [facility] GLOBULIN 3.5 1 - 4.8 g/dL [facility] EGFR 95 >59 mL/min/1.7 3m2 [facility] Comment:If patient is black, multiply result by 1.159. Estimated glomerular filtration rate calculated using the CKD-EPI equation. ANION GAP 16 10 - 20 mmol/L [facility] Blood 04/19/2018 11:3 4 AM EDT 04/19/2018 11:37 AM EDT Alfreda Adams PA-C LAB BLOOD ORDERABLES [facility] 30 [place] [address] * (ABNORMAL) CBC and differential (04/19/2018 11:34 AM EDT) WBC 8.35 3.40 - 11.20 K/uL [facility] RBC 4.74 3.80 - 4.80 M/uL [facility] HGB 13.7 12.0 - 15.0 g/dL [facility] HCT 40.8 36.0 - 46.0 % [facility] PLT 233 130 - 400 K/uL [facility] MCV 86.1 79.0 - 98.0 fL [facility] MCH 28.9 27.0 - 34.8 pg [facility] MCHC 33.6 31.5 - 36.0 g/dL [facility] RDW 12.3 10.8 - 14.6 % [facility] MPV 11.0 9.4 - 12.4 fl [facility] NRBC 0.00 /100 WBCs [facility] ABSOLUTE NRBC 0.00 K/uL [facility] DIFF METHOD Auto [facility] NEUTS 68.7 45.30 - 77.70 % [facility] LYMPHS 18.0 12.30 - 39.70 % [facility] MONOS 11.1 4.10 - 12.80 % [facility] EOS 1.3 0 - 7.2 % [facility] BASOS 0.5 0 - 2.80 % [facility] Granulocytes, immature (%) 0.4 0.0 - 0.9 % [facility] ABSOLUTE NEUTS 5.74 1.40 - 7.70 K/uL [facility] ABSOLUTE LYMPHS 1.50 0.60 - 3.20 K/uL [facility] ABSOLUTE MONOS 0.93(H) 0.11 - 0.59 K/uL [facility] ABSOLUTE EOS 0.11 0.01 - 0.50 K/uL [facility] ABSOLUTE BASOS 0.04 0.00 - 0.08 K/uL [facility] Granulocytes, immature 0.03 0.00 - 0.05 K/uL [facility] Blood 04/19/2018 11:3 4 AM EDT 04/19/2018 11:37 AM EDT October Angie KRAFT LAB BLOOD ORDERABLES [facility] [address] [place] [address] documented in this encounter Visit Diagnoses Diagnosis Abdominal pain, left lower quadrant- Primary documented in this encounter Additional Health Concerns Infection Onset Date Last Indicated Resolved Time CoV-Risk 02/28/2021 02/28/2021 03/10/2021 1:41 AM EDT documented as of this encounter Care Teams Flatcar Whacker Relationship Specialty Start Date End Date Ramirez Wilhelm DO PCP - General 05/07/17 10/13/24 Ramirez Wilhelm DO 179 [facility] [place] [address] PCP - General Internal Medicine 10/14/24 Ramirez Wilhelm DO Historical LMR Provider 05/07/17 Estefany Jacskon NP [address] [place] [address] 340 [place] [address] Historical LMR Provider 05/07/17 2 Belen Olvera MD [address] [place] [address] 102 [place] [address] Historical LMR Provider 05/07/17 Laurie Lopez NP [address] [place] [address] Historical LMR Provider 05/07/17 2 Fide Atkinson NP 21 [place] [address] [email or web address] Historical LMR Provider 05/07/17 2 Summer Marrufo MD 15 [facility] [place] [address] Historical LMR Provider 05/07/17 Carlyle Ayon MD [address] [address] Historical LMR Provider 05/07/17 07/30/21 Camron Richey MD [address] [address] Historical LMR Provider 05/07/17 07/30/21 Laura Nicholas, [place] Historical LMR Provider 05/07/17 07/30/21 Marci Contreras NP [address] [place] [address] Historical LMR Provider 05/07/17 2 Ramirez Wilhelm DO 179 [facility] [place] [address] [email or web address] Insurance Assigned Provider 11/23/18 05/01/20 Ramirez Wilhelm DO [address] [place] [address] [email or web address] Insurance Assigned Provider 05/29/20 10/28/22 documented as of this encounter Additional Source Comments The information contained in this document represents components of the legal health record. It is not the complete legal health record.[facility]
--- OUTSIDE RECORDS SUMMARY | 2024-10-21 19:11 | XMS_ITS | Encounter Summary ---
Author Organization [facility] Address [address] [place] [address] Phone Care Team Providers Care Hemodialysis Lab Technician Name Role Phone Choco Ramirez Le DO Unavailable Belen Olvera MD Unavailable [phone] Ramirez Wilhelm DO Primary Care Provider [phone] Encounter Details Date Type Department Care Team (Late st Contact Info) Description 10/21/2024 3:38 PM EDT Hospital Encounter [facility], X-Ray - [address] [place] [address] Sheri Ray PA [address] [place] [address] [place] [address] Arrived Social History Tobacco Use Types Packs/Day [...] Description 01/28/2025 1:45 PM EDT Office Visit [facility] [address] [place] [address] 301 [place] [address] Jimy Morales MD 22 [facility], [address] [place] [address] [email or web address] documented as of this encounter Procedures Procedure Name Priority Date/Time Associated Diagnosis Comments XR ABDOMEN 1 VIEW Routine 10/21/2024 3:5 9 PM EDT Painful urination documented in this encounter Results * XR ABDOMEN 1 VIEW (10/21/2024 3:59 PM EDT) Anatomical Region Laterality Modality Abdomen Computed Radiogr aphy 10/21/2024 4:42 PM EDT Impressions 10/21/2024 4:42 PM EDT Nonobstructive bowel gas pattern. Narrative 10/21/2024 4:42 PM EDT XR ABDOMEN 1 VIEW Referring clinician's provided indication for this examination in Epic: Pain COMPARISON: CT ABDOMEN/PELVIS WITH CONTRAST FINDINGS: Tubes/Lines: None Visualized lower chest: Unremarkable. Abdomen: No dilated loops of bowel. ??Mild colonic stool. Bones/Soft Tissues: No acute osseous finding. Procedure Note Laurita Urrutia MD - 10/21/2024 XR ABDOMEN 1 VIEW Referring clinician's provided indication for this examination in Epic:Pain COMPARISON: CT ABDOMEN/PELVIS WITH CONTRAST FINDINGS: Tubes/Lines: None Visualized lower chest: Unremarkable. Abdomen: No dilated loops of bowel. Mild colonic stool. Bones/Soft Tissues: No acute osseous finding. IMPRESSION: Nonobstructive bowel gas pattern. Sheri GALLARDO IMG XR ABDOMEN documented in this encounter Visit Diagnoses Diagnosis Painful urination Dysuria documented in this encounter Care Teams Hemodialysis Lab Technician Relationship Specialty Start Date End Date Ramirez Wilhelm DO [address] [place] [address] [place] [address] [email or web address] PCP - General Internal Medicine 10/14/24 Ramirez Wilhelm DO Historical LMR Provider 05/07/17 Belen Olvera MD [address] [place] [address] [email or web address] Historical LMR Provider 05/07/17 documented as of this encounter Additional Source Comments The information contained in this document represents components of the legal health record. It is not the complete legal health record.[facility]
--- OUTSIDE RECORDS SUMMARY | 2024-10-21 19:11 | XMS_ITS | Encounter Summary ---
Author Organization [facility] Address [address] [facility] [address] [place] [address] Phone Care Team Providers Care Floor Layer Tile Name Role Phone Ramirez Wilhelm DO Unavailable Estefany Jackson LORRY WEIGHER Unavailable [phone] Belen Olvera MD Unavailable [phone] Laurie Lopez LORRY WEIGHER Unavailable [phone] Fide Atkinson NP Unavailable Summer Marrufo MD Unavailable Carlyle Ayon MD Unavailable Camron Richey MD Unavailable [phone] Laura Nicholas RDCS Unavailable [email or web address] Marci Contreras LORRY WEIGHER Unavailable [phone] Ramirez Wilhelm DO Primary Care Provider +[phone] Ramirez Wilhelm DO Unavailable + Ramirez Wilhelm DO Unavailable + Ramirez Wilhelm DO Primary Care Provider + Encounter Details Date Type Department Care Team (Late st Contact Info) Description 09/26/2019 Transcribe Orders Virtual Department 30 [place] [address] Ramirez Wilhelm DO 179 [facility] [place] [address] [email or web address] RUQ pain (Primary Dx) Social History Tobacco Use [...] Description 01/28/2025 1:45 PM EDT Office Visit [facility] [address] [place] [address] 301 [place] [address] Jimy Morales MD 22 [facility], [address] [place] [address] [email or web address] documented as of this encounter Results * US Abdomen Complete (09/30/2019 11:40 AM EDT) Anatomical Region Laterality Modality Abdomen Ultrasound 09/30/2019 12:0 0 PM EDT Impressions 09/30/2019 12:02 PM EDT Normal upper abdomen ultrasound POS [id number] Narrative 09/30/2019 12:02 PM EDT Compare to CT 04/19/2018 No gallstones, gallbladder wall thickening, hyperemia or pericholecystic fluid. No biliary dilatation; CBD 5 mm. Liver and spleen homogeneous echotexture without any focal masses or enlargement. Pancreas is well-visualized and sonographically normal in appearance as are both kidneys. No hydronephrosis or renal stones/masses. No upper ascites. The upper aorta and IVC are unremarkable. Procedure Note Iraj Ott MD - 09/30/[address] 04/19/2018 No gallstones, gallbladder wall thickening, hyperemia or pericholecysticfluid. No biliary dilatation; CBD 5 mm. Liver and spleen homogeneous echotexture without any focal masses orenlargement. Pancreas is well-visualized and sonographically normal in appearance adriane both kidneys. No hydronephrosis or renal stones/masses. No upper ascites. The upper aorta and IVC are unremarkable. IMPRESSION: Normal upper abdomen ultrasound POS [id number] Ramirez Rey Choco OLIVA IMG US ABDOMEN documented in this encounter Visit Diagnoses Diagnosis RUQ pain- Primary Abdominal pain, right upper quadrant RUQ pain Abdominal pain, right upper quadrant documented in this encounter Additional Health Concerns Infection Onset Date Last Indicated Resolved Time CoV-Risk 02/28/2021 02/28/2021 03/10/2021 1:41 AM EDT documented as of this encounter Care Teams Floor Layer Tile Relationship Specialty Start Date End Date Ramirez Wilhelm DO PCP - General 05/07/17 10/13/24 Ramirez Wilhelm DO 179 [facility] [place] [address] PCP - General Internal Medicine 10/14/24 Ramirez Wilhelm DO Historical LMR Provider 05/07/17 Estefany Jackson NP [address] [place] [address] 340 [place] [address] Historical LMR Provider 05/07/17 2 Belen Olvera MD [address] [place] [address] 102 [place] [address] Historical LMR Provider 05/07/17 Laurie Lopez NP [address] [place] [phone] Historical LMR Provider 05/07/17 2 Fide Atkinson NP 21 [place] [address] [email or web address] Historical LMR Provider 05/07/17 2 Summer Marrufo MD 15 [facility], 2nd [place] [address] Historical LMR Provider 05/07/17 Carlyle Ayon MD [address] [place] [address] Historical LMR Provider 05/07/17 07/30/21 Camron Richey MD [address] [address] Historical LMR Provider 05/07/17 07/30/21 Laura Nicholas, RDCS Historical LMR Provider 05/07/17 07/30/21 Marci Contreras NP [address] [place] [address] Historical LMR Provider 05/07/17 2 Ramirez Wilhelm DO 179 [place] [address] [email or web address] Insurance Assigned Provider 11/23/18 05/01/20 Ramirez Wilhelm DO 179 [place] [address] [email or web address] Insurance Assigned Provider 05/29/20 10/28/22 documented as of this encounter Additional Source Comments The information contained in this document represents components of the legal health record. It is not the complete legal health record.[facility]
--- OUTSIDE RECORDS SUMMARY | 2024-10-21 19:11 | XMS_ITS | Encounter Summary ---
Author Organization [facility] Address [address] [facility] [address] [place] [address] Phone Care Team Providers Care Re Recording Mixer Name Role Phone Ramirez Wilhelm DO Unavailable Estefany Jackson CANDLE MOLDER HAND Unavailable [phone] Belen Olvera MD Unavailable [phone] Laurie Lopez CANDLE MOLDER HAND Unavailable [phone] Fide Atkinson NP Unavailable [phone] Summer Marrufo MD Unavailable [phone] Carlyle Ayon MD Unavailable Camron Richey MD Unavailable [phone] Laura Nicholas RDCS Unavailable [email or web address] Marci Contreras CANDLE MOLDER HAND Unavailable [phone] Ramirez Wilhelm DO Primary Care Provider +[phone] Ramirez Wilhelm DO Unavailable + Ramirez Wilhelm DO Primary Care Provider + Reason for Referral * MRI/CAT Scan - Closed Specialty Diagnoses / Procedures Referred By Ham donovan Referred To Contact Radiology Diagnoses Right knee pain, unspecified chronicity Procedures MRI Knee (Right) Sheri Ray PA [address] [facility] [place] [address] [place] [address] Referral ID Status Reason Start Date Expiration Date Visits Re quested Visits Authorized [id number] Closed 09/22/2020 09/22/2021 1 1 Encounter Details Date Type Department Care Team (Latest Contact Info) Description 09/22/2020 Transcribe Orders Virtual Department 30 [place] [address] Sheri Ray PA 6 [facility] [place] [address] [place] [address] Right knee pain, unspecified chronicity (Primary Dx) [...] Description 01/28/2025 1:45 PM EDT Office Visit [facility] [address] [place] [address] Jimy Morales MD [address] [place] [address] [email or web address] documented as of this encounter Results * MRI KNEE WITHOUT CONTRAST (RIGHT) (10/02/2020 3:02 PM EST) Anatomical Region Laterality Modality Knee Right Magnetic Resonan ce 10/03/2020 3:58 PM EDT Impressions 10/03/2020 4:02 PM EDT 1. Horizontal flap tear posterior horn medial meniscus. 2. Tiny popliteal cyst. 3. No other internal pathology is apparent. POS [id number] Narrative 10/03/2020 4:02 PM EDT TECHNIQUE: ??1.5 Yenifer scanner. Nonenhanced exam. Compare to plain films 09/21/2020 FINDINGS: A horizontal flap tear exits the inferior surface of the posterior horn of the medial meniscus. Lateral meniscus intact. Cruciate and collateral ligaments intact. There is a small, focal subchondral cyst in the anterior-upper medial femoral condyle unlikely to be clinically significant as there are no degenerative changes in the patellofemoral articulation. No other marrow abnormalities at any site to suggest bony trauma, tumor or infection. No focal osteochondral defects. In general the articular cartilage is well preserved. No significant joint effusion. Tiny popliteal cyst. Distal quadriceps and patellar tendon and patellar retinacula are intact. Procedure Note Iraj Ott MD - 10/03/2020 TECHNIQUE: 1.5 Yenifer scanner. Nonenhanced exam. Compare to plain films 09/21/2020 FINDINGS: A horizontal flap tear exits the inferior surface of the posterior horn ofthe medial meniscus. Lateral meniscus intact. Cruciate and collateral ligaments intact. There is a small, focal subchondral cyst in the anterior-upper medialfemoral condyle unlikely to be clinically significant as there are nodegenerative changes in the patellofemoral articulation. No other marrow abnormalities at any site to suggest bony trauma, tumor orinfection. No focal osteochondral defects. In general the articularcartilage is well preserved. No significant joint effusion. Tiny popliteal cyst. Distal quadriceps and patellar tendon and patellar retinacula areintact. IMPRESSION: 1. Horizontal flap tear posterior horn medial meniscus. 2. Tiny popliteal cyst. 3. No other internal pathology is apparent. POS [id number] Sheri RODRIGUEZ MR EXTREMITY documented in this encounter Visit Diagnoses Diagnosis Right knee pain, unspecified chronicity- Primary Right knee pain, unspecified chronicity documented in this encounter Additional Health Concerns Infection Onset Date Last Indicated Resolved Time CoV-Risk 02/28/2021 02/28/2021 03/10/2021 1:41 AM EDT documented as of this encounter Care Teams Re Recording Mixer Relationship Specialty Start Date End Date Ramirez Wilhelm DO PCP - General 05/07/17 10/13/24 Ramirez Wilhelm DO 179 [facility] [place] [address] PCP - General Internal Medicine 10/14/24 Ramirez Wilhelm DO Historical LMR Provider 05/07/17 Estefany Jackson NP 100 [facility] 340 [place] [address] Historical LMR Provider 05/07/17 2 Belen Olvera MD [address] [email or web address] Historical LMR Provider 05/07/17 Laurie Lopez NP [address]455 [place] [address] Historical LMR Provider 05/07/17 2 Fide Atkinson NP 21 [place] [address] [email or web address] Historical LMR Provider 05/07/17 2 Summer Marrufo MD 15 [facility], 2nd [place] [address] [email or web address] Historical LMR Provider 05/07/17 Carlyle Ayon MD [address] [place] [address] 202 [place] [address] Historical LMR Provider 05/07/17 07/30/21 Camron Richey MD [address] [place] [address] 102 [place] [address] Historical LMR Provider 05/07/17 07/30/21 Laura Nicholas, SCAR Historical LMR Provider 05/07/17 07/30/21 Marci Contreras NP [address] [place] [address] Historical LMR Provider 05/07/17 2 Ramirez Wilhelm DO [address] [place] [address] [place] [address] Insurance Assigned Provider 05/29/20 10/28/22 documented as of this encounter Additional Source Comments The information contained in this document represents components of the legal health record. It is not the complete legal health record.[facility]
--- OUTSIDE RECORDS SUMMARY | 2024-10-21 19:11 | XMS_ITS | Encounter Summary ---
Author Organization [facility] Address [address] [facility] [address] [place] [address] Phone Care Team Providers Care Labor Economist Name Role Phone Ramirez Wilhelm DO Unavailable Estefany Jackson JOB DEVELOPER FOR DEAF ADULTS Unavailable [phone] Belen Olvera MD Unavailable [phone] Laurie Lopez JOB DEVELOPER FOR DEAF ADULTS Unavailable [phone] Fide Atkinson NP Unavailable [phone] Summer Marrufo MD Unavailable [phone] Carlyle Ayon MD Unavailable Camron Richey MD Unavailable [phone] Laura Nicholas RDCS Unavailable [email or web address] Marci Contreras JOB DEVELOPER FOR DEAF ADULTS Unavailable [phone] Ramirez Wilhelm DO Primary Care Provider [phone] Ramirez Wilhelm DO Unavailable Ramirez Wilhelm DO Primary Care Provider [phone] Encounter Details Date Type Department Care Team (Late st Contact Info) Description 09/16/2020 Procedure Pass Non-Invasive Cardiology [address] [place], [place] [id number] Social History Tobacco Use Types Packs/Day Years [...] Upcoming Encounters Date Type Department Care Team ([facility] st Contact Info) Description 01/28/2025 1:45 PM EDT Office Visit [facility] [address] [place] [address] [address] [place] [address] Jimy Morales MD 22 [facility] 301 [place] [address] documented as of this encounter Visit Diagnoses Not on filedocumented in this encounter Additional Health Concerns Infection Onset Date Last Indicated Resolved Time CoV-Risk 02/28/2021 02/28/2021 03/10/2021 1:41 AM EDT documented as of this encounter Care Teams Labor Economist Relationship Specialty Start Date End Date Ramirez Wilhelm DO PCP - General 05/07/17 10/13/24 Ramirze Wilhelm DO 179 [facility] [place] [address] [place] [address] PCP - General Internal Medicine 10/14/24 Ramirez Wilhelm DO Historical LMR Provider 05/07/17 Estefany Jackson NP [address] [place] [address] Historical LMR Provider 05/07/17 2 Belen Olvera MD 22 [facility] [address] [place] [address] Historical LMR Provider 05/07/17 Laurie Lopez NP [address] [place] [address] Historical LMR Provider 05/07/17 2 Fide Atkinson NP 21 [place] [address] [email or web address] Historical LMR Provider 05/07/17 2 Summer Marrufo MD 15 [facility], 2nd [place] [address] Historical LMR Provider 05/07/17 Carlyle Ayon MD [address] [address] Historical LMR Provider 05/07/17 07/30/21 Camron Richey MD [address] [address] Historical LMR Provider 05/07/17 07/30/21 Laura Nicholas RDCS Historical LMR Provider 05/07/17 07/30/21 Marci Contreras NP [address] [place] [address] Historical LMR Provider 05/07/17 2 Ramirez Wilhelm DO [address] [place] [address] [place] [address] [email or web address] Insurance Assigned Provider 05/29/20 10/28/22 documented as of this encounter Additional Source Comments The information contained in this document represents components of the legal health record. It is not the complete legal health record.[facility]
--- OUTSIDE RECORDS SUMMARY | 2024-10-21 19:11 | XMS_ITS | Encounter Summary ---
Author Organization [facility] Address [address] [facility] [address] [place] [address] Phone Care Team Providers Care Wood Fence Erector Name Role Phone Choco Ramirez Le DO Unavailable Estefany Jackson ACUTE CARE NURSE Unavailable [phone] Belen Olvera MD Unavailable Laurie Lopez ACUTE CARE NURSE Unavailable Fide Atkinson NP Unavailable Summer Marrufo MD Unavailable Carlyle Ayon MD Unavailable Camron Richey MD Unavailable [phone] Laura Nicholas RDCS Unavailable [email or web address] Marci Contreras ACUTE CARE NURSE Unavailable [phone] Ramirez Wilhelm DO Primary Care Provider [phone] Ramirez Wilhelm DO Unavailable Ramirez Wilhelm DO Primary Care Provider [phone] Encounter Details Date Type Department Care Team (Latest Contact Info) Description 08/17/2020 Transcribe Orders [address] [place] [address] Sheri Flowers NP 10 [place], [place] [id number] [email or web address] Routine general medical examination at a health care facility (Primary Dx) Social History Tobacco Use Types [...] Description 01/28/2025 1:45 PM EDT Office Visit [facility] [address] [place] [address] Jimy Morales MD [address] [place] [address], [address] [phone] [email or web address] documented as of this encounter Results * C-Reactive Protein (08/17/2020 10:04 AM EST) [facility] C REACTIVE PROTEIN 2.2 0.0 - 4.0 mg/L [facility] Blood 08/17/2020 10:0 4 AM EST 08/17/2020 10:07 AM EST Sheri Flowers ACUTE CARE NURSE LAB BLOOD ORDERABLE S [facility] [address] [place], [place] [id number] * Comprehensive metabolic panel (08/17/2020 10:04 AM EST) [facility] SODIUM 139 133 - 146 mmol/L [facility] POTASSIUM 4.3 3.3 - 5.1 mmol/L [facility] CHLORIDE 103 96 - 108 mmol/L [facility] CO2 25 21 - 35 mmol/L [facility] BUN 14 6 - 19 mg/dL [facility] CREATININE 0.80 0.5 - 1.5 mg/dL [facility] GLUCOSE 90 70 - 99 mg/dL [facility] ALBUMIN 4.1 3.9 - 4.8 g/dL [facility] TOTAL PROTEIN 7.3 6.5 - 8.0 g/dL [facility] CALCIUM 9.8 8.4 - 10.3 mg/dL [facility] ALKALINE PHOSPHATASE 60 39 - 117 U/L [facility] TOTAL BILIRUBIN 0.3 0.0 - 1.2 mg/dL [facility] AST 21 0 - 37 U/L [facility] ALT 30 0 - 40 U/L [facility] GLOBULIN 3.2 1 - 4.8 g/dL [facility] EGFR 80 >59 mL/min/1.7 3m2 [facility] Comment:Estimated glomerular filtration rate calculated using the CKD-EPI equation. ANION GAP 15 10 - 20 mmol/L [facility] Blood 08/17/2020 10:0 4 AM EST 08/17/2020 10:07 AM EST Sheri Flowers ACUTE CARE NURSE LAB BLOOD ORDERABLE S Performing Organization Address City/State/[facility] Co de Phone Number [address] [address] * CBC and differential (08/17/2020 10:04 AM EST) WBC 6.63 4.00 - 11.00 K/uL [facility] Comment:Note Reference Range updates to all CBC and Differential results. RBC 4.91 3.72 - 5.30 M/uL [facility] HGB 14.2 11.4 - 15.9 g/dL [facility] Comment:Note updated Referen ce Ranges for all CBC and Differential results. HCT 42.3 34.2 - 46.8 % [facility] PLT 237 140 - 430 K/uL [facility] MCV 86.2 78.0 - 97.0 fL [facility] MCH 28.9 25.0 - 33.0 pg [facility] MCHC 33.6 32.0 - 36.0 g/dL [facility] RDW 12.1 11.0 - 16.0 % [facility] MPV 11.0 8.4 - 12.8 [facility] NRBC 0.00 0 /100 WBCs [facility] ABSOLUTE NRBC 0.00 0 K/uL [facility] DIFF METHOD Auto [facility] NEUTS 54.9 43.0 - 75.0 % [facility] LYMPHS 31.4 18.2 - 47.4 % [facility] MONOS 8.9 4.00 - 11.00 % [facility] EOS 2.9 0.0 - 8.0 % [facility] BASOS 1.1 0.0 - 2.0 % [facility] Granulocytes, immature (%) 0.8 0.0 - 0.9 % [facility] ABSOLUTE NEUTS 3.65 1.80 - 7.70 K/uL [facility] ABSOLUTE LYMPHS 2.08 1.00 - 3.10 K/uL [facility] ABSOLUTE MONOS 0.59 0.20 - 0.80 K/uL [facility] ABSOLUTE EOS 0.19 0.00 - 0.80 K/uL [facility] ABSOLUTE BASOS 0.07 0.00 - 0.09 K/uL [facility] Granulocytes, immature 0.05 0.00 - 0.05 K/uL [facility] Blood 08/17/2020 10:0 4 AM EST 08/17/2020 10:07 AM EST Sheri Flowers ACUTE CARE NURSE LAB BLOOD ORDERABLE S Performing Organization Address City/State/[facility] Co de Phone Number [facility] [address] [place] [address] documented in this encounter Visit Diagnoses Diagnosis Routine general medical examination at a health care facility- Primary documented in this encounter Additional Health Concerns Infection Onset Date Last Indicated Resolved Time CoV-Risk 02/28/2021 02/28/2021 03/10/2021 1:41 AM EDT documented as of this encounter Care Teams Wood Fence Erector Relationship Specialty Start Date End Date Ramirez Wilhelm DO PCP - General 05/07/17 10/13/24 Ramirez Wilhelm DO 179 [place] [address] PCP - General Internal Medicine 10/14/24 Ramirez Wilhelm DO Historical LMR Provider 05/07/17 Estefany Jackson NP 100 [facility] 340 [place] [address] Historical LMR Provider 05/07/17 2 Belen Olvera MD [address] [address] [email or web address] Historical LMR Provider 05/07/17 Laurie Lopez NP [address] [place] [phone] Historical LMR Provider 05/07/17 2 Fide Atkinson NP 21 [place] [address] [email or web address] Historical LMR Provider 05/07/17 2 Summer Marrufo MD 15 [facility], 2nd [place] [address] Historical LMR Provider 05/07/17 Carlyle Ayon MD [address] [place] [address] Historical LMR Provider 05/07/17 07/30/21 Camron Richey MD [address] [place] [address] Historical LMR Provider 05/07/17 07/30/21 Laura Nicholas RDCS [email or web address] Historical LMR Provider 05/07/17 07/30/21 Marci Contreras NP [address] [place] [address] Historical LMR Provider 05/07/17 2 Ramirez Wilhelm DO [address] [place] [address] [email or web address] Insurance Assigned Provider 05/29/20 10/28/22 documented as of this encounter Additional Source Comments The information contained in this document represents components of the legal health record. It is not the complete legal health record.[facility]
--- OUTSIDE RECORDS SUMMARY | 2024-10-21 19:11 | XMS_ITS | Encounter Summary ---
Author Organization [facility] Address [address] [place] [address] Phone Care Team Providers Care Php Web Developer Name Role Phone Choco Ramirez Le DO Unavailable Belen Olvera MD Unavailable [phone] Ramirez Wilhelm DO Primary Care Provider [phone] Encounter Details Date Type Department Care Team (Late st Contact Info) Description 10/21/2024 Ancillary Orders [facility], X-Ray - [address] [place] [address] Sheri Ray PA [address] [place] [address] [place] [address] Left elbow pain (Primary Dx); Painful urination Social History Tobacco Use Types Packs/Day Years [...] Description 01/28/2025 1:45 PM EDT Office Visit [facility] [address] [place] [address] 301 [place] [address] Jimy Morales MD 22 [facility], [address] [place] [address] [email or web address] Pending Results Name Type Priority Associated Diagnoses Date /Time XR Elbow (Left) Imaging Routine Left elbow pain 10/21/2024 3:59 PM EDT Scheduled Orders Name Type Priority Associated Diagnoses Orde r Schedule XR Elbow (Left) Imaging Routine Left elbow pain 1 Occurrences starting 10/21/2024 until 01/20/2025 documented as of this encounter Results * XR ABDOMEN 1 VIEW (10/21/2024 3:59 PM EDT) Anatomical Region Laterality Modality Abdomen Computed Radiogr aphy 10/21/2024 4:42 PM EDT Impressions 10/21/2024 4:42 PM EDT Nonobstructive bowel gas pattern. Narrative 10/21/2024 4:42 PM EDT XR ABDOMEN 1 VIEW Referring clinician's provided indication for this examination in [facility]: Pain COMPARISON: CT ABDOMEN/PELVIS WITH CONTRAST FINDINGS: Tubes/Lines: None Visualized lower chest: Unremarkable. Abdomen: No dilated loops of bowel. ??Mild colonic stool. Bones/Soft Tissues: No acute osseous finding. Procedure Note Laurita Urrutia MD - 10/21/2024 XR ABDOMEN 1 VIEW Referring clinician's provided indication for this examination in [facility]:Pain COMPARISON: CT ABDOMEN/PELVIS WITH CONTRAST FINDINGS: Tubes/Lines: None Visualized lower chest: Unremarkable. Abdomen: No dilated loops of bowel. Mild colonic stool. Bones/Soft Tissues: No acute osseous finding. IMPRESSION: Nonobstructive bowel gas pattern. Sheri GALLARDO IMG XR ABDOMEN documented in this encounter Visit Diagnoses Diagnosis Left elbow pain- Primary Pain in joint, upper arm Painful urination Dysuria Painful urination Dysuria documented in this encounter Care Teams Php Web Developer Relationship Specialty Start Date End Date Ramirez Wilhelm DO 179 [facility] [address] PCP - General Internal Medicine 10/14/24 Ramirez Wilhelm DO [email or web address] Historical LMR Provider 05/07/17 Belen Olvera MD [address] [place] [address] 102 [place] [address] Historical LMR Provider 05/07/17 documented as of this encounter Additional Source Comments The information contained in this document represents components of the legal health record. It is not the complete legal health record.[facility]
--- OUTSIDE RECORDS SUMMARY | 2024-10-21 19:12 | XMS_ITS | Encounter Summary ---
Author Organization [facility] Address [address] [facility] [address] [place] [address] Phone Care Team Providers Care Energy Efficient Site Manager Name Role Phone Ramirez Wilhelm DO Unavailable Estefany Jackson SENIOR SOFTWARE TESTER Unavailable [phone] Belen Olvera MD Unavailable [phone] Laurie Lopez SENIOR SOFTWARE TESTER Unavailable [phone] Fide Atkinson NP Unavailable [phone] Summer Marrufo MD Unavailable [phone] Carlyle Ayon MD Unavailable Camron Richey MD Unavailable [phone] Laura Nicholas RDCS Unavailable [email or web address] Marci Contreras SENIOR SOFTWARE TESTER Unavailable [phone] Ramirez Wilhelm DO Primary Care Provider [phone] Ramirez Wilhelm DO Unavailable Ramirez Wilhelm DO Unavailable + BigRamirez schmid DO Primary Care Provider + Encounter Details Date Type Department Care Team (Late st Contact Info) Description 05/22/2017 Ancillary Orders [facility] Department [address] [place] [address] System, Provider Not In, [employer] [address] [address] Flank pain Social History Tobacco Use Types Packs/Day Years Used Date Smoking Tobacco: Never Assessed Sex and Gender Information Value Date Recorded Sex Assigned at Not on file Gender Identity Not on file Sexual Orientation Not on file documented as of this encounter Plan of Treatment Upcoming Encounters Date Type Department Care Team ([facility] st Contact Info) Description 01/28/2025 1:45 PM EDT Office Visit [facility] [address] [place] [address] [address] [place] [address] Jimy Morales MD 22 [facility] [address] [place] [address] documented as of this encounter Visit Diagnoses Diagnosis Flank pain Abdominal pain, unspecified site documented in this encounter Additional Health Concerns Infection Onset Date Last Indicated Resolved Time CoV-Risk 02/28/2021 02/28/2021 03/10/2021 1:41 AM EDT documented as of this encounter Care Teams Energy Efficient Site Manager Relationship Specialty Start Date End Date Ramirez Wilhelm DO PCP - General 05/07/17 10/13/24 Ramirez Wilhelm DO 179 [facility] [place] [address] [place] [address] PCP - General Internal Medicine 10/14/24 Ramirez Wilhelm DO Historical LMR Provider 05/07/17 Estefany Jackson NP [address] [place] [address] Historical LMR Provider 05/07/1707/30/ 2 Belen Olvera MD 22 [facility] [address] [place] [address] [email or web address] Historical LMR Provider 05/07/17 Laurie Lopez NP [address] [place] [address] Historical LMR Provider 05/07/17 2 Fide Atkinson NP 21 [place] [address] [email or web address] Historical LMR Provider 05/07/17 2 Summer Marrufo MD 15 [facility], 2nd [place] [address] Historical LMR Provider 05/07/17 Carlyle Ayon MD [address] [place] [address] 202 [place] [address] Historical LMR Provider 05/07/17 07/30/21 Camron Richey MD 22 [facility] 102 [place] [address] Historical LMR Provider 05/07/17 07/30/21 Laura Nicholas, RDCS Historical LMR Provider 05/07/17 07/30/21 Marci Contreras NP [address] [place] [address] Historical LMR Provider 05/07/17 2 Ramirez Wilhelm DO [address] [place] [address] [place] [address] [email or web address] Insurance Assigned Provider 11/23/18 05/01/20 Ramirez Wilhelm DO [address] [place] [address] [address] [place] [address] Insurance Assigned Provider 05/29/20 10/28/22 documented as of this encounter Additional Source Comments The information contained in this document represents components of the legal health record. It is not the complete legal health record.[facility]
--- OUTSIDE RECORDS SUMMARY | 2024-10-21 19:12 | XMS_ITS | Encounter Summary ---
Author Organization [facility] Address 399 [facility] [address] [place] [address] Phone Care Team Providers Care Document Preparation Specialist Name Role Phone Ramirez Wilhelm DO Unavailable Estefany Jackson BUSINESS SYSTEMS ADVISOR Unavailable Belen Olvera MD Unavailable Laurie Lopez BUSINESS SYSTEMS ADVISOR Unavailable Fide Atkinson NP Unavailable Summer Marrufo MD Unavailable Carlyle Ayon MD Unavailable Camron Richey MD Unavailable [phone] Laura Nicholas RDCS Unavailable [email or web address] Marci Contreras BUSINESS SYSTEMS ADVISOR Unavailable [phone] Ramirez Wilhelm DO Primary Care Provider [phone] Ramirez Wilhelm DO Unavailable Ramirez Wilhelm DO Unavailable + Ramirez Wilhelm DO Primary Care Provider [phone] Encounter Details Date Type Department Care Team (Late st Contact Info) Description 06/28/2017 Ancillary Orders Virtual Department 30 [place] [address] Ramirez Wilhelm DO 179 [facility] [place] [address] [place] [address] Visit for screening mammogram Social History Tobacco Use Types Packs/Day Years Used Date Smoking Tobacco: Never Assessed Sex and Gender Information Value Date Recorded Sex Assigned at Not on file Gender Identity Not on file Sexual Orientation Not on file documented as of this encounter Plan of Treatment Upcoming Encounters Date Type Department Care Team (Late st Contact Info) Description 01/28/2025 1:45 PM EDT Office Visit [facility] [address] [place] [address] 301 [place] [address] Jimy Morales MD 22 [facility], [address] [place] [address] [email or web address] documented as of this encounter Results * BI MAMMOGRAM SCREENING WITH TOMOSYNTHESIS WITH CAD (BILATERAL) (08/20/2017 8:59 AM EST) Anatomical Region Laterality Modality Breast Left, Breast Right, Breast Bilateral Bila teral Mammography 08/20/2017 9:19 AM EST Impressions 08/20/2017 9:21 AM EST No mammographic change indicative of malignancy. ??Annual screening is recommended. ? BI-RADS CATEGORY: 2 - Benign finding. DENSITY: ??The breast tissue is heterogeneously dense, an appearance which lowers the sensitivity of mammography. ?? POS -CDHMAMA Narrative 08/20/2017 9:21 AM EST Bilateral full-field digital screening mammography is obtained and read in conjunction with computer-aided detection. ??Tomosynthesis as well as 2-D C view imaging of both breasts in two planes also obtained. ??Comparison made to multiple prior, most recent 08/17/2016, and most remote 03/30/2011. No dominant mass, architectural distortion, worrisome asymmetry, or suspicious calcification is identified. No skin or nipple finding of concern is appreciated. ??Punctate calcifications are unchanged. Procedure Note Amanda Payne MD - 08/20/2017 Bilateral full-field digital screening mammography is obtained and read inconjunction with computer-aided detection. Tomosynthesis as well as 2-D Cview imaging of both breasts in two planes also obtained. Comparison madeto multiple prior, most recent 08/17/2016, and most remote 03/30/2011. No dominant mass, architectural distortion, worrisome asymmetry, orsuspicious calcification is identified. No skin or nipple finding ofconcern is appreciated. Punctate calcifications are unchanged. IMPRESSION: No mammographic change indicative of malignancy. Annual screening isrecommended. BI-RADS CATEGORY: 2 - Benign finding. DENSITY: The breast tissue is heterogeneously dense, an appearance whichlowers the sensitivity of mammography. POS -CDHMAMA Ramirez Wilhelm DO IMG MG EXAMS documented in this encounter Visit Diagnoses Diagnosis Visit for screening mammogram Visit for screening mammogram documented in this encounter Additional Health Concerns Infection Onset Date Last Indicated Resolved Time CoV-Risk 02/28/2021 02/28/2021 03/10/2021 1:41 AM EDT documented as of this encounter Care Teams Document Preparation Specialist Relationship Specialty Start Date End Date Ramirez Wilhelm DO PCP - General 05/07/17 10/13/24 Ramirez Wilhelm DO 179 [place] [address] PCP - General Internal Medicine 10/14/24 Ramirez Wilhelm DO Historical LMR Provider 05/07/17 Estefany Jackson NP [address] [address] Historical LMR Provider 05/07/17 2 Belen Olvera MD [address] [address] Historical LMR Provider 05/07/17 Laurie Lopez NP [address] [place] [address] Historical LMR Provider 05/07/17 2 Fide Atkinson NP 21 [place] [address] [email or web address] Historical LMR Provider 05/07/17 2 Summer Marrufo MD 15 [facility], 2nd [place] [address] Historical LMR Provider 05/07/17 Carlyle Ayon MD [address] [place] [address] Historical LMR Provider 05/07/17 07/30/21 Camron Richey MD [address] [address] Historical LMR Provider 05/07/17 07/30/21 Laura Nicholas, [place] Historical LMR Provider 05/07/17 07/30/21 Marci Contreras NP [address] [place] [address] Historical LMR Provider 05/07/17 2 HeatherRamirez schmid DO [address] [place] [address] [email or web address] Insurance Assigned Provider 11/23/18 05/01/20 Ramirez Wilhelm DO 179 [place] [address] Insurance Assigned Provider 05/29/20 10/28/22 documented as of this encounter Additional Source Comments The information contained in this document represents components of the legal health record. It is not the complete legal health record.[facility]
[2024-10-21 19:20] LABS: Appearance Urine Clear; Color Urine Yellow; Glucose Urine UA Negative (Negative); Leukocyte Esterase Urine Trace (Negative); Nitrite Urine Negative (Negative); PH 5.5 (5.0-9.0); Specific Gravity - Urine 1.015 (1.005-1.025); UMIC TRIGGER UACC YES; Urine Blood Negative (Negative); Urine Ketones Negative (Negative); Urine Protein Negative (Neg-Trace)
[2024-10-21 19:25] LABS: Bacteria Urine None Seen (None Seen); Hyaline Casts Urine 0-2 /LPF (0-2); RBC Urine 0-2 /HPF (0-2); Squamous Epithelial Cell Urine 0-2 /HPF (0-2); WBC Urine 0-5 /HPF (0-5)
== END 2024-10-21 18:10 | disposition home or self-care (01) ==
LOC: HO.LNP 18:09
PROVIDERS: Visit Provider Physician Assistant
DX: R30.9 Painful micturition, unspecified (principal)
CPT/HCPCS: 81001